=== PATIENT | male | born 1955 | race Caucasian/White ===

== ENCOUNTER 2019-07-21 12:56 | Outpatient (CLI) | payer BC, SELFPAY ==
--- NOTE | 2019-07-22 17:02 | ONC CON_ITS ---
Dr. West New Patient Note Patient: Lele Chowdhury Unit #: [id number]: 1955 Dicatated By: Calos West M.D.Date of Visit: Jul 21, 2019 Onc MED New Patient/Consult Referring Physician: Dr. Dionte Moss M.D. History of Present Illness: Mr. Alberto Chowdhury, is a 64-year-old gentleman with a history of tubulovillous adenoma involving cecum as per biopsies done in 2018 per colonoscopy patient underwent follow-up colonoscopy in May 2019 which showed benign fibroblastic polyp in sigmoid colon but more concerning was a large broad-based polyp in the cecum any sizable portion of this was removed with a snare and cannot pubic tubercle villous adenoma on superficial biopsies eventually patient underwent cecum and the right ascending colon/right hemicolectomy on 06/26/2019 which showed moderately differentiated adenocarcinoma tumor size 1 cm margins of resection free of malignancy tumor invades superficially into muscularis propria but not through the muscularis propria pT1 0 out of 15 lymph nodes were negative pN0 , there was incidental finding of adenocarcinoma tumor deposits present in the pericolonic tissue measuring up to 4 mm in greatest dimension. pN1c stage IIIa Patient denies any history of melena or hematochezia denies any history of abdominal pain patient denies any history of nausea vomiting denies any history of jaundice patient underwent CT scan of abdomen pelvis on 06/17/2019 which showed indeterminate right renal mass otherwise no evidence of metastatic disease Past Medical History: Mr. Chowdhury's medical history consists of anxiety, depression, and gastroesophageal reflux disease. Past Surgical History: Mr. Chowdhury's surgical/procedural history consists of colonoscopy, esophageal biopsy, and exploratory laparotomy with right hemicolectomy. Medications: There is no information available for Current Medications - Patient. Allergies: No Known Allergies. 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 He is a daily smoker who has smoked 0.5 packs/day for 30 years. He has no history of drinking. He has indicated exposure to the following products: cigarettes. Mr. Chowdhury reports the following support systems: lives with spouse, significant other, family, or friends, lives in own house, supportive family/friends willing to assist with needs, and adequate transportation available for expected visits. His diet consists of regular meals. He indicates his activity level as: regular exercise. Family History: Mr. Chowdhury's mother at age 76: Alzheimer's disease. Mr. Chowdhury's father is . Review Of Symptoms: Constitutional - Appetite is good and weight is stable. No fever, chills, hot flashes, or night sweats. Energy level is fair, ENMT - No sinus congestion/drainage. No mouth sores. No sore throat or difficulty swallowing, Hematologic/Lymphatic - No abnormal bruising or bleeding, Respiratory - No shortness of breath. No cough. No pleuritic pain or hemoptysis, Cardiovascular - No angina pain. No palpitations, Gastrointestinal - No nausea or vomiting. No heartburn or acid reflux. Positive for diarrhea, no constipation. No blood in the stool or black stools, Genitourinary (M) - No dysuria or hematuria. Positive for urinary frequency and urgency. No incontinence, Musculoskeletal - No joint or bone pain, Neurologic - No headache. Occasional dizziness. No numbness/paresthesias or other focal neurologic symptoms, Psychiatric - No anxiety or depression. No insomnia. Vital Signs: Performed on Jul 21, 2019 14:16: 0, 24.42, 1.93 sq.m, 69.5 in, 96 %, 74 /min, 18 /min, 141/71 mm(hg) (HIGH), 98.2 F (LOW), and 167.8 lbs (HIGH). Performance Status: 1 - No physically strenuous activity, but ambulatory and able to carry out light or sedentary work (e.g. office work, light house work). (ECOG) Physical Examination: ENMT - No oral exudates, ulcers, masses, thrush or mucositis. Oropharynx clear. Tongue normal, Respiratory - Lungs are clear to auscultation without rhonchi or wheezing, Cardiovascular - Regular rate and rhythm of heart, Abdomen - Non-tender, non-distended, Good bowel sounds. No guarding or rebound tenderness. No pulsatile masses.well shey surgical scar, Extremities - no edema. Lab/Imaging: Most recent lab results are not available for this patient. Impression: Moderately differentiated adenocarcinoma involving cecum status post right hemicolectomy final pathology report showed 1 cm invasive tumor margins were clear tumor invades superficially into muscularis propria but not through the muscularis propria pT1 0 out of 15 lymph nodes were negative pN0 Adenocarcinoma tumor deposits present in the pericolonic tissue measuring up to 4 mm in greatest dimension pN1c Pathological stage III a Plan: Discussed with patient regarding his disease status and final pathology report, as per pathology, patient has 1 cm invasive tumor with clear surgical margins and 0 out of 15 lymph nodes positive for metastatic disease but concern is pericolonic deposit measuring up to 4 mm. Very unusual with small size, low-grade, lymph node negative tumor At this point , we will review his path with pathologist to confirm pericolonic involvement as this will upstage his disease to stage IIIa , in that case as per N CCN guidelines he would be a candidate for adjuvant chemotherapy with FOLFOX every 2 weeks ???12. Patient is reluctant to consider chemotherapy but would consider if needed. Patient was reassured that we will discuss his case with pathology in detail and once confirmed then will make further decision so patient will return to clinic in 2 weeks with CBC CMP and for further discussion Signed By: Calos West M.D. <<Signature on File>>
== END 2019-07-21 12:57 | disposition home or self-care (01) ==
PROVIDERS: Visit Provider Internal Medicine Hematology & Oncology
DX: C18.2 Malignant neoplasm of ascending colon (principal); N28.89 Other specified disorders of kidney and ureter; F41.8 Other specified anxiety disorders; K21.9 Gastro-esophageal reflux disease without esophagitis; F17.210 Nicotine dependence, cigarettes, uncomplicated; Z90.49 Acquired absence of other specified parts of digestive tract
CPT/HCPCS: 88361; 88367; 88374; 99203

== ENCOUNTER 2019-07-29 02:02 | Emergency (ER) | payer BC, SELFPAY ==
[2019-07-29 02:09] VITALS: BP 148/84; PULSE 61; RESP 18; TEMP 36.7; O2SAT 98; BMI 25.4
--- NOTE | 2019-07-29 02:13 | ED_ITS ---
Entered by Danna Burnett, acting as scribe for Haven Boykin HPI - Eye Problem General: Chief complaint: Eye Problems Stated complaint: HIT IN EYE BY LIMB Time Seen by Provider: 07/29/19 02:13 Source: patient Mode of arrival: ambulatory History of Present Illness: HPI Narrative: 64 y/o male presents to the ED with complaint of eye pain post injury. Pt states he was cutting tree limbs with a chainsaw just before dark, yesterday evening when a branch hit him in the left eye. Pt states he waited to come in because he thought it would improve. Pt tried to sleep but was unsuccessful. MD chief complaint: eye pain and eye injury Onset (ago): day(s) (1) Onset description: sudden Duration: constant Location: left eye Eye Symptoms: pain Place: home Mechanism: direct trauma Severity: mild Associated symptoms: Denies fever(s), headache(s), nausea, neck pain or vomiting Review of Systems Const: Denies: fever, chills, body aches, fatigue, malaise or diaphoresis Eyes: Reports: other (See HPI) ENMT: Denies: throat pain, painful swallowing, hoarseness, ear pain, ear discharge, Change in hearing or nasal discharge Card: Denies: chest pain, palpitations, irregular heart rhythm, syncope, pre- syncope, shortness of breath on exertion or shortness of breath when lying down Resp: Denies: shortness of breath, productive cough, non-productive cough, wheezing, coughing up blood or chest congestion GI: Denies: abdominal pain, nausea, vomiting, vomiting blood, coffee grounds in vomit, diarrhea, constipation, cramping, blood in stool or black tarry stool : Denies: flank pain, difficulty urinating, painful urination, urinary frequency, urinary urgency, decreased urine ouput, urinary incontinence or blood in urine Musc: Denies: neck pain, back pain, extremity pain, extremity swelling, joint pain, joint swelling, joint warmth or joint stiffness Skin/Breast: Denies: rash, skin tenderness or yellow skin Neuro: Denies: headache, numbness in extremities, weakness in extremities, changes in sensation, lack of coordination, difficulty walking, dizziness, vertigo or confusion Endo: Denies: excessive thirst, tired all the time, cold intolerance, excessive sweating, flushing or hot flashes Ridge/Lymph: Denies: easy bruising, easy bleeding, petechiae or enlarged lymph nodes All/Imm: Denies: hives, throat swelling, tongue swelling, facial swelling or acute wheezing PFSH ED PFSH: Statuses (acute, chronic, etc) shown below reflect problem list status as previously entered and may not be historically accurate Social History Smoking and tobacco status: current every day smoker Physical Exam Const: COMMON NORMALS: no apparent distress, oriented x3, no limitations, healthy appearing and well nourished EXAM LIMITATIONS: no altered mental status GENERAL APPEARANCE: cooperative, well kempt and well developed ORIENTATION/CONSCIOUSNESS: Yes awake HENMT: COMMON NORMALS: normocephalic, head/scalp atraumatic, hearing grossly normal bilaterally, external ears normal, EAC's normal, external nose normal and moist oral mucous membranes HEAD & SCALP: normal to inspection, normocephalic and atraumatic FACE & SINUS: normal facial exam and face symmetric NOSE: external nose normal and nares normal EXTERNAL EAR: Yes external ears normal EXTERNAL AUDITORY CANAL: EAC's normal MOUTH: oral and palatal mucosa normal and tongue normal Eye: COMMON NORMALS: PERRL, EOMs intact bilaterally, conjunctivae normal, no scleral icterus, no papilledema and normal visual montoya by confrontation GENERAL EYE: normal appearance of both eyes and normal light reflex VISUAL ACUITY: Yes acuity normal VISUAL MONTOYA: No peripheral vision loss and No central vision loss ALIGNMENT: Yes alignment normal PERIORBITAL: periorbital findings normal EYELID: eyelids normal CONJUNCTIVA: Yes conjunctivae normal SCLERA: sclerae normal CORNEA: Yes fluorescein used and other (Small corneal abrasion noted to the left eye at the 3 o'clock position) PUPIL: Yes PERRL, No anisocoria, No dilated, No fixed, No irregular, No not reactive and Yes other (Negative Vicenta's test on the left) EOM: Yes EOM abnormal, No movement deficit and No nystagmus DIRECT OPHTHALMOSCOPY: Yes normal light reflex, Yes no papilledema, Yes anterior chamber normal (No sign of hyphema or cell and flare reaction in the anterior chamber) and Yes photophobia SLIT LAMP EXAM: Yes slit lamp exam performed with fluorescein, Yes lids/lashes/lacrimal system and Yes cornea (Small corneal abrasion at the 3 o'clock position of the left eye.) Neck/C-Spine: COMMON NORMALS: full ROM, no lymphadenopathy, supple, no meningeal signs and no JVD GENERAL: Yes normal visual inspection and Yes trachea midline CERVICAL SPINE: Yes cervical ROM normal Chest: COMMONS NORMALS: inspection of chest normal and palpation of chest normal Resp: COMMON NORMALS: normal respiratory effort, no retractions, no use of accessory muscles and clear to auscultation bilaterally EFFORT & INSPECTION: Yes able to speak in complete sentences AUSCULTATION: clear to auscultation bilaterally Cardio: COMMON NORMALS: no JVD, regular rate, regular rhythm, S1 normal heart sound, S2 normal heart sound, no gallops, no clicks, no murmurs and no rub JUGULAR VENOUS DISTENTION: no JVD RATE: regular rate RHYTHM: regular rhythm HEART SOUNDS: S1 normal and S2 normal GI: COMMON NORMALS: soft to palpation, non-tender, no hepatosplenomegaly and no masses INSPECTION: Yes normal to inspection PALPATION: Yes soft and Yes no hepatosplenomegaly : COMMON NORMALS: Yes no CVA tenderness BLADDER/KIDNEY EXAM: Yes no CVA tenderness Back/Pelvis: COMMON NORMALS: no CVA tenderness, thoracic and lumbar spine no rmal to inspection, no thoracic nor lumbar tenderness and thoraco-lumbar ROM normal Extremity: COMMON NORMALS: normal to inspection, full ROM, normal capillary refill, no joint enlargement, no clubbing, cyanosis or edema and no calf tenderness Neuro: COMMON NORMALS: oriented x3, CN's II-XII intact bilaterally, moves all extremities, no focal motor deficits and no sensory deficits noted MENINGEAL SIGNS: Yes no meningeal signs Psych: COMMON NORMALS: mental status grossly normal, thought process normal, cooperative, affect normal, speech normal and activity/motor behavior normal APPEARANCE: Yes well kempt SPEECH: Yes normal speech THOUGHT PROCESS: normal thought process Skin: COMMON NORMALS: no rashes or lesions noted, skin turgor normal, no jaundice, no petechiae and no mottling GENERAL SKIN EXAM: no rashes or lesions noted and turgor normal Course Vital Signs: Vital signs: Vital Signs Temperature 98.1 F 07/29/19 02:09 Pulse Rate 68 07/29/19 02:35 Respiratory Rate 16 07/29/19 02:35 Blood Pressure 148/84 07/29/19 02:35 Pulse Oximetry 94 07/29/19 02:35 MDM - Eye Problem MDM Narrative: Medical decision making narrative: Lele comes in complaining of a blow to the left eye. I see small corneal abrasion but no foreign body is obvious. I have informed him to follow-up with Dr. Yancey tomorrow but the patient is already stated he wanted to be certain nothing was in there and if not he will not follow-up. Nonetheless I will have case management contact him in the morning for an appointment to be seen later today for recheck. It is unclear whether the patient plans to make that appointment. At this time I see no sign of ruptured globe, no retained foreign body but only a corneal abrasion. I did inform the patient that there is a potential I could have missed something and a specialist will need to review this and he understands that but it appears as though he may not follow-up as advised. The patient has been warned. Discharge Plan Discharge Patient Disposition: Home, Self-Care Clinical Impression: Corneal abrasion Qualifiers: Encounter type: initial encounter Laterality: left Qualified Code(s): S05.02XA - Injury of conjunctiva and corneal abrasion without foreign body, left eye, initial encounter Condition: Stable Prescriptions: New erythromycin 5 mg/gram (0.5 %) ointment 1 applic ophthalmic (eye) Q6H Qty: 3.5 RF: 0 Discharge Orders: Discharge Order (Routine); Ordered 07/29/19 Ordered By: Haven Boykin Discharge Diet: Usual diet Discharge Activity: Increase activity as tolerated Patient Instructions: Corneal Abrasion (ED) Activity Restrictions/Additional Instructions: Please return to the ER immediately for any of the signs or symptoms listed on your discharge instruction sheets, worsening/changing of your symptoms, you are not getting better as quickly as expected, or for ANY other cause or concerns. Be certain to follow-up with Dr. Yancey later this morning in his office for recheck. If for any reason you are unable to be seen by Dr. Yancey return to the ER for recheck. Discharge Date/Time: 07/29/19 03:00 Coding Level of Care Code ED Blood Bank Specialist for Chg Fwd Exam Problem Focused The documentation recorded by the Lex childress Ashley, accurately reflects the service I personally performed and the decisions made by Lucretia horta Eli N Jul 29, 2019 02:02
[2019-07-29 02:35] VITALS: BP 148/84; PULSE 68; RESP 16; O2SAT 94
--- NOTE | 2019-07-29 02:46 | PC.NURSE ---
Introduced self to patient and initiated vital signs. Pt is A&O x 4 and agreeable. Pt states that the reason for the ER visit today is due to a left eye injury from cutting wood earlier in the day. Reassured patient of needs and will continue to monitor. Awaiting provider at bedside.
[2019-07-29] MEDS: fluorescein 1 mg Strip EYE-BOTH (03:16)
[2019-07-29] MEDS: tetracaine 0.5% Op Soln 4 mL Btl 1 DROP EYE-BOTH (03:17)
[2019-07-29] MEDS: fluorescein 1 mg Strip EYE-LEFT (03:17)
--- NOTE | 2019-07-29 11:17 | DCPLANNER ---
instrumentation manager had message to speak with patient and give patient the contact information to Dr. Yancey. instrumentation manager called patient, gave patient the phone number to Dr. Yancey office, and the address of where clinic is located. instrumentation manager offered to make a followup appointment for patient with Dr. Yancey, patient stated that he would make the appointment himself.
== END 2019-07-29 03:00 | disposition home or self-care (01) ==
PROVIDERS: Emergency Provider Emergency Medicine
DX: S05.02XA Injury of conjunctiva and corneal abrasion without foreign body, left eye, initial encounter (principal); W20.8XXA Other cause of strike by thrown, projected or falling object, initial encounter; Y92.009 Unspecified place in unspecified non-institutional (private) residence as the place of occurrence of the external cause; F17.210 Nicotine dependence, cigarettes, uncomplicated
CPT/HCPCS: 99281

== ENCOUNTER 2019-08-06 11:12 | Outpatient (CLI) | payer BC, SELFPAY ==
[2019-08-06 11:57] LABS: Basophils % 0.3 %; Eosinophils # 0.1 10^3/uL (0.0-0.8); Eosinophils % 2.3 %; Hemoglobin 16.4 g/dL (11.7-16.6); Lymphocytes # 1.9 10^3/uL (0.8-4.8); Lymphocytes % 32.1 %; Mean Corpuscular HGB Conc 33.5 g/dL (30.0-36.0); Mean Corpuscular Hemoglobin 30.9 pg (28.0-34.0); Mean Corpuscular Volume 92.5 fL (80-94); Mean Platelet Volume 9.3 fL (7.4-10.4); Monocytes # 0.7 10^3/uL (0.2-0.9); Monocytes % 10.8 %; Neutrophils # 3.3 10^3/uL (1.8-7.7); Neutrophils % 54.2 %; Nucleated Red Blood Cells % 0 %; Platelet Count 249 10^3/cmm (130-400); Red Cell Distribution Width 12.3 % (12.1-15.1)
--- NOTE | 2019-08-06 14:50 | ONC FU_ITS ---
Dr. West follow up note Patient: Lele Chowdhury Unit #: [id number]: 1955 Dicatated By: Calos West M.D.Date of Visit:Aug 06, 2019 Onc Med Follow-up/Prog Note History of Present Illness: Mr. Alberto Chowdhury, is a 64-year-old gentleman with a history of tubulovillous adenoma involving cecum as per biopsies done in 2018 per colonoscopy patient underwent follow-up colonoscopy in May 2019 which showed benign fibroblastic polyp in sigmoid colon but more concerning was a large broad-based polyp in the cecum any sizable portion of this was removed with a snare and cannot pubic tubercle villous adenoma on superficial biopsies eventually patient underwent cecum and the right ascending colon/right hemicolectomy on 06/26/2019 which showed moderately differentiated adenocarcinoma tumor size 1 cm margins of resection free of malignancy tumor invades superficially into muscularis propria but not through the muscularis propria pT1 0 out of 15 lymph nodes were negative pN0 , there was incidental finding of adenocarcinoma tumor deposits present in the pericolonic tissue measuring up to 4 mm in greatest dimension. pN1c stage IIIa Later on case was discussed in tumor board and pathologist Dr. Yancey reviewed the pathology and did the addendum, now total 18 lymph nodes were reviewed and 4 out of 18 showed metastatic disease , pN2 and as per Dr. Yancey those pericolonic deposit in fact were lymph nodes. Patient denies any history of melena or hematochezia denies any history of abdominal pain patient denies any history of nausea vomiting denies any history of jaundice patient underwent CT scan of abdomen pelvis on 06/17/2019 which showed indeterminate right renal mass otherwise no evidence of metastatic disease Came for follow-up, denies any specific complaints, except chronic diarrhea not being controlled with Pepto-Bismol with. No fever or chills, no melena hematochezia, no nausea or vomiting, no jaundice, no melena hematochezia. Medications: This patient reports not taking external medications. Allergies: No Known Allergies. Review of Systems: Constitutional - Appetite is good and weight is stable. No fever, chills, hot flashes, or night sweats. Energy level is fair, ENMT - No sinus congestion/drainage. No mouth sores. No sore throat or difficulty swallowing, Hematologic/Lymphatic - No abnormal bruising or bleeding, Respiratory - No shortness of breath. No cough. No pleuritic pain or hemoptysis, Cardiovascular - No angina pain. No palpitations, Gastrointestinal - No nausea or vomiting. No heartburn or acid reflux. Positive for diarrhea, no constipation. No blood in the stool or black stools, Genitourinary (M) - No dysuria or hematuria. Positive for urinary frequency and urgency. No incontinence, Musculoskeletal - No joint or bone pain, Neurologic - No headache. Occasional dizziness. No numbness/paresthesias or other focal neurologic symptoms, Psychiatric - No anxiety or depression. No insomnia. Vital Signs: Performed on Aug 06, 2019 12:40 Height - 69.50 in Weight - 165.2 lbs (LOW) BSA - 1.91 sq.m BMI - 24.05 Temperature - 97.9 F (LOW) Pulse - 64 /min Respiration - 18 /min BP - 142/88 mm(hg) (HIGH) O2 Sat - 98 % Pain - 0 Performance Status: 0 - Fully active, able to carry on all predisease activities without restrictions. (ECOG) Physical Examination: ENMT - No oral exudates, ulcers, masses, thrush or mucositis. Oropharynx clear. Tongue normal, Respiratory - Lungs are clear to auscultation without rhonchi or wheezing, Cardiovascular - Regular rate and rhythm of heart, Abdomen - Non-tender, non-distended, Good bowel sounds. No guarding or rebound tenderness. No pulsatile masses, Extremities - no edema. Lab/Imaging: Most recent lab results are not available for this patient. Impression: Moderately differentiated adenocarcinoma involving cecum status post right hemicolectomy final pathology report showed 1 cm invasive tumor margins were clear tumor invades superficially into muscularis propria but not through the muscularis propria pT1 Revised pathology report done on 07/25/[address] Yancey, pathologist, confirmed those paracolonic deposits were in fact, lymph nodes so as per addendum now patient has 4 out of 18 lymph nodes positive for metastatic disease pN2 (as compared to earlier0 out of 15 lymph nodes were negative pN0) Plan: Discussed with patient regarding his labs white blood count 6 hemoglobin 16.4 hematocrit 49 platelets 249,000 and revised Pathology report which confirmed paracolonic deposits as lymph nodes so now patient has 4 out of 18 lymph nodes positive for metastatic disease, that will make stage IIIB Clinically, patient is doing well with no new symptoms except persistent chronic diarrhea which could be due to bile malabsorption, we will try cholestyramine. As far as revised pathology report is concern, his case was discussed in tumor board, there Dr. Yancey ,pathologist reviewed his pathology and upstaged to pN2 disease as those pericolonic deposits as mentioned earlier in the report were , in fact, lymph nodes. E.g. stage IIIB, as per N CCN guidelines, patient is a candidate for adjuvant chemotherapy with FOLFOX biweekly ???12 Discussed with patient regarding role of adjuvant chemotherapy and lymph node positive disease, all the side effects possible associated benefits including but not limited to bone marrow suppression, hepatotoxicity, mouth sores, diarrhea, peripheral neuropathy, were mentioned further teaching will be done by chemotherapy nurse. And he expressed full understanding and accepted the treatment, we will obtain approval from his insurance prior to the treatment in the meantime request Dr. Moss for Port-A-Cath placement. And patient will return to clinic 1 week after chemotherapy is initiated with CBC CMP. Signed By: Calos West M.D. <<Signature on File>>
== END 2019-08-06 11:13 | disposition home or self-care (01) ==
PROVIDERS: Visit Provider Internal Medicine Hematology & Oncology
DX: C18.0 Malignant neoplasm of cecum (principal); C77.2 Secondary and unspecified malignant neoplasm of intra-abdominal lymph nodes; K52.9 Noninfective gastroenteritis and colitis, unspecified; Z90.49 Acquired absence of other specified parts of digestive tract
CPT/HCPCS: 85025; 99214

== ENCOUNTER 2019-12-10 17:20 | Emergency (ER) | payer BC, SELFPAY ==
[2019-12-10 17:26] VITALS: BP 124/74; PULSE 72; RESP 16; TEMP 37.2; O2SAT 94; BMI 25.0
--- NOTE | 2019-12-10 17:48 | CTR_ITS ---
PROCEDURE INFORMATION: Exam: CT Abdomen And Pelvis With Contrast Exam date and time: 12/10/2019 6:37 PM Age: 64 years old Clinical indication: Abdominal pain; Prior surgery; Surgery type: Appy; Additional info: Abd pain TECHNIQUE: Imaging protocol: Computed tomography of the abdomen and pelvis with intravenous contrast. Radiation optimization: All CT scans at this facility use at least one of these dose optimization techniques: automated exposure control; mA and/or kV adjustment per patient size (includes targeted exams where dose is matched to clinical indication); or iterative reconstruction. Contrast material: OMNI 300; Contrast volume: 95 ml; Contrast route: IV; COMPARISON: CT abdomen pelvis w con* [id number] 06/17/2019 3:08 PM RADIATION DOSE METRICS: Total DLP: 604.77 mGy-cm FINDINGS: Lungs: Mild atelectasis. Liver: Normal. No mass. Gallbladder and bile ducts: The gallbladder is contracted. The bile ducts are normal. Pancreas: Normal. No ductal dilation. Spleen: Calcified granuloma in a normal sized spleen. Adrenals: Normal. No mass. Kidneys and ureters: 2.9 cm pedunculated lesion in the inferior right kidney, Hounsfield units 53. Fluid density cysts in both kidneys measuring 3.0 cm on the right and 2.5 cm on the left. No calculus or hydronephrosis. Stomach and bowel: Right hemicolectomy with ileocolonic anastomosis at the proximal transverse colon. Fluid-filled small bowel which gradually increases in diameter distally measuring up to 2.5 cm. Appendix: No evidence of appendicitis. Intraperitoneal space: Unremarkable. No free air. No significant fluid collection. Vasculature: Unremarkable. No abdominal aortic aneurysm. Lymph nodes: Stable subcentimeter periesophageal lymph node. Bladder: Unremarkable as visualized. Reproductive: Coarse calcifications in the prostate which is mildly enlarged. Bones/joints: Degenerative spine. No compression fracture. Soft tissues: Anterior laparotomy scar. CT/CT abdomen pelvis w con* [id number] IMPRESSION: 1. Fluid-filled loops of mildly dilated small bowel most likely represents ileus or enteritis. 2. Interval right hemicolectomy. 3. 2.9 cm soft tissue density lesion in the inferior right kidney measures smaller than on the prior study and is presumably benign. This could represent a hemorrhagic cyst although a solid neoplasm is not entirely excluded. Follow-up with dedicated renal mass CT or MRI is still recommended. 4. Bilateral fluid density renal cysts. No follow-up recommended. Radiation Dose CTDIVOL = (mGy): DLP = 604.77 (mGy-cm)
--- NOTE | 2019-12-10 17:48 | ECG_ITS ---
Measurements Intervals [place] Rate: 76 P: 39 [place]: 181 QRS: 62 QRSD: 96 T: 25 QT: 332 QTc: 374 SINUS RHYTHM NONSPECIFIC T-WAVE ABNORMALITY No previous ECG available for comparison Electronically Signed On 12-10-2019 20:58:13 CDT by Guerline Peña M.D. [email or web address]
[2019-12-10] MEDS: sodium chloride 0.9% 1,000 ML 999 ML IV (18:11)
[2019-12-10 18:12] LABS: Basophils % 0.2 %; Eosinophils % 0.1 %; Hematocrit 46.8 % (42.0-52.0); Hemoglobin 15.6 g/dL (11.7-16.6); Lymphocytes # 1.7 10^3/uL (0.8-4.8); Lymphocytes % 9.8 %; Mean Corpuscular HGB Conc 33.3 g/dL (30.0-36.0); Mean Corpuscular Hemoglobin 31.3 pg (28.0-34.0); Mean Platelet Volume 9.1 fL (7.4-10.4); Monocytes % 5.7 %; Neutrophils # 14.5 10^3/uL (1.8-7.7); Neutrophils % 83.7 %; Nucleated Red Blood Cells % 0 %; Platelet Count 229 10^3/cmm (130-400); Red Blood Count 4.98 10^6/uL (4.1-5.3); Red Cell Distribution Width 12.4 % (12.1-15.1); White Blood Count 17.4 10^3/uL (4.0-10.0)
[2019-12-10 18:26] LABS: Alanine Aminotransferase 14 U/L (0-41); Albumin Level 4.1 g/dL (3.5-5.2); Alkaline Phosphatase 83 IU/L (40-130); Anion Gap 16.8 (5-19); Aspartate Amino Transferase 15 U/L (0-40); Blood Urea Nitrogen 15 mg/dL (8-23); Calcium 9.1 mg/dL (8.5-10.5); Carbon Dioxide 22 mmol/L (22-29); Chloride 102 mmol/L (98-107); Globulin 2.2 g/dL (1.3-4.6); Glomerular Filtration Rate 97.6 mL/min (90-130); Glucose 109 mg/dL (65-115); Lactate (Lactic Acid level) 1.2 mmol/L (0.5-2.2); Lipase 26 U/L (13-60); Osmolality Calculated 281 mOsm/kg (285-295); Potassium 3.8 mmol/L (3.5-5.1); Sodium 137 mmol/L (136-145); Total Bilirubin 0.5 mg/dL (0.15-1.2); Total Protein 6.3 g/dL (6.6-8.7)
--- NOTE | 2019-12-10 18:46 | ED_ITS ---
HPI - Abdominal Pain General: Chief Complaint: Abdominal Pain Stated Complaint: abd pain Time Seen by Provider: 12/10/19 17:47 History of Present Illness: HPI narrative: Mr. Chowdhury is a 64-year-old male who comes in complaining of abrupt onset of bilateral lower quadrant abdominal pain. He states the pain began at 930 this morning in an abrupt manner. He describes the pain as an ache. The pain does not radiate and has been constant. He does not wax and wane but just been constant throughout the day. He has had nauseousness but has not vomited. He has had a subjective fever but never measured a temperature. He denies any urinary frequency or urgency and denies any dysuria or hematuria. He has not had anything similar to this in the past and he is unaware of any exacerbating or alleviating factors. The patient has not tried anything for this at home other than rest. Of note the patient had had a right hemicolectomy in the past secondary to what was believed to be a cancerous polyp by Dr. Moss. That was in June of last year. The patient received some radiation but never underwent chemotherapy. Patient denies any change to his bowel habits and states he had a bowel movement either today or yesterday which was normal for him, it was nonbloody but loose which is his normal. Associated Symptoms: Reports nausea; Denies chills, coffee ground emesis, constipation, GI cramping, diarrhea, dysuria, fever(s), heartburn, hematochezia, hematuria, hematemesis, melena, syncope and vomiting Review of Systems Const: Denies: fever(s), chills, body aches, fatigue, malaise or diaphoresis Eyes: Denies: change in vision, blurry vision, blind spots or photophobia ENMT: Denies: throat pain, odynophagia, hoarseness, swelling of lips/tongue, ear or mastoid pain, ear discharge, change in hearing or nasal discharge Card: Denies: chest pain, palpitations, irregular heart rhythm, edema, lightheadedness, syncope, pre-syncope, dyspnea on exertion or orthopnea Resp: Denies: dyspnea, productive cough, non-productive cough, wheezing, hemoptysis or chest congestion GI: Reports: abdominal pain and nausea; Denies: vomiting, hematemesis, coffee ground emesis, heartburn, diarrhea, constipation, GI cramping, hematochezia or melena : Denies: flank pain, dysuria, urinary frequency, urinary urgency or hematuria Musc: Denies: neck pain, back pain, extremity pain, extremity swelling, joint pain, joint swelling, joint redness, joint warmth or joint stiffness Skin/Breast: Denies: rash, pruritus, erythema, skin tenderness or jaundice Neuro: Denies: headache(s), numbness in extremities, weakness in extremities, sensory changes, lack of coordination, difficulty walking, dizziness, vertigo, confusion or Slurred speech present Ridge/Lymph: Denies: easy bruising, easy bleeding, petechiae, purpura or enlarged lymph nodes All/Imm: Denies: urticaria, throat swelling, tongue swelling, facial swelling or acute wheezing PFSH ED PFSH: Medical History Colon cancer Colon polyps Surgical History H/O right hemicolectomy S/P appendectomy Social History Smoking and tobacco status: current every day smoker Physical Exam Const: COMMON NORMALS: no acute distress, patient oriented x3, no limitations, healthy appearing and well nourished GENERAL APPEARANCE: cooperative, well kempt and well developed HENMT: COMMON NORMALS: normocephalic, atraumatic, hearing grossly normal bilaterally, external ears normal, EAC's normal, Normal external nose present and moist oral mucous membranes HEAD & SCALP: normocephalic and atraumatic NOSE: Normal external nose present and Normal nares present EXTERNAL EAR: Yes external ears normal EXTERNAL AUDITORY CANAL: EAC's normal MOUTH: Normal oral and palatal mucosa present, lip normal and tongue normal Eye: COMMON NORMALS: Equal, round and reactive pupils present, EOMs intact bilaterally, conjunctivae normal and no scleral icterus GENERAL EYE: appearance normal, both eyes and all related structures ALIGNMENT: Yes alignment normal PERIORBITAL: periorbital findings normal EYELID: eyelids normal CONJUNCTIVA: Yes conjunctivae normal SCLERA: sclerae normal PUPIL: Yes Equal, round and reactive pupils present Neck/C-Spine: COMMON NORMALS: full ROM, no lymphadenopathy, supple, no meningeal signs and no JVD GENERAL: Yes normal visual inspection and Yes trachea midline Chest: COMMONS NORMALS: normal inspection of the chest and normal palpation of entire chest wall Resp: COMMON NORMALS: normal respiratory effort, No retractions, No use of accessory muscles and clear to auscultation bilaterally EFFORT & INSPECTION: Yes able to speak in complete sentences and Yes symmetric chest movement AUSCULTATION: clear to auscultation bilaterally, no crackles, no rales, no rhonchi and no wheezes Cardio: COMMON NORMALS: no JVD, regular rate, regular rhythm, S1 normal heart sound present, S2 normal heart sound present, No gallops present (Cardio), No clicks present (Cardio), No murmurs present (Cardio) and No rub (Cardio) RATE: regular rate RHYTHM: regular rhythm HEART SOUNDS: S1 normal heart sound present and S2 normal heart sound present GI: COMMON NORMALS: Soft to palpation and No hepatosplenomegaly present PALPATION: Yes Soft to palpation, Yes Tenderness to palpation present (GI) (B ilateral lower quadrants without rebound or guarding.), No Guarding due to palpation present (GI), No Rigid due to palpation, Yes No hepatosplenomegaly present, No Hernia present, No Palpable mass present and No Pulsatile mass present : COMMON NORMALS: Yes no CVA tenderness BLADDER/KIDNEY EXAM: Yes no CVA tenderness Back/Pelvis: COMMON NORMALS: no CVA tenderness, thoracic and lumbar spine normal to inspection, no thoracic nor lumbar tenderness and thoraco-lumbar ROM normal Extremity: COMMON NORMALS: normal to inspection, full ROM, capillary refill normal, no joint enlargement, no clubbing, cyanosis or edema and no calf tenderness Neuro: COMMON NORMALS: patient oriented x3, CN's II-XII intact bilaterally, moves all extremities, no focal motor deficits and no sensory deficits noted MENINGEAL SIGNS: Yes no meningeal signs SPEECH: speech normal Psych: COMMON NORMALS: mental status grossly normal, Normal thought process present, cooperative, normal affect, speech normal and activity/motor behavior normal APPEARANCE: Yes well kempt SPEECH: Yes normal speech THOUGHT PROCESS: Normal thought process present Skin: COMMON NORMALS: no rashes or lesions noted, turgor normal, no jaundice, no petechiae and no mottling GENERAL SKIN EXAM: no rashes or lesions noted and turgor normal Course Vital Signs: Vital signs: Vital Signs Temperature 98.9 F 12/10/19 17:26 Pulse Rate 72 12/10/19 17:26 Respiratory Rate 16 12/10/19 17:26 Blood Pressure 124/74 12/10/19 17:26 Pulse Oximetry 94 12/10/19 17:26 MDM - Abdominal Pain MDM Narrative: Medical decision making narrative: Arrival -Lele is a 64-year-old male comes in complaining of abrupt onset abdominal pain. His vital signs are stable but he does have significant tenderness to palpation. Differential includes peritonitis, bowel obstruction, abdominal aortic aneurysm, UTI, diverticulitis among many others. Sinusitis I think to be ruled out as they state he had this removed when he had his right hemicolectomy. We will proceed with treating his pain and of evaluating for primary GI cause. Discharge -no evidence of AAA, bowel obstruction, diverticulitis or severe life- threatening problem on CT is seen. CT does show enteritis versus ileus. I will place the patient on Cipro and Flagyl in case of an enteritis but at this time he is afebrile and not vomiting. Because he can take oral medications I believe him safe to be discharged. On repeat physical exam there is no sign of peritonitis. Patient agrees to take these antibiotics and follow a clear liquid diet to be advanced as tolerated. He will follow-up with the nurse practitioner that he sees at [facility] or Dr. Lawrence who is on-call today there this week. We did review at length the reasons for which to return to the ER and he agrees to do so if necessary. At this time though he is feeling better and is ready to be discharged. Lab Data: Attestation: I reviewed the patient's lab results. Labs: Lab Results 12/10/19 12/10/19 12/10/19 Range/Units 18:02 18:02 18:02 WBC 17.4 H (4.0-10.0) 10^3/ uL RBC 4.98 (4.1-5.3) 10^6/u L Hgb 15.6 (11.7-16.6) g/dL Hct 46.8 (42.0-52.0) % MCV 94.0 (80-94) fL MCH 31.3 (28.0-34.0) pg MCHC 33.3 (30.0-36.0) g/dL RDW 12.4 (12.1-15.1) % Plt Count 229 (130-400) 10^3/c mm MPV 9.1 (7.4-10.4) fL Neut % (Auto) 83.7 % Lymph % (Auto) 9.8 % [place] % (Auto) 5.7 % Eos % (Auto) 0.1 % Baso % (Auto) 0.2 % Neut # (Auto) 14.5 H (1.8-7.7) 10^3/u L Lymph # (Auto) 1.7 (0.8-4.8) 10^3/u L [place] # (Auto) 1.0 H (0.2-0.9) 10^3/u L Eos # (Auto) 0.0 (0.0-0.8) 10^3/u L Baso # (Auto) 0.0 (0.0-0.1) 10^3/u L Nucleated RBC % (a uto) 0 % Nucleated RBCs # 0.0 /100WBC Sodium 137 (136-145) mmol/L Potassium 3.8 (3.5-5.1) mmol/L Chloride 102 (98-107) mmol/L Carbon Dioxide 22 (22-29) mmol/L Anion Gap 16.8 (5-19) BUN 15 (8-23) mg/dL Creatinine 0.8 (0.7-1.2) mg/dL GFR Calculation 97.6 (90-130) mL/min Glucose 109 (65-115) mg/dL Calculated Osmolal ity 281 L (285-295) mOsm/k g Lactate 1.2 (0.5-2.2) mmol/L Calcium 9.1 (8.5-10.5) mg/dL Total Bilirubin 0.5 (0.15-1.2) mg/dL AST 15 (0-40) U/L ALT 14 (0-41) U/L Alkaline Phosphata se 83 (40-130) IU/L Troponin T Baselin e (0-15) ng/mL Total Protein 6.3 L (6.6-8.7) g/dL Albumin 4.1 (3.5-5.2) g/dL Globulin 2.2 (1.3-4.6) g/dL Lipase 26 (13-60) U/L Urine Color (Yellow) Urine Appearance (CLEAR) Urine pH (5-7) Ur Specific Gravit y (1.005-1.030) Urine Protein (Negative) Urine Glucose (UA) (Normal) Urine Ketones (Negative) Urine Blood (Negative) Urine Nitrate (Negative) Urine Bilirubin (NEGATIVE) Urine Urobilinogen (Negative) mg/dL Ur Leukocyte Mone ase (Negative) Urine RBC (0-2) /hpf Urine WBC (0-5) /hpf Ur Squamous Epith Cells (0-5) Ur Transition Epit h Cell /hpf Ur Renal Epithelia l Cell /hpf Amorphous Sediment Urine Bacteria (NONE) Serum Ketones (Negative) 12/10/19 12/10/19 12/10/19 Range/Units 18:02 18:02 18:04 WBC (4.0-10.0) 10^3/ uL RBC (4.1-5.3) 10^6/u L Hgb (11.7-16.6) g/dL Hct (42.0-52.0) % MCV (80-94) fL MCH (28.0-34.0) pg MCHC (30.0-36.0) g/dL RDW (12.1-15.1) % Plt Count (130-400) 10^3/c mm MPV (7.4-10.4) fL Neut % (Auto) % Lymph % (Auto) % [place] % (Auto) % Eos % (Auto) % Baso % (Auto) % Neut # (Auto) (1.8-7.7) 10^3/u L Lymph # (Auto) (0.8-4.8) 10^3/u L [place] # (Auto) (0.2-0.9) 10^3/u L Eos # (Auto) (0.0-0.8) 10^3/u L Baso # (Auto) (0.0-0.1) 10^3/u L Nucleated RBC % (a uto) % Nucleated RBCs # /100WBC Sodium (136-145) mmol/L Potassium (3.5-5.1) mmol/L Chloride (98-107) mmol/L Carbon Dioxide (22-29) mmol/L Anion Gap (5-19) BUN (8-23) mg/dL Creatinine (0.7-1.2) mg/dL GFR Calculation (90-130) mL/min Glucose (65-115) mg/dL Calculated Osmolal ity (285-295) mOsm/k g Lactate (0.5-2.2) mmol/L Calcium (8.5-10.5) mg/dL Total Bilirubin (0.15-1.2) mg/dL AST (0-40) U/L ALT (0-41) U/L Alkaline Phosphata se (40-130) IU/L Troponin T Baselin e 6 (0-15) ng/mL Total Protein (6.6-8.7) g/dL Albumin (3.5-5.2) g/dL Globulin (1.3-4.6) g/dL Lipase (13-60) U/L Urine Color Yellow (Yellow) Urine Appearance Cloudy (CLEAR) Urine pH 7 (5-7) Ur Specific Gravit y 1.010 (1.005-1.030) Urine Protein Neg (Negative) Urine Glucose (UA) Norm (Normal) Urine Ketones Negative (Negative) Urine Blood Neg (Negative) Urine Nitrate Negative (Negative) Urine Bilirubin Neg (NEGATIVE) Urine Urobilinogen Norm (Negative) mg/dL Ur Leukocyte Mone ase Negative (Negative) Urine RBC None (0-2) /hpf Urine WBC None (0-5) /hpf Ur Squamous Epith Cells None (0-5) Ur Transition Epit h Cell None /hpf Ur Renal Epithelia l Cell None /hpf Amorphous Sediment 2+ Urine Bacteria Trace (NONE) Serum Ketones Negative (Negative) EKG Data ^: EKG 1: Attestation: I personally reviewed and interpreted this EKG as follows: EKG interpretation date: 12/10/19 EKG interpretation time: 18:43 Interpretation: Normal sinus rhythm at 76 beats a minute, no acute ST or T wave changes, no blocks, normal intervals. Discharge Plan Discharge Patient Disposition: Home, Self-Care Clinical Impression: Adynamic ileus, Enteritis Condition: Stable Prescriptions: New Flagyl 500 mg tablet 500 mg PO TID 10 Days Qty: 30 RF: 0 Cipro 500 mg tablet 500 mg PO BID Qty: 20 RF: 0 promethazine 25 mg tablet 25 mg PO Q4H PRN (Reason: nausea and vomiting) Qty: 20 RF: 0 No Action potassium gluconate 595 mg (99 mg) Tablet 1,190 - 1,785 mg PO PRN RF: 0 Discharge Orders: Discharge Order (Routine); Ordered 12/10/19 Ordered By: Haven Boykin Referrals: Dionte Moss MD [Physician] - Earl Lawrence MD [Physician] - 1-3 days Discharge Diet: Clear Liquid Discharge Activity: Increase activity as tolerated Patient Instructions: Ileus (ED) Activity Restrictions/Additional Instructions: Please return to the ER immediately for any of the signs or symptoms listed on your discharge instruction sheets, worsening/changing of your symptoms, you are not getting better as quickly as expected, or for ANY other cause or concerns. Take the medications I have prescribed and follow a clear liquid diet until your symptoms have resolved. Then slowly advance your diet to colored fluids, then soft foods back to a normal diet. Be certain to follow-up with Dr. Lawrence or the nurse practitioner that cares for you at [facility] for recheck. Return sooner for increased pain, fever, vomiting, or for any other cause for concern. Coding Level of Care Code ED Bilingual Hr Generalist for Hiteshg Fwd Exam Comprehensive
[2019-12-10 18:52] LABS: Ketone (Acetest) Serum Negative (Negative)
[2019-12-10] MEDS: iohexol 300 mg/mL 100 mL Btl 95 ML IV (18:58)
[2019-12-10 19:02] LABS: Add Urine Microscopic? YES; Bilirubin Urine Neg (NEGATIVE); Blood Urine Neg (Negative); Glucose Urine UA Norm (Normal); Ketones Urine Negative (Negative); Leukocyte Esterase Urine Negative (Negative); Nitrate Urine Negative (Negative); Protein Urine Neg (Negative); Urine Appearance Cloudy (CLEAR); Urine Color Yellow (Yellow); Urobilinogen Urine Norm (Negative); pH Urine 7 (5-7)
[2019-12-10 19:13] LABS: Add Urine Culture? No; Amorphous Sediment Urine 2+
[2019-12-10 19:27] LABS: Troponin(5th) Baseline 6 ng/mL (0-15)
[2019-12-10 19:38] LABS: Bacteria Urine TRACE
--- NOTE | 2019-12-10 19:45 | PC.NURSE ---
PT STATES HE'D LIKE TO WAIT AND TAKE PAIN MED LATER, STATES HIS PAIN IS TOLERABLE AT THIS TIME. DR MATTHEW NOTIFIED.
[2019-12-10 20:29] LABS: Troponin 5 2HR 9.92 ng/mL (0-15); Troponin 5 2HR Delta 3.92 ABS# (0-10)
[2019-12-10] MEDS: ciprofloxacin 500 mg Tablet PO (20:52)
[2019-12-10] MEDS: metroNIDAZOLE 500 MG Tablet PO (21:16)
[2019-12-10 21:17] VITALS: BP 142/60; PULSE 72; RESP 18; O2SAT 98
[2019-12-12 12:36] LABS: Lyme AB Screen <0.90 index
[2019-12-16 16:26] LABS: E. Chaffeensis AB IGG <1:64; E. Chaffeensis AB IGM <1:20; RMSF IGG NOT DETECTED; RMSF IGM NOT DETECTED
== END 2019-12-10 21:23 | disposition home or self-care (01) ==
PROVIDERS: Family Medicine; Nurse Practitioner Family; Emergency Provider Emergency Medicine
DX: K56.0 Paralytic ileus (principal); K52.9 Noninfective gastroenteritis and colitis, unspecified; Z85.038 Personal history of other malignant neoplasm of large intestine; F17.210 Nicotine dependence, cigarettes, uncomplicated
CPT/HCPCS: 12345; 74177; 80053; 81001; 82009; 83605; 83690; 84484; 85025; 93005; 96361; 96374; 96375; 99283; 99284; J7030; Q9967

== ENCOUNTER → 2021-09-14 15:47 | Outpatient (BNVA) | payer MEDICARE, OTHER, SELFPAY | PROVIDERS: Referring Provider Family Medicine; Visit Provider Orthopaedic Surgery | DX: G56.00 Carpal tunnel syndrome, unspecified upper limb (principal); M19.031 Primary osteoarthritis, right wrist | CPT/HCPCS: 73110 ==

== ENCOUNTER 2023-04-19 08:05 | Outpatient (CLI) | payer MEDICARE, SELFPAY ==
--- NOTE | 2023-04-19 08:13 | CT_ITS ---
WS: [id number] LDCT LUNG CANCER SCREENING HISTORY: HX OF TOBACCO USE TECHNIQUE: Axial imaging performed from the apices to 1 cm below the costophrenic angles. Coronal and sagittal reformats are submitted with axial MIP series. All CT scans at [facility] use at least one of these dose optimization techniques: automated exposure control; mA and/or kV adjustment per patient size (includes targeted exams where dose is matched to clinical indication); or iterativ e reconstruction. DLP: 68.17 mGy.cm DIvol: Mean CTDIvol: 1.20 (mGy) COMPARISON: None available. Diagnostic quality: Satisfactory Lungs: Noncalcified 5 mm RIGHT lower lobe pulmonary nodule, image 158 of series 4. There are a few ad ditional scattered benign granuloma which are calcified. No mass or pneumonia. No endobronchial lesio ns. Heart: Normal size heart with no pericardial effusion.. Other findings: Mild atherosclerosis thoracic aorta. No mediastinal or hilar adenopathy. No adrenal m ass. 2.3 cm low-attenuation mass in the superior pole the LEFT kidney. Cyst was previously described in this location on 12/10/2019. Degenerative disc disease and small osteophytes throughout the thoracic spine. IMPRESSION: CT/CT lung screening [id number] LUNG-RADS: 2-Benign Appearance or Behavior FOLLOW UP: 12 Month: Continue annual screening with LDCT OTHER FINDINGS (S MODIFIER): None.
== END 2023-04-19 08:06 | disposition home or self-care (01) ==
PROVIDERS: PCP Family Medicine; Visit Provider Family Medicine
DX: Z12.2 Encounter for screening for malignant neoplasm of respiratory organs (principal); Z87.891 Personal history of nicotine dependence
CPT/HCPCS: 71271

== ENCOUNTER 2023-07-28 17:21 | Inpatient (IN) | payer MEDICARE, SELFPAY ==
[2023-07-28] VITALS (9 sets, daily range): BP systolic 131–176; BP diastolic 66–109; PULSE 74–87; RESP 17–25; TEMP 36.9–37.4; O2SAT 92–95; BMI 25.7
--- NOTE | 2023-07-28 17:41 | ECG_ITS ---
[facility] Test Date: 2023-07-28 Pat Name: Lele Chowdhury Department: Room: Gender: Male Intensive Care Medicine Specialist: : [id number] Requested By: Sanjeev Leblanc Order Number: [id number] Rodrigue MD: Tavon Nova M.D. Measurements Intervals [place] Rate: 78 P: 46 ID: [id number] QRS: 42 QRSD: 92 T: 16 QT: 323 QTc: 368 Interpretive Statements SINUS RHYTHM Compared to ECG 12/10/2019 18:43:24 T-wave abnormality no longer present Electronically Signed On 07-29-2023 8:31:01 MILL OPERATOR by Tavon Nova M.D. [id number]
--- NOTE | 2023-07-28 17:44 | XRR_ITS ---
PROCEDURE INFORMATION: Exam: XR Chest Exam date and time: 07/28/2023 6:02 PM Age: 68 years old Clinical indication: Shortness of breath; Chest pressure; Patient HX: C/O chest pain with SOB. History of colon cancer. TECHNIQUE: Imaging protocol: Radiologic exam of the chest. Views: 1 view. COMPARISON: CT lung screening [id number] 04/19/2023 8:51 AM FINDINGS: Lungs: There is scarring and or atelectasis at the right lung base. Pleural spaces: Unremarkable. No pleural effusion. No pneumothorax. Heart/Mediastinum: Heart size not optimally evaluated with a single AP view of the chest. Diaphragm: Mild elevation of the right hemidiaphragm. Bones/joints: Unremarkable. XR/XR chest 1V portable [id number] IMPRESSION: No evidence for acute cardiopulmonary disease.
[2023-07-28 18:04] LABS: Basophils # 0.1 10^3/uL (0.0-0.1); Basophils % 0.4 %; Eosinophils # 0.1 10^3/uL (0.0-0.8); Eosinophils % 0.9 %; Hematocrit 47.7 % (37-53); Lymphocytes # 2.6 10^3/uL (0.8-4.8); Lymphocytes % 18.5 %; Mean Corpuscular HGB Conc 33.8 g/dL (30-55); Mean Corpuscular Hemoglobin 31.8 pg (27-33); Mean Corpuscular Volume 94.3 fl (82-101); Mean Platelet Volume 8.8 fL (7.4-10.4); Monocytes # 1.1 10^3/uL (0.2-0.9); Monocytes % 8.2 %; Neutrophils # 9.91 10^3/uL (1.8-7.7); Neutrophils % 71.6 %; Nucleated Red Blood Cells % 0 %; Platelet Count 255 10^3/cmm (157-399); Red Blood Count 5.06 10^6/uL (3.85-5.65); Red Cell Distribution Width 12.4 % (12.1-15.1); White Blood Count 13.86 10^3/uL (3.29-11.43)
--- NOTE | 2023-07-28 18:10 | ED_ITS ---
HPI - Chest Pain 2 General: Chief Complaint: Chest Pain Stated Complaint: Chest Pains Time Seen by Provider: 07/28/23 17:44 Source: patient Mode of arrival: ambulatory Limitations: no limitations History of Present Illness: 68-year-old male states he had right-ulisses ed chest pain over the last 6 hours states pain is very sharp in nature he is having some shortness of breath states pain is much worse with palpation along with deep inspiration. He denies any fevers denies any cough rates the pain an 8 out of 10 currently. Associated symptoms: Deny abdominal pain, dyspnea, fever(s), nausea or vomiting Review of Systems 2 Const: Denies: fever(s), chills, body aches or change in appetite ENMT: Denies: throat pain or dental pain Card: Reports: chest pain Resp: Denies: dyspnea GI: Denies: abdominal pain, nausea, vomiting or diarrhea : Denies: dysuria Musc: Denies: neck pain or back pain Skin/Breast: Denies: rash Neuro: Denies: headache(s) PFSH ED 2 PFSH: Medical History (Updated 07/28/23 @ 19:34 by Joseph Baltazar MD) Colon cancer Colon polyps Surgical History S/P appendectomy H/O right hemicolectomy Social History Smoking and tobacco/nicotine status: current every day tobacco/nicotine user Physical Exam 2 Const: COMMON NORMALS: no acute distress, patient oriented x3 and healthy appearing HENMT: COMMON NORMALS: normocephalic and atraumatic HEAD & SCALP: n ormocephalic and atraumatic Neck/C-Spine: COMMON NORMALS: full ROM and supple Chest: COMMONS NORMALS: normal inspection of the chest OTHER: point tender over right chest Resp: COMMON NORMALS: normal respiratory effort, No retractions, No use of accessory muscles and clear to auscultation bilaterally AUSCULTATION: clear to auscultation bilaterally Cardio: COMMON NORMALS: regular rate, regular rhythm and No murmurs present (Cardio) RATE: regular rate RHYTHM: regular rhythm GI: COMMON NORMALS: Normal to inspection, nondistended, normoactive bowel sounds present, Soft to palpation, non-tender and no masses PALPATION: Yes Soft to palpation Extremity: COMMON NORMALS: normal to inspection and full ROM Neuro: COMMON NORMALS: patient oriented x3, moves all extremities and no focal motor deficits Psych: COMMON NORMALS: mental status grossly normal, Normal thought process present and cooperative THOUGHT PROCESS: Normal thought process present Skin: COMMON NORMALS: no rashes or lesions noted and no wounds GENERAL SKIN EXAM: no rashes or lesions noted Course 2 Vital Signs: Vital signs: Vital Signs Temperature 98.4 F 07/28/23 17:26 Pulse Rate 77 07/28/23 19:30 Respiratory Rate 22 H 07/28/23 19:30 Blood Pressure 142/88 07/28/23 19:30 Pulse Oximetry 94 07/28/23 19:30 Oxygen Delivery Me thod Nasal Cannula 07/28/23 19:30 Oxygen Flow Rate 3 07/28/23 19:30 MDM - Chest Pain Medical Decision Making Patient presents here with chest pain along with shortness of breath he was found to have a pulmonary embolism. X-ray shows possible pneumonia as well we will start Lovenox along with antibiotic spoke to hospitalist will admit. Medical Records I reviewed the patient's medical records. Lab Data I reviewed the patient's lab results. 07/28/23 17:51 07/28/23 17:51 Radiology Impressions Chest X-Ray 07/28/23 17:44 IMPRESSION: No evidence for acute cardiopulmonary disease. Chest CTA 07/28/23 18:20 IMPRESSION: 1. Multiple bilateral pulmonary emboli. 2. Streaky densities at the lung bases, right greater than left, may represent prominent atelectatic change or pneumonia. Small right pleural effusion. 3. There are ground-glass opacities at the right lung base. These are nonspecific and can be seen with pulmonary edema, atelectasis, pneumonitis, and or pneumonia. 4. There is fluid in the esophagus consistent with difficulty swallowing and/or reflux. ADDENDUM: 07/28/231913 CRITICAL RESULT: The study was personally discussed on the telephone with JOSEPH Sun on 07/28/2023 7:12 PM TAX COMPLIANCE MANAGER. The results were understood and acknowledged. Laboratory Results WBC 13.86 10^3/uL (3.29-11.43) H 07/28/23 17:51 RBC 5.06 10^6/uL (3.85-5.65) 07/28/23 17:51 Hgb 16.10 g/dL (11.27-16.99) 07/28/23 17:51 Hct 47.7 % (37-53) 07/28/23 17:51 MCV 94.3 fl (82-101) 07/28/23 17:51 MCH 31.8 pg (27-33) 07/28/23 17:51 MCHC 33.8 g/dL (30-55) 07/28/23 17:51 RDW 12.4 % (12.1-15.1) 07/28/23 17:51 Plt Count 255 10^3/cmm (157-399) 07/28/23 17:51 MPV 8.8 fL (7.4-10.4) 07/28/23 17:51 Neut % (Auto) 71.6 % 07/28/23 17:51 Lymph % (Auto) 18.5 % 07/28/23 17:51 [place] % (Auto) 8.2 % 07/28/23 17:51 Eos % (Auto) 0.9 % 07/28/23 17:51 Baso % (Auto) 0.4 % 07/28/23 17:51 Neut # (Auto) 9.91 10^3/uL (1.8-7.7) H 07/28/23 17:51 Lymph # (Auto) 2.6 10^3/uL (0.8-4.8) 07/28/23 17:51 [place] # (Auto) 1.1 10^3/uL (0.2-0.9) H 07/28/23 17:51 Eos # (Auto) 0.1 10^3/uL (0.0-0.8) 07/28/23 17:51 Baso # (Auto) 0.1 10^3/uL (0.0-0.1) 07/28/23 17:51 Nucleated RBC % (auto) 0 % 07/28/23 17:51 Nucleated RBCs # 0.0 /100WBC 07/28/23 17:51 D-Dimer 3.70 ug/mLFEU (0-0.59) H 07/28/23 17:51 Sodium 139 mmol/L (136-145) 07/28/23 17:51 Potassium 4.1 mmol/L (3.5-5.1) 07/28/23 17:51 Chloride 101 mmol/L (98-107) 07/28/23 17:51 Carbon Dioxide 26 mmol/L (22-29) 07/28/23 17:51 Anion Gap 16.1 (5-19) 07/28/23 17:51 BUN 15 mg/dL (8-23) 07/28/23 17:51 Creatinine 0.8 mg/dL (0.7-1.2) 07/28/23 17:51 GFR Calculation 96.4 mL/min (90-130) 07/28/23 17:51 Glucose 118 mg/dL (65-115) H 07/28/23 17:51 Calculated Osmolality 290 mOsm/kg (285-295) 07/28/23 17:51 Calcium 9.0 mg/dL (8.5-10.5) 07/28/23 17:51 Total Bilirubin 0.3 mg/dL (0.15-1.2) 07/28/23 17:51 AST 12 U/L (0-40) 07/28/23 17:51 ALT 24 U/L (0-41) 07/28/23 17:51 Alkaline Phosphatase 130 U/L (40-130) 07/28/23 17:51 Troponin T Baseline < 6 ng/L (0-15) 07/28/23 17:51 Total Protein 7.3 g/dL (6.6-8.7) 07/28/23 17:51 Albumin 4.0 g/dL (3.5-5.2) 07/28/23 17:51 Globulin 3.3 g/dL (1.3-4.6) 07/28/23 17:51 All radiology interpretation(s) finalized by discharge EKG Data EKG 1: I personally reviewed and interpreted this EKG as follows: EKG interpretation date: 07/28/23 EKG interpretation time: 17:41 Interpretation: nsr hr [address] or t wave abnormalities qrs 92 qtc 356 Discharge Plan Discharge Patient Disposition: Admitted As Inpatient Clinical Impression: Pulmonary embolism Condition: Stable Prescriptions: No Action potassium gluconate 595 mg (99 mg) Tablet 1,190 - 1,785 mg PO PRN Cipro 500 mg tablet 500 mg PO BID Qty: 20 0RF promethazine 25 mg tablet 25 mg PO Q4H PRN (Reason: nausea and vomiting) Qty: 20 0RF Referrals: Winston Pal MD [Primary Care Provider] - Coding Level of Care Code ED Product Examiner for Hiteshg Paty
[2023-07-28] MEDS: ondansetron 2 mg/ML SDV 2 mL 4 MG IVP (18:15)
[2023-07-28] MEDS: HYDROmorphone 1 mg/mL INJ 1 mL IVP ×2 (18:15→21:13)
--- NOTE | 2023-07-28 18:20 | CTR_ITS ---
PROCEDURE INFORMATION: Exam: CTA Chest With Contrast Exam date and time: 07/28/2023 6:29 PM Age: 68 years old Clinical indication: Elevated d-dimer; Shortness of breath; Chest pressure; Dimer 3.70. Hernia surgery two weeks ago. History of colon cancer. TECHNIQUE: Imaging protocol: Computed tomographic angiography of the chest with contrast. Exam focused on the arteries. 3D rendering (Not supervised by radiologist): MIP and/or 3D reconstructed images were created by the technologist. Radiation optimization: All CT scans at this facility use at least one of these dose optimization techniques: automated exposure control; mA and/or kV adjustment per patient size (includes targeted exams where dose is matched to clinical indication); or iterative reconstruction. Contrast material: OMNI 350; Contrast volume: 69 ml; Contrast route: INTRAVENOUS (IV); COMPARISON: CT lung screening [id number] 04/19/2023 8:51 AM RADIATION DOSE METRICS: Total DLP (mGy-cm): 355.28 FINDINGS: Pulmonary arteries: Multiple bilateral pulmonary emboli involving the bilateral upper/lower lobes and right middle lobe. This includes a nonocclusive saddle embolus at the distal aspect of the left main pulmonary artery extending into the 1st order branches. Aorta: Unremarkable. No aortic aneurysm. No aortic dissection. Lungs: Streaky densities at the lung bases, right greater than left, may represent prominent atelectatic change or pneumonia. Small right pleural effusion. There are ground-glass opacities at the right lung base. Pleural spaces: See Lungs finding. Heart: Unremarkable. No cardiomegaly. No pericardial effusion. Heart RV/LV ratio: Normal RV/LV ratio of less than 1. Mediastinal space: There is fluid in the esophagus consistent with difficulty swallowing and/or reflux. Lymph nodes: Unremarkable. No enlarged lymph nodes. Diaphragm: Small hiatal hernia. Bones/joints: Unremarkable. No acute fracture. Soft tissues: Unremarkable. CT/CT angio chest PE protcl [id number] IMPRESSION: 1. Multiple bilateral pulmonary emboli. 2. Streaky densities at the lung bases, right greater than left, may represent prominent atelectatic change or pneumonia. Small right pleural effusion. 3. There are ground-glass opacities at the right lung base. These are nonspecific and can be seen with pulmonary edema, atelectasis, pneumonitis, and or pneumonia. 4. There is fluid in the esophagus consistent with difficulty swallowing and/or reflux.
[2023-07-28 18:21] LABS: Alanine Aminotransferase 24 U/L (0-41); Alkaline Phosphatase 130 U/L (40-130); Anion Gap 16.1 (5-19); Aspartate Amino Transferase 12 U/L (0-40); Blood Urea Nitrogen 15 mg/dL (8-23); Carbon Dioxide 26 mmol/L (22-29); Chloride 101 mmol/L (98-107); Creatinine Clr Calc Pharmacy 91.7027; Globulin 3.3 g/dL (1.3-4.6); Glomerular Filtration Rate 96.4 mL/min (90-130); Glucose 118 mg/dL (65-115); Osmolality Calculated 290 mOsm/kg (285-295); Potassium 4.1 mmol/L (3.5-5.1); Sodium 139 mmol/L (136-145); Total Bilirubin 0.3 mg/dL (0.15-1.2); Total Protein 7.3 g/dL (6.6-8.7)
[2023-07-28 18:24] LABS: Troponin(5th) Baseline < 6 ng/L (0-15)
[2023-07-28] MEDS: iohexol 350 mg/mL 500 mL Btl (per mL) IV (18:30)
[2023-07-28] MEDS: cefTRIAXone 1,000 MG in sodium chloride 0.9% (plus) 50 ML 100 MG IV (19:38)
[2023-07-28 19:40] LABS: NT Pro B Type Natriuretic Pept < 36 pg/mL (0-125)
--- NOTE | 2023-07-28 19:44 | ECG_ITS ---
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 Measurements Intervals [place] Rate: 76 P: 34 MI: 173 QRS: 40 QRSD: 89 T: 4 QT: 332 QTc: 374 Interpretive Statements SINUS RHYTHM Compared to ECG 07/28/2023 17:41:51 No significant changes Electronically Signed On 07-29-2023 8:37:32 FOUNDER / CEO by Tavon Nova M.D. [id number]
[2023-07-28] MEDS: enoxaparin 80 mg/0.8 mL Syringe 70 MG SUBCUT (19:46)
--- NOTE | 2023-07-28 19:54 | CTR_ITS ---
PROCEDURE INFORMATION: Exam: CT Abdomen And Pelvis Without Contrast Exam date and time: 07/28/2023 8:07 PM Age: 68 years old Clinical indication: Other: Swelling of incision site; Prior surgery; Surgery date: <1 month; Surgery type: Hernia repair two weeks ago. RT hemicolectomy. Appy; Patient HX: Localized swelling to incision site from hernia repair two weeks ago. History of colon cancer. ; Additional info: Abdominal incsion hernia repair, now with fluid collection a TECHNIQUE: Imaging protocol: Computed tomography of the abdomen and pelvis without contrast. Radiation optimization: All CT scans at this facility use at least one of these dose optimization techniques: automated exposure control; mA and/or kV adjustment per patient size (includes targeted exams where dose is matched to clinical indication); or iterative reconstruction. COMPARISON: CT abdomen pelvis w con* [id number] 12/10/2019 6:48 PM RADIATION DOSE METRICS: Total DLP (mGy-cm): 568.15 FINDINGS: Lungs: There is consolidation at the posterior aspects of the lung bases consistent with atelectasis and or pneumonia. Liver: Normal. No mass. Gallbladder and bile ducts: Normal. No calcified stones. No ductal dilation. Pancreas: Normal. No ductal dilation. Spleen: Normal. No splenomegaly. Adrenal glands: Normal. No mass. Kidneys and ureters: Bilateral renal cysts with benign features the larger of which measures 3.7 cm off the lateral aspect of the right kidney. Follow-up is not necessary. There is contrast in the renal pelves. There is contrast in the ureters. Stomach and bowel: Unremarkable. No obstruction. No mucosal thickening. Appendix: No evidence of appendicitis. Intraperitoneal space: Unremarkable. No free air. No significant fluid collection. Vasculature: Unremarkable. No abdominal aortic aneurysm. Lymph nodes: Unremarkable. No enlarged lymph nodes. Urinary bladder: Contrast is present in the bladder. Reproductive: Prostate gland indents the base of the bladder consistent with median lobe enlargement. Bones/joints: There are degenerative changes in the visualized spine. Lower lumbar broad-based disc osteophyte complexes. Soft tissues: Ventral hernia repair changes. There is a fluid collection with some internal complexity in the overlying subcutaneous soft tissues measuring 6.7 x 3.1 cm in the transverse/AP dimensions. Adjacent soft tissue edema is present. CT/CT abdomen pelvis wo con [id number] IMPRESSION: 1. There is a fluid collection with internal complexity adjacent to the ventral abdominal hernia repair changes. Differential includes abscess and complex postoperative seroma. 2. Prostate gland indents the base of the bladder consistent with median lobe enlargement. 3. There is consolidation at the posterior aspects of the lung bases consistent with atelectasis and or pneumonia.
[2023-07-28] MEDS: azithromycin 500 MG in sodium chloride 0.9% 250 ML 250 MG IV (20:04)
[2023-07-28 20:52] LABS: Troponin 5 2HR 6.09 ng/L (0-15); Troponin 5 2HR Delta 0.09001 ABS# (0-10)
[2023-07-28 20:53] LABS: Erythrocyte Sedimentation Rate 11 mm/hr (0-10)
--- NOTE | 2023-07-28 20:58 | PC.NURSE ---
writer technical publications gave report to patrick mccabe at 2058. pt stable with no current complaints or concerns
[2023-07-28 21:04] LABS: C Reactive Protein 28.4 mg/L (0.0-4.9)
[2023-07-28 21:12] LABS: Procalcitonin 0.08 ng/mL (0-0.5)
--- NOTE | 2023-07-28 21:14 | P.HP_ITS ---
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 Moss with EGD and colonoscopy, who presents [facility] due to right chest pain, with pleurisy, with shortness of breath. Patient tells me that about 2 weeks ago he had a EGD and colonoscopy, and incisional hernia repair, he has less mobile from after the surgery, no calf pain, calf swelling, hemoptysis, he followed up with Dr. Love, had a postoperative seroma that Dr. Moss was monitoring, he is having adequate bowel movements, no bloody or black stools no nausea or vomiting, today he started to experience right-sided chest pain with right-sided pleurisy, with shortness of breath, no cardiovascular history, no fevers, does have a cough, no known history of flu or COVID Review of Systems 2 Const: Denies: fever(s) Card: Reports: chest pain Resp: Reports: dyspnea Medications/Allergies Home Medications Medication Instructions Recorded Confirmed Last Taken Type ciprofloxacin HCl 500 mg tablet 500 mg PO BID #20 tabs 12/10/19 09/14/21 Unknown Rx (Cipro) potassium gluconate 595 mg (99 mg) 1,190 - 1,785 mg PO PRN 12/10/19 09/14/21 12/10/19 14:30 History tablet promethazine 25 mg tablet 25 mg PO Q4H PRN nausea and 12/10/19 09/14/21 Unknown Rx vomiting #20 tabs Allergies Allergy/AdvReac Type Severity Reaction Status Date / Time morphine Allergy Unknown Verified 07/28/23 17:32 PFSH Acute 2 PFSH: Medical History (Updated 07/28/23 @ 21:18 by Stuart Art MD) Colon cancer Colon polyps Surgical History S/P appendectomy H/O right hemicolectomy Social History Smoking and tobacco/nicotine status: current every day tobacco/nicotine user Vitals/I&O/Wt Last Vital Signs Temp 98.4 F 07/28/23 17:26 Pulse 81 07/28/23 20:29 Resp 18 07/28/23 20:29 BP 147/83 07/28/23 20:29 Pulse Ox 92 07/28/23 20:29 O2 Del Method Nasal Cannula 07/28/23 20:29 O2 Flow Rate 3 07/28/23 20:29 07/28/23 07/28/23 07/28/23 06:59 14:59 22:59 Intake Total 50 / 50 Balance 50 / 50 Weight last 48 hrs Weight 74.843 kg Physical Exam 2 Const: COMMON NORMALS: no acute distress and patient oriented x3 HENMT: COMMON NORMALS: normocephalic HEAD & SCALP: normocephalic Eye: COMMON NORMALS: Equal, round and reactive pupils present Neck/C-Spine: COMMON NORMALS: no JVD Lymph: LYMPHATIC: no lymphadenopathy noted Resp: COMMON NORMALS: normal respiratory effort, No retractions, No use of accessory muscles and clear to auscultation bilaterally AUSCULTATION: clear to auscultation bilaterally Cardio: COMMON NORMALS: no JVD, regular rate, regular rhythm, S1 normal heart sound present and S2 normal heart sound present RATE: regular rate RHYTHM: regular rhythm HEART SOUNDS: S1 normal heart sound present and S2 normal heart sound present GI: COMMON NORMALS: Normal to inspection, nondistended, normoactive bowel sounds present, Soft to palpation and non-tender OTHER: Incisional hernia site, abdominal mass/density, measuring 5 x 5 cm, slight warmth, slight erythema, no significant tenderness : COMMON NORMALS: Yes no CVA tenderness Extremity: COMMON NORMALS: no calf tenderness and no pedal edema Neuro: COMMON NORMALS: patient oriented x3, CN's II-XII intact bilaterally, moves all extremities and no focal motor deficits Psych: COMMON NORMALS: mental status grossly normal Data 07/28/23 17:51 07/28/23 17:51 A&P Assessment and plan (1) Acute hypoxic respiratory failure: (2) Pulmonary embolism: Qualifiers: Acute cor pulmonale presence: without acute cor pulmonale Chronicity: a cute Pulmonary embolism type: unspecified Qualified Code(s): I26.99 - Other pulmonary embolism without acute cor pulmonale (3) Pleurisy: (4) Pneumonia: (5) Postoperative seroma: Plan Acute hypoxic respiratory failure ? Likely secondary to multiple bilateral PEs ? Secondary to pneumonia -cT angiogram 1. Multiple bilateral pulmonary emboli. 2. Streaky densities at the lung bases, right greater than left, may represent prominent atelectatic change or pneumonia. Small right pleural effusion. 3. There are ground-glass opacities at the right lung base. These are nonspecific and can be seen with pulmonary edema, atelectasis, pneumonitis, and or pneumonia. 4. There is fluid in the esophagus consistent with difficulty swallowing and/or reflux. Plan ? Therapeutic Lovenox, ? Venous ultrasound, cardiac echo, ? Serial EKGs, serial troponins, telemetry monitoring ? Rocephin, azithromycin -DuoNeb as needed -Full code -Lovenox for DVT prophylaxis Pleurisy -Likely secondary to bilateral pulmonary emboli -Solu-Medrol, followed by prednisone Postoperative seroma -Concerns for postoperative abscess Soft tissues: Ventral hernia repair changes. There is a fluid collection with some internal complexity in the overlying subcutaneous soft tissues measuring 6.7 x 3.1 cm in the transverse/AP dimensions. Adjacent soft tissue edema is present. Plan -CRP, sed rate, Pro-Maroc Antonio -General surgery consulted -Continue to monitor Attestations 2 Medical Necessity Statement*: Patient requires hospitalization, inpatient, greater than 2 midnights, for acute hypoxic respiratory failure, bilateral PEs, postoperative pneumonia, postop seroma, pleurisy, chest pain Diagnoses Acute hypoxic respiratory failure J96.01 Pulmonary embolism I26.99 Acute cor pulmonale presence: without acute cor pulmonale Chronicity: acute Pulmonary embolism type: unspecified Pleurisy R09.1 Pneumonia J18.9 Postoperative seroma
[2023-07-28 21:24] LABS: INR 0.93 (0.8-1.2)
[2023-07-28 21:31] LABS: Lactic Sepsis W/Reflex 1.7 mmol/L (0.5-2.2)
[2023-07-28 22:04] LABS: Estmated Average Glucose 111; Hemoglobin A1C 5.5 % (4.0-6.0)
[2023-07-28 22:13] LABS: Thyroid Stimulating Hormone 3.08 uIU/mL (0.27-4.20)
[2023-07-28] MEDS: pantoprazole 40 mg SDV IVP (22:22)
[2023-07-28] MEDS: methylPREDNISolone sod succ 125 mg/2 mL INJ IVP (22:27)
--- NOTE | 2023-07-28 23:44 | ECG_ITS ---
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 Measurements Intervals [place] Rate: 72 P: 21 WI: 179 QRS: 29 QRSD: 101 T: 78 QT: 345 QTc: 379 Interpretive Statements SINUS RHYTHM NONSPECIFIC T-WAVE ABNORMALITY Compared to ECG 07/28/2023 19:55:22 T-wave abnormality now present Electronically Signed On 07-29-2023 8:38:17 SENIOR PROGRAM PLANNER by Tavon Nova M.D. [id number]
[2023-07-29] VITALS (11 sets, daily range): BP systolic 123–144; BP diastolic 62–77; PULSE 68–84; RESP 14–18; TEMP 36.6–37.5; O2SAT 91–98
[2023-07-29 00:25] LABS: Troponin 5 6HR 7.59 ng/L (0-15)
[2023-07-29 04:19] LABS: Adenovirus Not Detected (NOT DETECT); Chlamydia Pneumoniae Not Detected (NOT DETECT); Coronavirus 229E,HKU1,NL63,OC4 Not Detected (NOT DETECT); Human Metapneumovirus Not Detected (NOT DETECT); Human Rhinovirus/Enterovirus Not Detected (NOT DETECT); Influenza A Not Detected (NOT DETECT); Influenza A H1 Not Detected (NOT DETECT); Influenza A H1-2009 Not Detected (NOT DETECT); Influenza A H3 Not Detected (NOT DETECT); Influenza B Not Detected (NOT DETECT); Mycoplasma Pneumoniae Not Detected (NOT DETECT); Parainfluenza Virus Type 1 Not Detected (NOT DETECT); Parainfluenza Virus Type 2 Not Detected (NOT DETECT); Parainfluenza Virus Type 3 Not Detected (NOT DETECT); Parainfluenza Virus Type 4 Not Detected (NOT DETECT); Respiratory Syncytial Virus A Not Detected (NOT DETECT); Respiratory Syncytial Virus B Not Detected (NOT DETECT); SARS-COV-2 Not Detected (NOT DETECT)
--- NOTE | 2023-07-29 06:00 | USCV_ITS ---
Lele Chowdhury Age: 68 Gender: M : 1955 Exam Date: 07/29/2023 09:07 Ordering Phys: Stuart Art MD Technologist: Thien Dang [place]am Location[place] [facility] [place]ication: sob BP: 124 / 71 HR: 76 Rhythm: Sinus Technical Quality: Suboptimal MEASUREMENTS (Male / Female) Normal Values 2D ECHO LVOT Diameter 2.0 cm LV Ejection Fraction MOD 2C 71.5 % LV Ejection Fraction 2C AL 73.6 % LA Diameter 4.0 cm LA Width 3.5 cm LA Height 4.7 cm RA Width 3.9 cm RA Height 4.3 cm Aorta at Sinotubular Diameter 2.4 cm IVC Diameter 1.8 cm M-MODE Aortic Annulus Diameter 3.0 cm LA Ao Ratio MM 1.5 MV E Point Septal Separation 0.4 cm DOPPLER AV Peak Velocity 161.7 cm/s LVOT Peak Velocity 114.0 cm/s AV Area Cont Eq vti 2.1 cm squared AV Area Cont Eq pk 2.2 cm squared MV Peak Velocity 85.0 cm/s MV Area PHT 3.1 cm squared Mitral E to A Ratio 0.9 MV E' Velocity 44.0 cm/s Mitral E to MV E' Ratio 7.9 Mitral E to LV E' Lateral Ratio 6.5 Mitral E to LV E' Septal Ratio 10.1 TR Peak Velocity 124.9 cm/s TR Peak Gradient 6.2 mmHg TR Mean Velocity 81.8 cm/s TR Mean Gradient 3.0 mmHg TR Velocity Time Integral 19.8 cm Right Atrial Pressure 3.0 mmHg Pulmonary Artery Systolic Pressu 9.2 mmHg PV Peak Velocity 174.7 cm/s RV Acceleration Time 0.1 s RV Ejection Time 0.2 s RV AcT/ET 0.6 FINDINGS Left Ventricle Normal left ventricular size, systolic function and wall thickness, with no regional wall motion abnormalities. Grade I/IV diastolic dysfunction (abnormal relaxation filling pattern), normal to mildly elevated filling pressures. Left ventricular ejection fraction is estimated at 60 %. Right Ventricle Normal right ventricular size and systolic function. Normal right ventricular systolic pressure. Right Atrium The right atrium is normal in size. Left Atrium The left atrium is normal in size. Mitral Valve Structurally normal mitral valve without significant stenosis or prolapse. There is no mitral regurgitation. Aortic Valve Structurally normal aortic valve without significant sclerosis or stenosis. There is no aortic regurgitation. Tricuspid Valve Structurally normal tricuspid valve without significant stenosis or regurgitation. Pulmonary artery systolic pressure is normal. Pulmonic Valve Pulmonic valve not well visualized. Pericardium Normal pericardium without effusion. Aorta Normal ascending aorta dimension. IVC The inferior vena cava appears normal. CONCLUSIONS Normal left ventricular size, systolic function and wall thickness, with no regional wall motion abnormalities. Grade I/IV diastolic dysfunction (abnormal relaxation filling pattern), normal to mildly elevated filling pressures. Left ventricular ejection fraction is estimated at 60 %. There are no prior echocardiogram studies to compare. Dr. Tavon Nova MD (Electronically Signed) Final Date: 30 July 2023 07:01 S
--- NOTE | 2023-07-29 06:00 | USR_ITS ---
PROCEDURE INFORMATION: Exam: US Duplex Lower Extremity Veins, Bilateral Exam date and time: 07/29/2023 8:48 AM Age: 68 years old Clinical indication: Condition or disease; Other: Pe TECHNIQUE: Imaging protocol: Real-time duplex ultrasound of the bilateral extremities with 2-D johnson scale, color Doppler flow and spectral waveform analysis including responses to compression and other maneuvers (when performed) with image documentation. Complete exam focused on the lower extremity veins. COMPARISON: CT abdomen pelvis wo con [id number] 07/28/2023 8:07 PM FINDINGS: Right deep veins: Unremarkable. The common femoral, femoral, proximal profunda femoral and popliteal veins are patent without thrombus. Normal Doppler waveforms. Normal compressibility and/or augmentation response. Left deep veins: Unremarkable. The common femoral, femoral, proximal profunda femoral and popliteal veins are patent without thrombus. Normal Doppler waveforms. Normal compressibility and/or augmentation response. Superficial veins: Bilateral saphenofemoral junctions are patent without thrombus. Soft tissues: Unremarkable. US/CV venous duplex [facility] [id number] IMPRESSION: No evidence of deep vein thrombosis in either lower extremity..
[2023-07-29] MEDS: enoxaparin 80 mg/0.8 mL Syringe SUBCUT (06:36)
[2023-07-29 06:39] LABS: Basophils % 0.1 %; Eosinophils % 0.3 %; Hematocrit 43.8 % (37-53); Lymphocytes # 0.8 10^3/uL (0.8-4.8); Lymphocytes % 5.7 %; Mean Corpuscular HGB Conc 33.3 g/dL (30-55); Mean Corpuscular Hemoglobin 31.8 pg (27-33); Mean Corpuscular Volume 95.4 fl (82-101); Monocytes # 0.2 10^3/uL (0.2-0.9); Monocytes % 1.6 %; Neutrophils # 13.06 10^3/uL (1.8-7.7); Neutrophils % 91.7 %; Nucleated Red Blood Cells % 0 %; Platelet Count 208 10^3/cmm (157-399); Red Blood Count 4.59 10^6/uL (3.85-5.65); Red Cell Distribution Width 12.4 % (12.1-15.1); White Blood Count 14.23 10^3/uL (3.29-11.43)
[2023-07-29 07:08] LABS: Anion Gap 15.3 (5-19); Blood Urea Nitrogen 13 mg/dL (8-23); Calcium 8.8 mg/dL (8.5-10.5); Carbon Dioxide 22 mmol/L (22-29); Chloride 100 mmol/L (98-107); Glomerular Filtration Rate 112.5 mL/min (90-130); Glucose 149 mg/dL (65-115); Magnesium 2.2 mg/dL (1.7-2.3); Osmolality Calculated 279 mOsm/kg (285-295); Phosphorus 2.4 mg/dL (2.5-4.5); Potassium 4.3 mmol/L (3.5-5.1); Sodium 133 mmol/L (136-145)
--- NOTE | 2023-07-29 09:15 | PC.PHAR ---
pt and pts states the pt finished his amoxil 500mg take 1000mg po bid filled 07/12/23 14d/s and clarithromycin 500mg bid filled 07/12/23 14d/s states finished both on 07/26/23-
--- NOTE | 2023-07-29 10:31 | PM.PN ---
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 regarding his limitations regarding to his work considering now he will be using a blood thinner Vitals/I&O/Wt Last Vital Signs Temp 98.0 F 07/29/23 07:52 Pulse 74 07/29/23 07:52 Resp 14 07/29/23 07:52 BP 124/71 07/29/23 07:52 Pulse Ox 91 07/29/23 07:52 O2 Del Method Nasal Cannula 07/29/23 07:52 O2 Flow Rate 2 07/29/23 00:07 07/28/23 07/29/23 07/29/23 22:59 06:59 14:59 Intake Total 300 / 300 120 / 120 Output Total 50 / 50 400 / 450 Balance 250 / 250 -400 / -150 120 / 120 Weight last 48 hrs Weight 79.095 kg Weight 79.095 kg Weight 74.843 kg Physical Exam Narrative: Awake and alert Euvolemic currently on 1.5 L Nonfocal neuroexam Right-sided pleuritic pain S1, S2 Hemodynamically stable Data 07/29/23 05:52 07/29/23 05:52 A&P Assessment and plan (1) Pulmonary embolism: Qualifiers: Acute cor pulmonale presence: without acute cor pulmonale Chronicity: acute Pulmonary embolism type: unspecified Qualified Code(s): I26.99 - Other pulmonary embolism without acute cor pulmonale (2) H/O right hemicolectomy: (3) Colon cancer: (4) Acute hypoxic respiratory failure: (5) Pneumonia: (6) Pleurisy: (7) Postoperative seroma: Plan Patient will need Eliquis at the time of discharge Echo pending Pleuritic pain Will give him anti-inflammatory medication Pain likely related to pulmonary infarction Continue antibiotics for possible pneumonia Hemodynamically stable Postoperative seroma follows up with Dr. Moss outpatient Recently had EGD colonoscopy he finished 14-day treatment of H. pylori gastric ulcer, I did inform patient about side effect of Eliquis causing GI bleed Afebrile change antibiotics to Levaquin p.o. regimen Attestations Medical Necessity Statement*: Continue medical management Diagnoses Pulmonary embolism I26.99 Acute cor pulmonale presence: without acute cor pulmonale Chronicity: acute Pulmonary embolism type: unspecified H/O right hemicolectomy Z90.49 Colon cancer C18.9 Acute hypoxic respiratory failure J96.01 Pneumonia J18.9 Pleurisy R09.1 Postoperative seroma
--- NOTE | 2023-07-29 10:32 | P.CONIM_ITS ---
Providers/Reason For Consult 2 Consulting Physician/Specialty*: General surgery Reason for Consult*: Abdominal wall fluid collection Attending Physician: Christina Valle MD Primary Care Provider: Winston Pal MD History of Present Illness History of Present Illness Lele Chowdhury is a 68 year old male who is admitted to the hospital with bilateral PE. Patient had a recent open ventral hernia repair with mesh by an outside surgeon. He developed a small anterior abdominal wall seroma after surgery. She was admitted yesterday and due to persistent swelling on his abdominal wall a CT scan of the abdomen pelvis was done showing a fluid collection anterior abdomen and I was consulted for this finding. Patient does not have redness or pain on the abdomen, there is no sensation of hernia recurrence or discharge from the wound Review of Systems 2 General: Reports: 10 or more systems reviewed and unremarkable except in HPI and below Medications/Allergies Home Medications Medication Instructions Recorded Confirmed Last Taken Type hydrocodone 5 mg-acetaminophen 325 1 - 2 tab PO Q5H PRN Pain 07/29/23 07/29/23 Unknown History mg tablet potassium gluconate 595 mg (99 mg) 1,785 mg PO DAILY PRN Muscle Spasm 07/29/23 07/29/23 Unknown History tablet Allergies Allergy/AdvReac Type Severity Reaction Status Date / Time morphine Allergy Unknown Verified 07/28/23 17:32 Current Medications Generic Name Dose Route Start Last Admin Trade Name Freq PRN Reason Stop Dose Admin Enoxaparin Sodium 80 mg 07/29/23 07:00 07/29/23 06:36 Enoxaparin 80 Mg/0.8 Ml Syringe SUBCUT 80 mg 0700,1900 DORINA Administration Pantoprazole Sodium 40 mg 07/28/23 21:37 07/28/23 22:22 Pantoprazole 40 Mg Sdv IVP 40 mg Q24H DORINA Administration PFSH Acute 2 PFSH: Medical History (Updated 07/29/23 @ 10:32 by Christina Valle MD) Colon cancer Status post hemicolectomy, currently in remission Colon polyps Surgical History S/P appendectomy H/O right hemicolectomy Social History Smoking and tobacco/nicotine status: current every day tobacco/nicotine user Vitals/I&O/Wt Last Vital Signs Temp 98.0 F 07/29/23 07:52 Pulse 74 07/29/23 07:52 Resp 14 07/29/23 07:52 BP 124/71 07/29/23 07:52 Pulse Ox 91 07/29/23 07:52 O2 Del Method Nasal Cannula 07/29/23 07:52 O2 Flow Rate 2 07/29/23 00:07 07/28/23 07/29/23 07/29/23 22:59 06:59 14:59 Intake Total 300 / 300 120 / 120 Output Total 50 / 50 400 / 450 Balance 250 / 250 -400 / -150 120 / 120 Weight last 48 hrs Weight 174 lb 6 oz Weight 174 lb 6 oz Weight 165 lb Physical Exam 2 Narrative: General : Patient is well developed , no acute distress, oriented x3 Head : Normal cephalic, a-traumatic. Nose : Mucous membranes are without erythema. Lungs : Equal chest rise bilaterally, no use of accessory muscles, trachea is midline. CV : Rate and rhythm are normal. Abdomen : Abdomen is soft, nontender, nondistended, there is a 7 cm surgical incision in the periumbilical region. There is evidence of a subcutaneous seroma measuring about 7 cm. Extremities : No edema. Upper extremities are normal bilaterally. Back : non-tender to palpation, no CVA tenderness. Data 07/29/23 05:52 07/29/23 05:52 A&P Assessment and plan (1) Postoperative seroma: Plan Patient went clinical picture and CT scan of the abdomen pelvis are consistent with postoperative seroma. No surgical intervention is needed at this time. Patient can continue to monitor the fluid collection for the next 2 to 4 weeks to ensure resolution, he should follow-up with operating surgeon, if there is no resolution of the fluid collection the next step will be for needle drainage in an elective clinic setting. Patient is otherwise cleared from the general surgery standpoint, all other management per primary team. Coding Level of Care Code Acute Code for Chg Fwd Diagnoses Postoperative seroma
[2023-07-29] MEDS: pantoprazole 40 mg SDV IVP (20:14)
[2023-07-30] VITALS (7 sets, daily range): BP systolic 112–151; BP diastolic 60–78; PULSE 62–70; RESP 16–18; TEMP 36.6–37.2; O2SAT 93–96
[2023-07-30 04:48] LABS: Basophils % 0.1 %; Hematocrit 39.9 % (37-53); Lymphocytes # 1.7 10^3/uL (0.8-4.8); Lymphocytes % 8.8 %; Mean Corpuscular HGB Conc 33.8 g/dL (30-55); Mean Corpuscular Hemoglobin 31.5 pg (27-33); Mean Corpuscular Volume 93.2 fl (82-101); Mean Platelet Volume 9.2 fL (7.4-10.4); Monocytes # 1.3 10^3/uL (0.2-0.9); Monocytes % 6.8 %; Neutrophils # 16.49 10^3/uL (1.8-7.7); Neutrophils % 83.4 %; Nucleated Red Blood Cells % 0 %; Platelet Count 228 10^3/cmm (157-399); Red Blood Count 4.28 10^6/uL (3.85-5.65); Red Cell Distribution Width 12.2 % (12.1-15.1); White Blood Count 19.77 10^3/uL (3.29-11.43)
[2023-07-30] MEDS: enoxaparin 80 mg/0.8 mL Syringe SUBCUT (05:09)
[2023-07-30] MEDS: levoFLOXacin 750 mg Tablet PO (05:09)
[2023-07-30 05:21] LABS: Anion Gap 15.2 (5-19); Blood Urea Nitrogen 16 mg/dL (8-23); Calcium 8.7 mg/dL (8.5-10.5); Carbon Dioxide 23 mmol/L (22-29); Chloride 106 mmol/L (98-107); Glomerular Filtration Rate 112.5 mL/min (90-130); Glucose 113 mg/dL (65-115); Osmolality Calculated 292 mOsm/kg (285-295); Potassium 4.2 mmol/L (3.5-5.1); Sodium 140 mmol/L (136-145)
--- NOTE | 2023-07-30 11:04 | P.DS_ITS ---
Discharge Providers Date of Admission: 07/28/23 19:31 Date of Discharge: July 30, 2023 Attending Provider at Admission: Stuart Art MD Attending Provider at Discharge: Christina Valle MD Primary Care Provider: Winston Pal MD Diagnoses at Discharge Discharge Diagnosis (1) Postoperative seroma: Status: Acute (2) Colon cancer: Status: Acute Permanent problem details: Status post hemicolectomy, currently in remission (3) H/O right hemicolectomy: Status: Acute Reason for Visit Reason for Visit: Chest Pains Hospital Course Hospital Course 68-year-old male who carries history of colon cancer in the remote past status post hemicolectomy, had recent EGD colonoscopy was treated for 2 weeks for H. pylori gastric ulcer, patient was admitted for management evaluation of right- sided chest pain, he was diagnosed with pulmonary embolism bilateral nature with concern for pneumonia and mild pleural effusion, he remained afebrile, his leukocytosis did increase to 19,000 patient has received steroids which would explain neutrophilia leukocytosis, he is not spiking fever clinically he is doi ng much better he is hemodynamically stable, echo did not show right heart strain, I will discharge him on Eliquis 10 mg twice daily loading dose for 7 days then 5 mg twice daily, patient is a process of changing his primary care physician as well. I will give him a prescription to get his CBC checked within 3 to 4 days. I did convey my concerns regarding his high white count if he keeps getting worse he might need another CT scan to rule out parapneumonic effusion. I will give him 10 days of antibiotics, albuterol, Eliquis. Physical Exam Narrative: Pleasant cough Currently on room air Nonfocal neuroexam GCS 15 No active chest pain or shortness of breath is at the bedside Discharge Data Studies Completed and Pending Completed Studies During Hospitalization Category Date Time Status CT abdomen pelvis wo con [id number] Stat Cat Scan 07/28/23 19:54 Completed CTA chest [CT angio chest PE protcl [id number]] Stat Cat Scan 07/28/23 18:20 Completed XR chest 1V portable [id number] Stat Exams 07/28/23 17:44 [place] [id number] Routine Ultrasound 07/29/23 06:00 Completed CV. echo complete* [id number] Routine Ultrasound 07/29/23 06:00 Completed Pending at discharge Category Date Time Status Blood Cultures ([facility]) Routine Lab 07/28/23 20:17 Received Blood Cultures ([facility]) Routine Lab 07/28/23 20:25 Received Radiology Impressions Chest X-Ray 07/28/23 17:44 IMPRESSION: No evidence for acute cardiopulmonary disease. Chest CTA 07/28/23 18:20 IMPRESSION: 1. Multiple bilateral pulmonary emboli. 2. Streaky densities at the lung bases, right greater than left, may represent prominent atelectatic change or pneumonia. Small right pleural effusion. 3. There are ground-glass opacities at the right lung base. These are nonspecific and can be seen with pulmonary edema, atelectasis, pneumonitis, and or pneumonia. 4. There is fluid in the esophagus consistent with difficulty swallowing and/or reflux. ADDENDUM: 07/28/231913 CRITICAL RESULT: The study was personally discussed on the telephone with JOSEPH Sun on 07/28/2023 7:12 PM [employer]. The results were understood and acknowledged. Abdomen/Pelvis CT 07/28/23 19:54 IMPRESSION: 1. There is a fluid collection with internal complexity adjacent to the ventral abdominal hernia repair changes. Differential includes abscess and complex postoperative seroma. 2. Prostate gland indents the base of the bladder consistent with median lobe enlargement. 3. There is consolidation at the posterior aspects of the lung bases consistent with atelectasis and or pneumonia. Venous Duplex 07/29/23 06:00 IMPRESSION: No evidence of deep vein thrombosis in either lower extremity.. Laboratory Results WBC 19.77 10^3/uL (3.29-11.43) H 07/30/23 04:18 RBC 4.28 10^6/uL (3.85-5.65) 07/30/23 04:18 Hgb 13.50 g/dL (11.27-16.99) 07/30/23 04:18 Hct 39.9 % (37-53) 07/30/23 04:18 MCV 93.2 fl (82-101) 07/30/23 04:18 MCH 31.5 pg (27-33) 07/30/23 04:18 MCHC 33.8 g/dL (30-55) 07/30/23 04:18 RDW 12.2 % (12.1-15.1) 07/30/23 04:18 Plt Count 228 10^3/cmm (157-399) 07/30/23 04:18 MPV 9.2 fL (7.4-10.4) 07/30/23 04:18 Neut % (Auto) 83.4 % 07/30/23 04:18 Lymph % (Auto) 8.8 % 07/30/23 04:18 [place] % (Auto) 6.8 % 07/30/23 04:18 Eos % (Auto) 0.0 % 07/30/23 04:18 Baso % (Auto) 0.1 % 07/30/23 04:18 Neut # (Auto) 16.49 10^3/uL (1.8-7.7) H 07/30/23 04:18 Lymph # (Auto) 1.7 10^3/uL (0.8-4.8) 07/30/23 04:18 [place] # (Auto) 1.3 10^3/uL (0.2-0.9) H 07/30/23 04:18 Eos # (Auto) 0.0 10^3/uL (0.0-0.8) 07/30/23 04:18 Baso # (Auto) 0.0 10^3/uL (0.0-0.1) 07/30/23 04:18 Nucleated RBC % (auto) 0 % 07/30/23 04:18 Nucleated RBCs # 0.0 /100WBC 07/30/23 04:18 ESR 11 mm/hr (0-10) H 07/28/23 20:41 PT 12.80 SECONDS (12.1-14.9) 07/28/23 20:17 INR 0.93 (0.8-1.2) 07/28/23 20:17 D-Dimer 3.70 ug/mLFEU (0-0.59) H 07/28/23 17:51 Sodium 140 mmol/L (136-145) 07/30/23 04:18 Potassium 4.2 mmol/L (3.5-5.1) 07/30/23 04:18 Chloride 106 mmol/L (98-107) 07/30/23 04:18 Carbon Dioxide 23 mmol/L (22-29) 07/30/23 04:18 Anion Gap 15.2 (5-19) 07/30/23 04:18 BUN 16 mg/dL (8-23) 07/30/23 04:18 Creatinine 0.7 mg/dL (0.7-1.2) 07/30/23 04:18 GFR Calculation 112.5 mL/min (90-130) 07/30/23 04:18 Glucose 113 mg/dL (65-115) 07/30/23 04:18 Estimat Average Glucose 111 07/28/23 20:27 Hemoglobin A1c 5.5 % (4.0-6.0) 07/28/23 20:27 Calculated Osmolality 292 mOsm/kg (285-295) 07/30/23 04:18 Lactic Acid 1.7 mmol/L (0.5-2.2) 07/28/23 20:17 Calcium 8.7 mg/dL (8.5-10.5) 07/30/23 04:18 Phosphorus 2.4 mg/dL (2.5-4.5) L 07/29/23 05:52 Magnesium 2.2 mg/dL (1.7-2.3) 07/29/23 05:52 Total Bilirubin 0.3 mg/dL (0.15-1.2) 07/28/23 17:51 AST 12 U/L (0-40) 07/28/23 17:51 ALT 24 U/L (0-41) 07/28/23 17:51 Alkaline Phosphatase 130 U/L (40-130) 07/28/23 17:51 Troponin T Baseline < 6 ng/L (0-15) 07/28/23 17:51 Troponin T 120 Minute 6.09 ng/L (0-15) 07/28/23 20:17 Delta Troponin T 0.98519 ABS# (0-10) 07/28/23 20:17 Troponin T Hi Sens 6Hr 7.59 ng/L (0-15) 07/29/23 00:00 Troponin T Hi Sens 6Hr Delta 1.57248 ng/L (0-12) 07/29/23 00:00 C-Reactive Protein 28.4 mg/L (0.0-4.9) H 07/28/23 20:17 NT-Pro-B Natriuret Pep < 36 pg/mL (0-125) 07/28/23 17:51 Total Protein 7.3 g/dL (6.6-8.7) 07/28/23 17:51 Albumin 4.0 g/dL (3.5-5.2) 07/28/23 17:51 Globulin 3.3 g/dL (1.3-4.6) 07/28/23 17:51 Procalcitonin 0.08 ng/mL (0-0.5) 07/28/23 20:17 TSH 3.08 uIU/mL (0.27-4.20) 07/28/23 20:27 Adenovirus (PCR) Not detected (NOT DETECT) 07/28/23 21:37 C. pneumoniae DNA (PCR) Not detected (NOT DETECT) 07/28/23 21:37 Coronavirus 229E (PCR) Not detected (NOT DETECT) 07/28/23 21:37 Human Metapneumovir PCR Not detected (NOT DETECT) 07/28/23 21:37 Influenza A (H1) PCR Not detected (NOT DETECT) 07/28/23 21:37 Influ A (H1/09) PCR Not detected (NOT DETECT) 07/28/23 21:37 Influenza A (H3) PCR Not detected (NOT DETECT) 07/28/23 21:37 Influenza Type A (PCR) Not detected (NOT DETECT) 07/28/23 21:37 Influenza Type B (PCR) Not detected (NOT DETECT) 07/28/23 21:37 M. pneumoniae (PCR) Not detected (NOT DETECT) 07/28/23 21:37 Parainfluenza 1 (PCR) Not detected (NOT DETECT) 07/28/23 21:37 Parainfluenza 2 (PCR) Not detected (NOT DETECT) 07/28/23 21:37 Parainfluenza 3 (PCR) Not detected (NOT DETECT) 07/28/23 21:37 Parainfluenza 4 (PCR) Not detected (NOT DETECT) 07/28/23 21:37 RSV Type A (PCR) Not detected (NOT DETECT) 07/28/23 21:37 RSV Type B (PCR) Not detected (NOT DETECT) 07/28/23 21:37 Entero/Rhino (PCR) Not detected (NOT DETECT) 07/28/23 21:37 SARS-CoV-2 (PCR) Not detected (NOT DETECT) 07/28/23 21:37 Vitals Last Vital Signs Temp 98.1 F 07/30/23 08:24 Pulse 69 07/30/23 08:24 Resp 18 07/30/23 08:24 BP 131/69 07/30/23 08:24 Pulse Ox 95 07/30/23 08:24 O2 Del Method Room Air 07/30/23 08:24 O2 Flow Rate 2 07/29/23 00:07 Discharge Plan Discharge Patient Disposition: Home Condition: Stable Prescriptions: New levofloxacin 750 mg Tablet 750 mg PO DAILY@0600 Qty: 7 0RF Eliquis 5 mg tablet 5 mg PO BID Qty: 120 3RF Rx Instructions: 10 mg twice daily for 7 days then 5 mg twice daily for 6 months Continued hydrocodone-acetaminophen 5-325 mg tablet 1 - 2 tab PO Q5H PRN (Reason: Pain) Discontinued potassium gluconate 595 mg (99 mg) Tablet 1,785 mg PO DAILY PRN (Reason: Muscle Spasm) Discharge Orders: Discharge Order (Routine); Ordered 07/30/23 Ordered By: Christina Valle Other Ambulatory Orders: Complete Blood Count w/Auto (Routine) Timeframe: 3 Days Location: Determined by Patient Ordered By: Christina Valle Referrals: Winston Pal MD [Primary Care Provider] - Patient Instructions: Opioid Safety Activity Restrictions/Additional Instructions: Provoked thromboembolic phenomenon, please take blood thinner for at least 6 to 9 months and then your primary care physician will decide whether you need to continue it longer Please take antibiotics for 7 days Repeat your CBC to keep an eye on your white count Discharge Attestations Time Spent in Discharge Care*: greater than 30 min Quality Metrics Clinical Quality Measures [ No reported AMI, CVA or VTE this stay] Coding Level of Care Code Acute Code for Chg Fwd Diagnoses Postoperative seroma Colon cancer C18.9 H/O right hemicolectomy Z90.49
== END 2023-07-30 12:40 | disposition home or self-care (01) | DRG 175 ==
LOC: ER 19:34 → MEDSURG 20:08
PROVIDERS: Family Medicine; Admitting Provider Family Medicine; Emergency Provider Emergency Medicine; PCP Family Medicine; Visit Provider Internal Medicine
DX: I26.99 Other pulmonary embolism without acute cor pulmonale (principal); J18.9 Pneumonia, unspecified organism; J96.01 Acute respiratory failure with hypoxia; J90 Pleural effusion, not elsewhere classified; L76.34 Postprocedural seroma of skin and subcutaneous tissue following other procedure; Z90.49 Acquired absence of other specified parts of digestive tract; Z85.038 Personal history of other malignant neoplasm of large intestine; Y83.8 Other surgical procedures as the cause of abnormal reaction of the patient, or of later complication, without mention of misadventure at the time of the procedure
CPT/HCPCS: 36415; 71045; 71275; 74176; 80048; 80053; 83036; 83605; 83735; 83880; 84100; 84145; 84443; 84484; 85025; 85378; 85610; 85651; 86140; 87040; 87486; 87581; 87633; 92523; 92526; 93005; 93306; 93970; 94664; 96365; 96367; 96372; 96375; 96376; 99285; C9113; J0456; J0696; J1170; J1650; J2405; J2930; J7050; Q9967

== ENCOUNTER 2024-01-11 13:37 | Emergency (ER) | payer MEDICARE, SELFPAY ==
[2024-01-11 13:59] LABS: Basophils % 0.4 %; Eosinophils # 0.1 10^3/uL (0.0-0.8); Eosinophils % 1.2 %; Hematocrit 47.2 % (37-53); Lymphocytes # 1.7 10^3/uL (0.8-4.8); Lymphocytes % 22.4 %; Mean Corpuscular HGB Conc 34.1 g/dL (30-55); Mean Corpuscular Hemoglobin 32.1 pg (27-33); Mean Platelet Volume 9.1 fL (7.4-10.4); Monocytes % 12.7 %; Neutrophils # 4.88 10^3/uL (1.8-7.7); Neutrophils % 62.9 %; Nucleated Red Blood Cells % 0 %; Platelet Count 204 10^3/cmm (157-399); Red Blood Count 5.02 10^6/uL (3.85-5.65); Red Cell Distribution Width 12.1 % (12.1-15.1); White Blood Count 7.74 10^3/uL (3.29-11.43)
[2024-01-11 14:09] VITALS: BP 121/77; PULSE 59; RESP 16; TEMP 37; O2SAT 97
[2024-01-11 14:23] LABS: Alanine Aminotransferase 24 U/L (0-41); Albumin Level 3.7 g/dL (3.5-5.2); Alkaline Phosphatase 91 U/L (40-130); Anion Gap 15.6 (5-19); Aspartate Amino Transferase 15 U/L (0-40); Blood Urea Nitrogen 13 mg/dL (8-23); Calcium 8.3 mg/dL (8.5-10.5); Carbon Dioxide 22 mmol/L (22-29); Chloride 103 mmol/L (98-107); Creatinine Clr Calc Pharmacy 91.7027; Globulin 2.6 g/dL (1.3-4.6); Glomerular Filtration Rate 112.5 mL/min (90-130); Glucose 96 mg/dL (65-115); Lipase 31 U/L (13-60); Osmolality Calculated 284 mOsm/kg (285-295); Potassium 3.6 mmol/L (3.5-5.1); Sodium 137 mmol/L (136-145); Total Bilirubin 0.2 mg/dL (0.15-1.2); Total Protein 6.3 g/dL (6.6-8.7)
[2024-01-11 15:54] LABS: Add Urine Microscopic? NO; Charge for UA Resulting for Rev
--- NOTE | 2024-01-11 15:58 | CTR_ITS ---
PROCEDURE INFORMATION: Exam: CT Abdomen And Pelvis With Contrast Exam date and time: 01/11/2024 4:14 PM Age: 68 years old Clinical indication: Pain; Bloating and nausea; Localized; Left; Prior surgery; Surgery date: 6+ months; Surgery type: Colon CA; Additional info: Ab pain, nausea, bloating TECHNIQUE: Imaging protocol: Computed tomography of the abdomen and pelvis with contrast. Contrast material: OMNI 350; Contrast volume: 100 ml; Contrast route: INTRAVENOUS (IV); COMPARISON: CT abdomen pelvis wo con [id number] 07/28/2023 8:07 PM RADIATION DOSE METRICS: Total DLP (mGy-cm): 529.93 FINDINGS: Lungs: Lung bases are clear. No pleural effusion. Liver: Normal. No mass. Gallbladder and biliary ducts: Normal. No calcified stones. No ductal dilation. Pancreas: Normal. No ductal dilation. Spleen: Normal. No splenomegaly. Adrenal glands: Normal. No mass. Kidneys and ureters: Simple cysts involve both kidneys. Stomach and bowel: There is evidence of previous right colonic surgery. There are multiple loops of mildly prominent, fluid-filled small bowel. I see no colonic dilatation. Solid stool is noted in the colon. Appendix: No evidence of appendicitis. Intraperitoneal space: Unremarkable. No free air. No significant fluid collection. Vasculature: Unremarkable. No abdominal aortic aneurysm. Lymph nodes: There is a group of mildly enlarged lymph nodes in the jerrod hepatis region. The largest node measures 2 cm in diameter. Urinary bladder: Unremarkable as visualized. Reproductive: The prostate gland is abnormally enlarged. Bones/joints: Unremarkable. No acute fracture. Soft tissues: Unremarkable. CT/CT abdomen pelvis w con* [id number] IMPRESSION: 1. Findings suggesting small bowel enteritis 2. A benign renal cyst or cysts have been detected. No further follow-up imaging is required. 3. Stable right upper quadrant adenopathy COMMENTS: Consistent with the [employer]'s Incidental Findings Committee white paper (J Am Raffy Radiol 2018): Any incidental renal lesion less than 1 cm or classified as too small to characterize, or any incidental cystic renal lesion characterized as simple-appearing, is likely benign. No follow-up imaging is recommended for these lesions per consensus recommendations based on imaging criteria.
--- NOTE | 2024-01-11 15:58 | ED_ITS ---
HPI - Abdominal Pain 2 General: Chief Complaint: Abdominal Pain Stated Complaint: abd pain Time Seen by Provider: 01/11/24 15:41 Source: patient and family Mode of arrival: ambulatory Limitations: no limitations History of Present Illness: Patient is a nice 58-year-old male presents to ED today along with his significant other for ration of abdominal pain. Patient states he has had intermittent short bursts of abdominal pain over the past several months however the past 3 to 4 days pain has become more progressive with worsening exacerbations. He has not had any vomiting. He reports chronic watery diarrhea. Previous abdominal surgeries include an incisional hernia repair as well as a cecal polyp resection by Dr. Moss. Patient has continued to eat and drink. No fevers. MD elicited complaint: abdominal pain Onset (ago): day(s) Pain Consistency: constant and colicky Location: Diffuse Severity: moderate Quality: sharp Radiation: none Migration to: no migration Exacerbating factors: nothing Relieving factors: nothing Associated Symptoms: Reports diarrhea; Denies chills, dysuria, fever(s), hematochezia, hematemesis, melena, nausea and vomiting Review of Systems 2 Const: Denies: fever(s), chills, body aches, fatigue or malaise Card: Denies: chest pain Resp: Denies: dyspnea GI: Reports: abdominal pain and diarrhea; Denies: nausea, vomiting, hematemesis, hematochezia or melena : Denies: flank pain, difficulty urinating, dysuria, urinary frequency, urinary urgency or urinary hesitancy Musc: Denies: neck pain, back pain, extremity pain or joint pain Skin/Breast: Denies: rash Neuro: Denies: headache(s), numbness in extremities, weakness in extremities, sensory changes or dizziness PFSH ED 2 PFSH: Medical History Postoperative seroma Pneumonia Pleurisy Acute hypoxic respiratory failure Pulmonary embolism Colon cancer Status post hemicolectomy, currently in remission Colon polyps Surgical History S/P appendectomy H/O right hemicolectomy Social History Smoking and tobacco/nicotine status: current every day tobacco/nicotine user Physical Exam 2 Const: COMMON NORMALS: no acute distress, average body habitus, patient oriented x3, no limitations, healthy appearing, alert and well nourished G ENERAL APPEARANCE: cooperative Eye: COMMON NORMALS: no scleral icterus Resp: COMMON NORMALS: normal respiratory effort and clear to auscultation bilaterally AUSCULTATION: clear to auscultation bilaterally Cardio: COMMON NORMALS: regular rate and regular rhythm RATE: regular rate RHYTHM: regular rhythm GI: COMMON NORMALS: Normal to inspection, nondistended, normoactive bowel sounds present, Soft to palpation, non-tender, No hepatosplenomegaly present and no masses INSPECTION: Yes normal to inspection and Yes other (incisional hernia) AUSCULTATION: Yes normoactive bowel sounds PALPATION: Yes Soft to palpation, No Tenderness to palpation present (GI), No Guarding due to palpation present (GI), No Rigid due to palpation and Yes No hepatosplenomegaly present OTHER: states he is not really hurting currently : COMMON NORMALS: Yes no CVA tenderness BLADDER/KIDNEY EXAM: Yes no CVA tenderness Back/Pelvis: COMMON NORMALS: no CVA tenderness and thoracic and lumbar spine normal to inspection Extremity: GENERAL: Yes normal exam except as noted Neuro: COMMON NORMALS: patient oriented x3, moves all extremities, no focal motor deficits and no sensory deficits noted SENSORIUM/ORIENTATION: Yes alert Skin: COMMON NORMALS: no rashes or lesions noted GENERAL SKIN EXAM: no rashes or lesions noted Course 2 Vital Signs: Vital signs: Vital Signs Temperature 98.6 F 01/11/24 14:09 Pulse Rate 57 L 01/11/24 16:27 Respiratory Rate 16 01/11/24 16:27 Blood Pressure 133/78 01/11/24 16:27 Pulse Oximetry 96 01/11/24 16:27 Oxygen Delivery Me thod Room Air 01/11/24 16:27 MDM - Abdominal Pain Medical Decision Making Patient appears in NAD. Vital signs are stable. He currently is not having any pain. He has a normal white count. Blood work overall is unremarkable. CT scan suggesting small bowel enteritis. Patient will be treated conservatively. Recommend follow-up with primary care next week. Return to ED precautions given. Medical Records I reviewed the patient's medical records. Lab Data I reviewed the patient's lab results. 01/11/24 13:54 01/11/24 13:54 Labs/Radiology: Radiology Impressions Abdomen/Pelvis CT 01/11/24 15:58 IMPRESSION: 1. Findings suggesting small bowel enteritis 2. A benign renal cyst or cysts have been detected. No further follow-up imaging is required. 3. Stable right upper quadrant adenopathy COMMENTS: Consistent with the [employer]'s Incidental Findings Committee white paper (J Am Raffy Radiol 2018): Any incidental renal lesion less than 1 cm or classified as too small to characterize, or any incidental cystic renal lesion characterized as simple-appearing, is likely benign. No follow-up imaging is recommended for these lesions per consensus recommendations based on imaging criteria. Laboratory Results WBC 7.74 10^3/uL (3.29-11.43) 01/11/24 13:54 RBC 5.02 10^6/uL (3.85-5.65) 01/11/24 13:54 Hgb 16.10 g/dL (11.27-16.99) 01/11/24 13:54 Hct 47.2 % (37-53) 01/11/24 13:54 MCV 94.0 fl (82-101) 01/11/24 13:54 MCH 32.1 pg (27-33) 01/11/24 13:54 MCHC 34.1 g/dL (30-55) 01/11/24 13:54 RDW 12.1 % (12.1-15.1) 01/11/24 13:54 Plt Count 204 10^3/cmm (157-399) 01/11/24 13:54 MPV 9.1 fL (7.4-10.4) 01/11/24 13:54 Neut % (Auto) 62.9 % 01/11/24 13:54 Lymph % (Auto) 22.4 % 01/11/24 13:54 [place] % (Auto) 12.7 % 01/11/24 13:54 Eos % (Auto) 1.2 % 01/11/24 13:54 Baso % (Auto) 0.4 % 01/11/24 13:54 Neut # (Auto) 4.88 10^3/uL (1.8-7.7) 01/11/24 13:54 Lymph # (Auto) 1.7 10^3/uL (0.8-4.8) 01/11/24 13:54 [place] # (Auto) 1.0 10^3/uL (0.2-0.9) H 01/11/24 13:54 Eos # (Auto) 0.1 10^3/uL (0.0-0.8) 01/11/24 13:54 Baso # (Auto) 0.0 10^3/uL (0.0-0.1) 01/11/24 13:54 Nucleated RBC % (auto) 0 % 01/11/24 13:54 Nucleated RBCs # 0.0 /100WBC 01/11/24 13:54 Sodium 137 mmol/L (136-145) 01/11/24 13:54 Potassium 3.6 mmol/L (3.5-5.1) 01/11/24 13:54 Chloride 103 mmol/L (98-107) 01/11/24 13:54 Carbon Dioxide 22 mmol/L (22-29) 01/11/24 13:54 Anion Gap 15.6 (5-19) 01/11/24 13:54 BUN 13 mg/dL (8-23) 01/11/24 13:54 Creatinine 0.7 mg/dL (0.7-1.2) 01/11/24 13:54 GFR Calculation 112.5 mL/min (90-130) 01/11/24 13:54 Glucose 96 mg/dL (65-115) 01/11/24 13:54 Calculated Osmolality 284 mOsm/kg (285-295) L 01/11/24 13:54 Calcium 8.3 mg/dL (8.5-10.5) L 01/11/24 13:54 Total Bilirubin 0.2 mg/dL (0.15-1.2) 01/11/24 13:54 AST 15 U/L (0-40) 01/11/24 13:54 ALT 24 U/L (0-41) 01/11/24 13:54 Alkaline Phosphatase 91 U/L (40-130) 01/11/24 13:54 Total Protein 6.3 g/dL (6.6-8.7) L 01/11/24 13:54 Albumin 3.7 g/dL (3.5-5.2) 01/11/24 13:54 Globulin 2.6 g/dL (1.3-4.6) 01/11/24 13:54 Lipase 31 U/L (13-60) 01/11/24 13:54 Urine Color Yellow (Yellow) 01/11/24 15:49 Urine Appearance Clear (CLEAR) 01/11/24 15:49 Urine pH 5 (5-7) 01/11/24 15:49 Ur Specific [place] 1.025 (1.005-1.030) 01/11/24 15:49 Urine Protein Neg (Negative) 01/11/24 15:49 Urine Glucose (UA) 2+ (Normal) H 01/11/24 15:49 Urine Ketones 1+ (Negative) H 01/11/24 15:49 Urine Blood Neg (Negative) 01/11/24 15:49 Urine Nitrate Negative (Negative) 01/11/24 15:49 Urine Bilirubin Neg (Negative) 01/11/24 15:49 Urine Urobilinogen Norm mg/dL (Negative) 01/11/24 15:49 Ur Leukocyte Esterase Negative (Negative) 01/11/24 15:49 All radiology interpretation(s) finalized by discharge Discharge Plan Discharge Patient Disposition: Home Clinical Impression: Enteritis Condition: Stable Prescriptions: No Action hydrocodone-acetaminophen 5-325 mg tablet 1 - 2 tab PO Q5H PRN (Reason: Pain) levofloxacin 750 mg Tablet 750 mg PO DAILY@0600 Qty: 7 0RF Eliquis 5 mg tablet 5 mg PO BID Qty: 120 3RF Rx Instructions: 10 mg twice daily for 7 days then 5 mg twice daily for 6 months Discharge Orders: Discharge ED (Routine); Ordered 01/11/24 Ordered By: Farzaneh Maldonado Referrals: Earl Lawrence MD [Primary Care Provider] - Patient Instructions: Enteritis (ED) Coding Level of Care Code ED [employer] for [facility]
[2024-01-11 16:26] LABS: Bilirubin Urine Neg (Negative); Blood Urine Neg (Negative); Glucose Urine UA 2+ (Normal); Ketones Urine 1+ (Negative); Leukocyte Esterase Urine Negative (Negative); Nitrate Urine Negative (Negative); Protein Urine Neg (Negative); Specific Gravity, Urine 1.025 (1.005-1.030); Urine Appearance Clear (CLEAR); Urine Color Yellow (Yellow); Urobilinogen Urine Norm (Negative); pH Urine 5 (5-7)
[2024-01-11 16:27] VITALS: BP 133/78; PULSE 57; RESP 16; O2SAT 96
[2024-01-11 18:02] VITALS: BP 128/72; PULSE 59; RESP 16; TEMP 37; O2SAT 98
== END 2024-01-11 17:56 | disposition home or self-care (01) ==
PROVIDERS: Emergency Medicine; Emergency Provider Physician Assistant; PCP Family Medicine
DX: K52.9 Noninfective gastroenteritis and colitis, unspecified (principal); Z79.899 Other long term (current) drug therapy; Z79.01 Long term (current) use of anticoagulants; Z85.038 Personal history of other malignant neoplasm of large intestine; Z90.49 Acquired absence of other specified parts of digestive tract
CPT/HCPCS: 36415; 74177; 80053; 81003; 83690; 85025; 99284; Q9967

== ENCOUNTER 2024-08-03 08:24 | Emergency (ER) | payer MEDICARE, SELFPAY ==
[2024-08-03] VITALS (8 sets, daily range): BP systolic 144–160; BP diastolic 82–91; PULSE 58–68; RESP 14–16; TEMP 36.4; O2SAT 96–98; BMI 24.3
--- NOTE | 2024-08-03 08:49 | CTR_ITS ---
PROCEDURE INFORMATION: Exam: CT Abdomen And Pelvis With Contrast Exam date and time: 08/03/2024 10:21 AM Age: 69 years old Clinical indication: Abdominal pain; Prior surgery; Surgery date: 6+ months; Surgery type: Colon; Additional info: Black stool and 3 weeks abd pain, HX of tubulovillous adenoma involving cecum; Patient TECHNIQUE: Imaging protocol: Computed tomography of the abdomen and pelvis with contrast. Radiation optimization: All CT scans at this facility use at least one of these dose optimization techniques: automated exposure control; mA and/or kV adjustment per patient size (includes targeted exams where dose is matched to clinical indication); or iterative reconstruction. Contrast material: OMNI 350; Contrast volume: 100 ml; Contrast route: INTRAVENOUS (IV); COMPARISON: CT abdomen pelvis w con* [id number] 01/11/2024 4:14 PM RADIATION DOSE METRICS: Total DLP (mGy-cm): 498.71 FINDINGS: Coronary arteries: Coronary artery calcification. Diaphragm: Small hiatal hernia. Liver: Normal. No mass. Gallbladder and biliary ducts: Normal. No calcified stones. No ductal dilation. Pancreas: Normal. No ductal dilation. Spleen: Splenic granuloma. Adrenal glands: Normal. No mass. Kidneys and ureters: Nonobstructive left upper pole cortical nephrolith. Multiple hypodense cystic lesions at the bilateral kidneys majority of which measure less than 20 Hounsfield units consistent with simple cysts. Right inferior renal pole hypodense lesion measures 1.5 cm and has intervally decreased from 2019 when it measured 3.6 cm with Hounsfield units of 42, unchanged from prior. Other smaller subcentimeter hypodense lesions bilaterally. Stomach and bowel: Colonic diverticulosis without diverticulitis. Status post right hemicolectomy with ileocolic anastomosis of the proximal transverse colon. Appendix: No evidence of appendicitis. Intraperitoneal space: Unremarkable. No free air. No significant fluid collection. Vasculature: Unremarkable. No abdominal aortic aneurysm. Lymph nodes: Grossly similar appearance of paraesophageal lymph node. Urinary bladder: Unremarkable as visualized. Reproductive: Mild prostatomegaly with calcification. Bones/joints: Diffuse degenerative change of the thoracolumbar spine most significant at the lower lumbar spine with minimal grade 1 retrolisthesis of L3 on L4 and L4 on L5. Soft tissues: Anterior ventral abdominal wall postsurgical change. CT/CT abdomen pelvis w con* [id number] IMPRESSION: 1. No acute abdominopelvic abnormality. 2. Chronic findings as above. COMMENTS: Consistent with the [employer]'s Incidental Findings Committee white paper (J Am Raffy Radiol 2018): Any incidental renal lesion less than 1 cm or classified as too small to characterize, or any incidental cystic renal lesion characterized as simple-appearing, is likely benign. No follow-up imaging is recommended for these lesions per consensus recommendations based on imaging criteria.
--- NOTE | 2024-08-03 09:05 | ED_ITS ---
HPI - Abdominal Pain 2 General: Chief Complaint: Abdominal Pain Stated Complaint: abd pain Time Seen by Provider: 08/03/24 08:44 History of Present Illness: 69-year-old man presents to the emergenc y department along with his . Patient reports 3 weeks of intermittent abdominal pain which is usually periumbilical and sometimes in the diffuse lower half of the abdomen. It fluctuates in intensity from mild to episodes of very severe (which started occurring over the last week). 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 Lymph nodes were negative. There were incidental findings of adenocarcinoma tumor deposit in the pericolonic tissue. Ever since this procedure in 2019, the patient has had diarrhea. Patient reports since he been having pain he thought maybe it was related to diarrhea. He went on to no fat diet and his diarrhea stopped. In fact, over the last 3 days he started to get constipated for the first time and as long as he can remember. Therefore this morning he intentionally ate eggs with a couple dollop's of butter and was able to have a bowel movement. He reports he has been able to pass gas throughout the last few weeks without issue. No nausea or vomiting. No fever or chills. His states that he has a history of H. pylori and has a lot of heartburn although the patient states he does not. reports up until the last week, he had been eating Tums frequently. His stool started turning black in the last week. This morning his bowel movement was diarrhea after having the butter and eggs. He reports it was less black today. He cannot recall any history of having GI bleeding. Associated Symptoms: Denies chills, dysuria, fever(s), nausea, syncope and vomiting Related Data Previous Rx's Medication Instructions Recorded omeprazole 40 mg capsule,delayed 40 mg PO DAILY 30 days #30 caps 08/03/24 release Allergies Allergy/AdvReac Type Severity Reaction Status Date / Time morphine Allergy Unknown Verified 08/03/24 08:32 Review of Systems 2 General: Reports: 10 or more systems reviewed and unremarkable except in HPI and below Const: Denies: fever(s), chills or body aches Eyes: Denies: change in vision ENMT: Denies: throat pain Card: Denies: chest pain, edema or syncope Resp: Denies: dyspnea or productive cough GI: Denies: nausea or vomiting : Denies: flank pain, dysuria or urinary frequency Musc: Denies: neck pain, back pain, extremity pain or extremity swelling Skin/Breast: Denies: rash or erythema Neuro: Denies: headache(s), numbness in extremities, weakness in extremities, lack of coordination or difficulty walking PFSH ED 2 PFSH: Medical History Postoperative seroma Pneumonia Pleurisy Acute hypoxic respiratory failure Pulmonary embolism Colon cancer Status post hemicolectomy, currently in remission Colon polyps Surgical History S/P appendectomy H/O right hemicolectomy Social History Smoking and tobacco/nicotine status: current every day tobacco/nicotine user Physical Exam 2 Const: COMMON NORMALS: no limitations, alert and well nourished EXAM LIMITATIONS: no altered mental status HENMT: COMMON NORMALS: normocephalic, atraumatic and external ears normal H EAD & SCALP: normocephalic and atraumatic EXTERNAL EAR: Yes external ears normal MOUTH: no muffled voice Eye: COMMON NORMALS: conjunctivae normal and no scleral icterus C ONJUNCTIVA: Yes conjunctivae normal Neck/C-Spine: COMMON NORMALS: no JVD GENERAL: Yes normal visual inspection and Yes trachea midline Resp: COMMON NORMALS: normal respiratory effort, No use of accessory muscles and clear to auscultation bilaterally AUSCULTATION: clear to auscultation bilaterally Cardio: COMMON NORMALS: no JVD and regular rate RATE: regular rate GI: COMMON NORMALS: Soft to palpation and non-tender AUSCULTATION: Yes Hypoactive bowel sounds present PALPATION: Yes Soft to palpation and No Guarding due to palpation present (GI) OTHER: Soft, nontender, nondistended. Hypoactive bowel sounds. There is a mass palpable in the subcutaneous/fascial tissue just above and lateral to the left side of the umbilicus. This is where they repaired an incisional hernia from his bowel resection in 2019. says this is always been present and is not new or changed. Extremity: COMMON NORMALS: normal to inspection Neuro: COMMON NORMALS: moves all extremities, no focal motor deficits and no sensory deficits noted SENSORIUM/ORIENTATION: Yes alert SPEECH: speech normal Psych: COMMON NORMALS: mental status grossly normal, Normal thought process present, cooperative, normal affect and speech normal SPEECH: Yes normal speech THOUGHT PROCESS: Normal thought process present Skin: COMMON NORMALS: no rashes or lesions noted, turgor normal and no jaundice GENERAL SKIN EXAM: no rashes or lesions noted and turgor normal Course 2 Vital Signs: Vital signs: Vital Signs Temperature 97.6 F 08/03/24 08:32 Pulse Rate 58 L 08/03/24 08:32 Respiratory Rate 16 08/03/24 11:03 Blood Pressure 144/91 08/03/24 11:31 Pulse Oximetry 96 08/03/24 11:31 MDM - Abdominal Pain Medical Decision Making Fairly insidious onset abdominal pain which fluctuates in intensity along with dark-colored stool. Given the patient's history of adenocarcinoma of the right side of the colon, this would be the biggest concern. He has had colectomy and reportedly had a colonoscopy last year. Patient reports that the colonoscopy did not show anything; we do not have the records here. Partial bowel obstruction, colitis, diverticulitis, bleeding polyp, neoplastic process, UTI, bladder spasm, ileus, upper GI bleed, slow lower GI bleed, anemia, renal failure, dehydration, multiple differential diagnoses. I have requested to do a fecal occult blood test. Patient thinks he can do a bowel movement here that we can test otherwise we will do a rectal exam. I have recommended that we do a CT scan of the abdomen and pelvis with IV and oral contrast in addition to UA, CBC, CMP, lipase. Update 11:30 AM CBC with differential nonactionable. Reassuring white count, hemoglobin, platelets. CMP with mild low sodium and bicarb, otherwise nonactionable Hemoccult is negative today CT of the abdomen and pelvis shows: FINDINGS: Coronary arteries: Coronary artery calcification. Diaphragm: Small hiatal hernia. Liver: Normal. No mass. Gallbladder and biliary ducts: Normal. No calcified stones. No ductal dilation. Pancreas: Normal. No ductal dilation. Spleen: Splenic granuloma. Adrenal glands: Normal. No mass. Kidneys and ureters: Nonobstructive left upper pole cortical nephrolith. Multiple hypodense cystic lesions at the bilateral kidneys majority of which measure less than 20 Hounsfield units consistent with simple cysts. Right inferior renal pole hypodense lesion measures 1.5 cm and has intervally decreased from 2019 when it measured 3.6 cm with Hounsfield units of 42, unchanged from prior. Other smaller subcentimeter hypodense lesions bilaterally. Stomach and bowel: Colonic diverticulosis without diverticulitis. Status post right hemicolectomy with ileocolic anastomosis of the proximal transverse colon. Appendix: No evidence of appendicitis. Intraperitoneal space: Unremarkable. No free air. No significant fluid collection. Vasculature: Unremarkable. No abdominal aortic aneurysm. Lymph nodes: Grossly similar appearance of paraesophageal lymph node. Urinary bladder: Unremarkable as visualized. Reproductive: Mild prostatomegaly with calcification. Bones/joints: Diffuse degenerative change of the thoracolumbar spine most significant at the lower lumbar spine with minimal grade 1 retrolisthesis of L3 on L4 and L4 on L5. Soft tissues: Anterior ventral abdominal wall postsurgical change. I have explained to the patient that we did not find a cause for his symptoms. I explained the limitations of CT and laboratory testing. It is not a substitute for colonoscopy given his colon cancer history. Recommend he follow- up with his PCP, general surgeon or medical legal investigator to discuss the risk benefits and alternatives of doing further workup such as colonoscopy. I am also going to put the patient on a PPI as his states he has a history of H. pylori, gastritis, and in the past has frequently used Tums . Return precautions provided. Lab Data 08/03/24 09:04 08/03/24 09:04 Labs/Radiology: Radiology Impressions Abdomen/Pelvis CT 08/03/24 08:49 IMPRESSION: 1. No acute abdominopelvic abnormality. 2. Chronic findings as above. COMMENTS: Consistent with the [employer]'s Incidental Findings Committee white paper (J Am Raffy Radiol 2018): Any incidental renal lesion less than 1 cm or classified as too small to characterize, or any incidental cystic renal lesion characterized as simple-appearing, is likely benign. No follow-up imaging is recommended for these lesions per consensus recommendations based on imaging criteria. Laboratory Results WBC 6.59 10^3/uL (3.29-11.43) 08/03/24 09:04 RBC 5.06 10^6/uL (3.85-5.65) 08/03/24 09:04 Hgb 15.80 g/dL (11.27-16.99) 08/03/24 09:04 Hct 46.9 % (37-53) 08/03/24 09:04 MCV 92.7 fl (82-101) 08/03/24 09:04 MCH 31.2 pg (27-33) 08/03/24 09:04 MCHC 33.7 g/dL (30-55) 08/03/24 09:04 RDW 11.7 % (12.1-15.1) L 08/03/24 09:04 Plt Count 235 10^3/cmm (157-399) 08/03/24 09:04 MPV 8.8 fL (7.4-10.4) 08/03/24 09:04 Neut % (Auto) 54.4 % 08/03/24 09:04 Lymph % (Auto) 32.5 % 08/03/24 09:04 [place] % (Auto) 9.7 % 08/03/24 09:04 Eos % (Auto) 2.6 % 08/03/24 09:04 Baso % (Auto) 0.6 % 08/03/24 09:04 Neut # (Auto) 3.59 10^3/uL (1.8-7.7) 08/03/24 09:04 Lymph # (Auto) 2.1 10^3/uL (0.8-4.8) 08/03/24 09:04 [place] # (Auto) 0.6 10^3/uL (0.2-0.9) 08/03/24 09:04 Eos # (Auto) 0.2 10^3/uL (0.0-0.8) 08/03/24 09:04 Baso # (Auto) 0.0 10^3/uL (0.0-0.1) 08/03/24 09:04 Nucleated RBC % (auto) 0 % 08/03/24 09:04 Nucleated RBCs # 0.0 /100WBC 08/03/24 09:04 Sodium 132 mmol/L (136-145) L 08/03/24 09:04 Potassium 4.3 mmol/L (3.5-5.1) 08/03/24 09:04 Chloride 99 mmol/L (98-107) 08/03/24 09:04 Carbon Dioxide 20 mmol/L (22-29) L 08/03/24 09:04 Anion Gap 17.3 (5-19) 08/03/24 09:04 BUN 18 mg/dL (8-23) 08/03/24 09:04 Creatinine 0.8 mg/dL (0.7-1.2) 08/03/24 09:04 GFR Calculation 96.1 mL/min (90-130) 08/03/24 09:04 Glucose 105 mg/dL (65-115) 08/03/24 09:04 Calculated Osmolality 276 mOsm/kg (285-295) L 08/03/24 09:04 Calcium 8.7 mg/dL (8.5-10.5) 08/03/24 09:04 Total Bilirubin 0.2 mg/dL (0.15-1.2) 08/03/24 09:04 AST 18 U/L (0-40) 08/03/24 09:04 ALT 24 U/L (0-41) 08/03/24 09:04 Alkaline Phosphatase 84 U/L (40-130) 08/03/24 09:04 Total Protein 6.6 g/dL (6.6-8.7) 08/03/24 09:04 Albumin 4.0 g/dL (3.5-5.2) 08/03/24 09:04 Globulin 2.6 g/dL (1.3-4.6) 08/03/24 09:04 Lipase 34 U/L (13-60) 08/03/24 09:04 Urine Color Yellow (Yellow) 08/03/24 10:30 Urine Appearance Clear (CLEAR) 08/03/24 10:30 Urine pH 5.0 (5-7) 08/03/24 10:30 Ur Specific [place] 1.024 (1.005-1.030) 08/03/24 10:30 Urine Protein Trace (Negative) A 08/03/24 10:30 Urine Glucose (UA) Negative (Normal) 08/03/24 10:30 Urine Ketones Negative (Negative) 08/03/24 10:30 Urine Blood Negative (Negative) 08/03/24 10:30 Urine Nitrate Negative (Negative) 08/03/24 10:30 Urine Bilirubin Negative (Negative) 08/03/24 10:30 Urine Urobilinogen 0.2 mg/dL (Negative) 08/03/24 10:30 Ur Leukocyte Esterase Negative (Negative) 08/03/24 10:30 Urine RBC 0-2 /hpf (0-2) 08/03/24 10:30 Urine WBC 0-5 /hpf (0-5) 08/03/24 10:30 Ur Squamous Epith Cells 0-5 /hpf (0-5) 08/03/24 10:30 Amorphous Sediment Not Reportable 08/03/24 10:30 Urine Bacteria None seen /hpf (NONE) 08/03/24 10:30 Hyaline Casts 0.81 /lpf 08/03/24 10:30 Urine Sperm 1+ /hpf 08/03/24 10:30 All radiology interpretation(s) finalized by discharge Discharge Plan Discharge Patient Disposition: Home Clinical Impression: Intermittent abdominal pain, Dark stools Condition: Stable Prescriptions: New omeprazole 40 mg capsule,delayed release(DR/EC) 40 mg PO DAILY 30 Days Qty: 30 0RF Discharge Orders: Discharge ED (Routine); Ordered 08/03/24 Ordered By: Johnny Galvan Referrals: Earl Lawrence MD [Primary Care Provider] - 4-7 days (intermittent abd pain 3 days; hx of colon cancer; dark stool hemoccult neg; ct in ED neg but hasn't had colonoscopy in about 1 year) Discharge Diet: Advance as tolerated Discharge Activity: Resume usual activity Patient Instructions: Abdominal Pain (ED) Activity Restrictions/Additional Instructions: The cause of your symptoms is unclear. There is no obvious blockage, narrowing, mass, inflammation, or infection on your labs or imaging. However, it is important to realize that CT imaging is not the gold standard for ruling out colon cancer or strictures. Since you have a history of colon cancer and are having symptoms for the last 3 weeks, please call your general surgeon or family doctor to arrange for follow-up. I would recommend that you have repeat colonoscopy given your new symptoms. This will help directly visualize the area of concern. Your Hemoccult test was negative today. This means that we did not detect any blood in your stool today. Please read the handout about abdominal pain as it has important return precautions. If you have fever, distention of the abdomen, inability to pass gas, severe pain, or other emergency conditions then please call your doctor or go to the ER. Coding Level of Care Code ED Dramatic Agent for Mary Newman
[2024-08-03 09:14] LABS: Basophils % 0.6 %; Eosinophils # 0.2 10^3/uL (0.0-0.8); Eosinophils % 2.6 %; Hematocrit 46.9 % (37-53); Lymphocytes # 2.1 10^3/uL (0.8-4.8); Lymphocytes % 32.5 %; Mean Corpuscular HGB Conc 33.7 g/dL (30-55); Mean Corpuscular Hemoglobin 31.2 pg (27-33); Mean Corpuscular Volume 92.7 fl (82-101); Mean Platelet Volume 8.8 fL (7.4-10.4); Monocytes # 0.6 10^3/uL (0.2-0.9); Monocytes % 9.7 %; Neutrophils # 3.59 10^3/uL (1.8-7.7); Neutrophils % 54.4 %; Nucleated Red Blood Cells % 0 %; Platelet Count 235 10^3/cmm (157-399); Red Blood Count 5.06 10^6/uL (3.85-5.65); Red Cell Distribution Width 11.7 % (12.1-15.1); White Blood Count 6.59 10^3/uL (3.29-11.43)
[2024-08-03 09:31] LABS: Alanine Aminotransferase 24 U/L (0-41); Alkaline Phosphatase 84 U/L (40-130); Anion Gap 17.3 (5-19); Aspartate Amino Transferase 18 U/L (0-40); Blood Urea Nitrogen 18 mg/dL (8-23); Calcium 8.7 mg/dL (8.5-10.5); Carbon Dioxide 20 mmol/L (22-29); Chloride 99 mmol/L (98-107); Creatinine Clr Calc Pharmacy 87.5875; Globulin 2.6 g/dL (1.3-4.6); Glomerular Filtration Rate 96.1 mL/min (90-130); Glucose 105 mg/dL (65-115); Lipase 34 U/L (13-60); Osmolality Calculated 276 mOsm/kg (285-295); Potassium 4.3 mmol/L (3.5-5.1); Sodium 132 mmol/L (136-145); Total Bilirubin 0.2 mg/dL (0.15-1.2); Total Protein 6.6 g/dL (6.6-8.7)
[2024-08-03] MEDS: iohexol 350 mg/mL 500 mL Btl (per mL) PO (09:43)
[2024-08-03] MEDS: iohexol 350 mg/mL 500 mL Btl (per mL) IV (09:43)
[2024-08-03 10:41] LABS: Bilirubin Urine Negative (Negative); Blood Urine Negative (Negative); Glucose Urine UA Negative (Normal); Ketones Urine Negative (Negative); Leukocyte Esterase Urine Negative (Negative); Nitrate Urine Negative (Negative); Protein Urine Trace (Negative); Specific Gravity, Urine 1.024 (1.005-1.030); Urine Appearance Clear (CLEAR); Urine Color Yellow (Yellow); Urobilinogen Urine 0.2 mg/dL (Negative)
[2024-08-03 10:46] LABS: Add Urine Microscopic? YES; Bacteria Urine None Seen /hpf; Hyaline Casts Urine 0.81 /lpf; RBC Urine 0-2 /hpf (0-2); Squamous Epithelial Cell Urine 0-5 /hpf (0-5); WBC Urine 0-5 /hpf (0-5)
[2024-08-03 10:55] LABS: Sperm Urine 1+ /hpf; UA Slide Review UA Slide Review Perf
== END 2024-08-03 12:09 | disposition home or self-care (01) ==
PROVIDERS: Emergency Provider Emergency Medicine; PCP Family Medicine
DX: R10.9 Unspecified abdominal pain (principal); K92.1 Melena; Z72.0 Tobacco use; Z85.038 Personal history of other malignant neoplasm of large intestine
CPT/HCPCS: 74177; 80053; 81001; 82274; 83690; 85025; 99285

== ENCOUNTER 2024-08-21 13:49 | Emergency (ER) | payer MEDICARE, SELFPAY ==
[2024-08-21 13:53] VITALS: BP 156/77; PULSE 74; RESP 16; TEMP 36.6; O2SAT 97; BMI 25.5
--- NOTE | 2024-08-21 14:50 | PC.NURSE ---
This nurse out to waiting room to round on patients. Patient asked if I knew how long it would be until he was brought back to a bed. I explained that i was not able to give an exact time. He asked if he could go home and we call him when it was his turn. I explained our process to him. No further questions at this time. Patient walked out and told the auto rental clerk to let them know he left.
[2024-08-21 15:02] LABS: Bilirubin Urine Negative (Negative); Blood Urine Negative (Negative); Glucose Urine UA Negative (Normal); Ketones Urine Negative (Negative); Leukocyte Esterase Urine Negative (Negative); Nitrate Urine Negative (Negative); Protein Urine Negative (Negative); Specific Gravity, Urine 1.015 (1.005-1.030); Urine Appearance Clear (CLEAR); Urine Color Yellow (Yellow); Urobilinogen Urine 0.2 mg/dL (Negative)
[2024-08-21 15:07] LABS: Bacteria Urine None Seen /hpf; RBC Urine 0-2 /hpf (0-2); Squamous Epithelial Cell Urine 0-5 /hpf (0-5); WBC Urine 0-5 /hpf (0-5)
== END 2024-08-21 14:48 | disposition left against medical advice (07) ==
PROVIDERS: Emergency Provider Family Medicine; PCP Family Medicine
DX: Z53.21 Procedure and treatment not carried out due to patient leaving prior to being seen by health care provider (principal)
CPT/HCPCS: 81001

== ENCOUNTER 2024-10-22 08:08 | Outpatient (CLI) | payer MEDICARE, SELFPAY ==
--- NOTE | 2024-10-22 08:13 | NM_ITS ---
WS: [id number] NUCLEAR MEDICINE HIDA SCAN CLINICAL INFORMATION: ABD PAIN TECHNIQUE: Following intravenous administration of 7.8 mCi of technetium 99m mebrofenin, images of the abdomen were obtained over the course of 60 minutes. Next, gallbladder ejection fraction was determined by obtaining preprandial and one-hour postprandial images of the gallbladder following oral ingestion of Ensure. FINDINGS: Normal hepatic uptake and 5 minutes. Normal hepatic excretion. Gallbladder does not fill by 2 hours. Normal common bile duct and small bowel activity. Gallbladder was contracted on the prior recent imaging studies with chronic appearing wall thickening and dense luminal contents likely inspissated sludge. NM/NM hepatobiliary w phar* [id number] IMPRESSION: 1. Nonfilling of the gallbladder by 120 minutes most likely due to chronic gal lbladder dysfunction/chronic cholecystitis 2. Contracted thick-walled gallbladder on the recent imaging studies with susp ected sludge filling the lumen.
--- NOTE | 2024-10-22 10:59 | CT_ITS ---
WS: [id number] CT ABDOMEN WITH CONTRAST HISTORY: ABDOMINAL PAIN Contiguous single phase 5 mm axial imaging performed to the abdomen. Oral contrast has not been provided. Coronal and sagittal reformats are submitted. All CT scans at [facility] use at least one of these dose optimization techniques: automated exposure control; mA and/or kV adjustment per patient size (includes targeted exams where dose is matched to clinical indication); or iterative reconstruction. IV CONTRAST: Omnipaque 350; 100 mL IV. Oral contrast: No DLP: 209.78 mGy.cm COMPARISON: Gallbladder ultrasound 09/30/2024, HIDA scan 10/22/2024, CT 08/03/2024, 12/10/2019, 01/11/2024 Lower thorax: Well-circumscribed 4.6 mm pulmonary nodule at the RIGHT lung base was not present on 01/11/2024 and only 2 mm on the study of 08/03/2024. No additional nodule. Heart is normal size. Small hiatal hernia. Subcentimeter distal paraesophageal lymph node. Liver/biliary system: Normal liver. No metastatic disease. RIGHT and LEFT main portal veins are normal. There is a focal area of narrowing involving the portal vein at the splenic confluence. This is a new narrowing and there is adjacent soft tissue which is probably a mesenteric deposit or lymph node encroaching into the vein. Gallbladder: Abnormal gallbladder. Gallbladder is contracted with mild wall thickening. Increased attenuation in the central lumen. No pericholecystic fluid and the common bile duct is not dilated. Gallbladder distention has been limited on several prior CT and ultrasound examinations. Pancreas: Pancreas remains normal size. No pancreatic duct dilatation. There is a soft tissue low-attenuation mildly enhancing mass which is inseparable from the uncinate process of the pancreas extending anteriorly measuring 1.8 x 2.1 cm. Spleen: Normal size spleen. No mass or infarct. Adrenal glands: Normal. Right kidney: Normal size kidney with no obstruction. Cortical cysts are identified with the largest measuring 3.4 cm. There are additional cortical hypodensities which are too small to characterize. Left kidney: Cortical cyst. No obstruction. Aorta: Mild atherosclerosis with no aneurysm. Lymphadenopathy/mesenteric deposits: Numerous enhancing irregular soft tissue masses are noted within the central mesentery and the retroperitoneum. Large cluster of low-attenuation masses centered near the celiac axis measures 2.4 x 2.6 cm. This cluster abuts the portal vein and is causing partial invasion and narrowing of the portal vein. Additional central mesenteric deposits near the central celiac axis measuring up to 1.2 cm. Adenopathy or mesenteric deposits extend between the portal vein and the IVC towards the jerrod hepatis. Periaortic and retroperitoneal adenopathy. Largest aortocaval lymph node is 1.5 cm. Free fluid: None. GI tract: Stomach is well distended with food products. Enhancing duodenal nodule measures 0.9 cm along the lateral proximal duodenum. No GI tract obstruction. Postsurgical changes are noted in the transverse colon. Mild dilatation of the colon at the surgical site. Abdominal wall: Ventral abdominal wall postsurgical changes. Visualized osseous structures: No destructive lesions. CT/CT abdomen w con* [id number] IMPRESSION: 1. Abnormal contracted gallbladder without adjacent inflammation. May be due t o chronic cholecystitis. No hepatobiliary duct dilatation. 2. Multiple mesenteric and retroperitoneal lymph nodes/mesenteric deposits are identified suspicious for metastatic disease. The largest cluster of lymph nod es to the RIGHT of the celiac axis extending towards the jerrod hepatis. Largest component of the cluster measures 2.4 x 2.6 cm. 3. Additional adenopathy or mesenteric deposits in the central abdomen surroun ding the celiac axis, retroperitoneal, aortocaval. Separate mass inseparable fr om the uncinate process of the pancreas. This may be pancreatic primary neoplas m or additional metastatic site. 4. There is narrowing and partial tumor encroachment into the portal splenic c onfluence. 5. RIGHT lung base pulmonary nodule measures 4.6 mm. This nodule was not prese nt on 01/11/2024 and 2 mm on 08/03/2024. Highly suspicious for metastatic site. 6. With history of colon cancer this most likely represents metastatic colon c ancer. With the inseparable mass near the pancreatic uncinate process the pancr eatic neoplasm or lymphoma should be considered also. Consider PET/CT imaging. 7. Upper endoscopy recommended to evaluate the duodenal enhancing nodule for p ossible benign or malignant polyp. Notified Earl Lawrence MD at 10/22/2024 1:[address] Lawrence was not available but Yara will notify Dr. Lawrence to review the report.
[2024-10-22 11:25] LABS: Blood Urea Nitrogen 13 mg/dL (8-23); Glomerular Filtration Rate 96.1 mL/min (90-130)
== END 2024-10-22 08:09 | disposition home or self-care (01) ==
PROVIDERS: PCP Family Medicine; Visit Provider Family Medicine
DX: R10.9 Unspecified abdominal pain (principal); R93.3 Abnormal findings on diagnostic imaging of other parts of digestive tract; R59.0 Localized enlarged lymph nodes; R93.5 Abnormal findings on diagnostic imaging of other abdominal regions, including retroperitoneum; R91.1 Solitary pulmonary nodule; K44.9 Diaphragmatic hernia without obstruction or gangrene; R93.2 Abnormal findings on diagnostic imaging of liver and biliary tract; N28.1 Cyst of kidney, acquired; R93.421 Abnormal radiologic findings on diagnostic imaging of right kidney; I70.0 Atherosclerosis of aorta; Z98.890 Other specified postprocedural states; K59.39 Other megacolon
CPT/HCPCS: 74160; 78227; 82565; 84520; A9537

== ENCOUNTER 2024-10-28 12:35 | Oncology outpatient (recurring) (ONCR) | payer MEDICARE, SELFPAY | END 2024-11-05 23:59 | disposition home or self-care (01) | PROVIDERS: PCP Family Medicine; Visit Provider Internal Medicine Medical Oncology | DX: C78.6 Secondary malignant neoplasm of retroperitoneum and peritoneum (principal); Z85.038 Personal history of other malignant neoplasm of large intestine; K63.5 Polyp of colon; Z87.891 Personal history of nicotine dependence | CPT/HCPCS: 99205 ==

== ENCOUNTER 2024-12-02 13:27 | Oncology outpatient (recurring) (ONCR) | payer MEDICARE, SELFPAY | END 2024-12-06 23:59 | disposition home or self-care (01) | PROVIDERS: PCP Family Medicine; Visit Provider Nurse Practitioner | DX: C77.2 Secondary and unspecified malignant neoplasm of intra-abdominal lymph nodes (principal); Z85.038 Personal history of other malignant neoplasm of large intestine; G89.3 Neoplasm related pain (acute) (chronic); Z79.899 Other long term (current) drug therapy; Z95.828 Presence of other vascular implants and grafts; Z87.891 Personal history of nicotine dependence | CPT/HCPCS: 99214; 99215 ==

== ENCOUNTER 2024-12-03 22:43 | Emergency (ER) | payer MEDICARE, SELFPAY ==
[2024-12-03 22:50] VITALS: BP 111/75; PULSE 98; RESP 18; TEMP 37.1; O2SAT 92
[2024-12-03 23:41] LABS: Basophils % 0.3 %; Eosinophils % 0.2 %; Hematocrit 46.4 % (37-53); Lymphocytes # 0.6 10^3/uL (0.8-4.8); Lymphocytes % 3.7 %; Mean Corpuscular HGB Conc 33.4 g/dL (30-55); Mean Corpuscular Hemoglobin 31.4 pg (27-33); Mean Corpuscular Volume 94.1 fl (82-101); Mean Platelet Volume 9.4 fL (7.4-10.4); Monocytes # 1.5 10^3/uL (0.2-0.9); Monocytes % 9.6 %; Neutrophils # 13.49 10^3/uL (1.8-7.7); Neutrophils % 85.4 %; Nucleated Red Blood Cells % 0 %; Platelet Count 206 10^3/cmm (157-399); Red Blood Count 4.93 10^6/uL (3.85-5.65); Red Cell Distribution Width 12.4 % (12.1-15.1); White Blood Count 15.78 10^3/uL (3.29-11.43)
--- NOTE | 2024-12-03 23:43 | W.ED.ABDPA2 ---
HPI - Abdominal Pain General: Chief Complaint: Abdominal Pain Stated Complaint: WEAKNESS, POSSIBLE SEPSIS Time Seen by Provider: 12/03/24 22:45 History of Present Illness: 69-year-old man with a history of colon cancer status post hemicolectomy in 2019, then found to have recurrence and has underwent EUS and biopsy of the jerrod hepatis lymph nodes on November 14 and the pathology showed adenocarcinoma compatible with colorectal primary patient had biliary stent placement on 11/24/2024. He had been very jaundiced and this has since improved. He presents today with fevers. says he is had fevers as high as 103 at home. He is had sweats where he drinks the bed. No cough. No chest pain. He has diffuse abdominal pain but the says this is not any different than it has been for some time now. No nausea or vomiting. Related Data Home Medications ?Medication ?Instructions ?Recorded ?Confirmed omeprazole 40 mg capsule,delayed mg PO 10/28/24 12/02/24 release hydrocodone 7.5 mg-acetaminophen tab PO 11/24/24 12/02/24 325 mg tablet Previous Rx's ?Medication ?Instructions ?Recorded ondansetron HCl 4 mg tablet 4 mg PO Q6H PRN nausea and 11/26/24 vomiting #30 tabs prochlorperazine maleate 10 mg 10 mg PO Q4H PRN mild nausea #30 11/26/24 tablet (Compazine) tabs Allergies Allergy/AdvReac Type Severity Reaction Status Date / Time morphine Allergy Unknown Verified 12/03/24 22:50 NSAIDS (Non-Steroidal Allergy Unknown Verified 12/03/24 22:50 Anti-Inflamma Review of Systems Narrative: Constitutional symptoms: Negative except as documented in HPI. Skin symptoms: Negative except as documented in HPI. Eye symptoms: Negative except as documented in HPI. ENMT symptoms: Negative except as documented in HPI. Respiratory symptoms: Negative except as documented in HPI. Cardiovascular symptoms: Negative except as documented in HPI. Gastrointestinal symptoms: Negative except as documented in HPI. Genitourinary symptoms: Negative except as documented in HPI. Musculoskeletal symptoms: Negative except as documented in HPI. Neurologic symptoms: Negative except as documented in HPI. Psychiatric symptoms: Negative except as documented in HPI. Endocrine symptoms: Negative except as documented in HPI. PFSH ED PFSH: Medical History Postoperative seroma Pneumonia Pleurisy Acute hypoxic respiratory failure Pulmonary embolism Colon cancer Status post hemicolectomy, currently in remission Colon polyps Surgical History S/P appendectomy H/O right hemicolectomy Social History (Updated 12/04/24 @ 03:54 by Jorge Fuentes MD) Smoking and tobacco/nicotine status: former use of tobacco/nicotine Quit status (tobacco/nicotine): has quit using Year quit tobacco: October 2024 Former quit date comment: He had been smoking only 3 cigarettes a day for the last 1 to 2 years Alcohol intake: current Alcohol intake frequency: few times a month Additional social history: Patient in the presence of his states he wants full code as discussed with Jorge Fuentes MD on 12/04/2024 Marital status: Physical Exam Narrative: EXAM NARRATIVE: General: Alert, no acute distress. Skin: Warm, dry. Head: Normocephalic, atraumatic. Neck: Supple, trachea midline. Eye: Extraocular movements are intact. Ears, nose, mouth and throat: Tacky oral mucosa Cardiovascular: Regular, Normal peripheral perfusion. Respiratory: Lungs are clear to auscultation, respirations are non-labored, breath sounds are equal, Symmetrical chest wall expansion. Gastrointestinal: Soft, diffuse nonfocal abdominal pain, Non distended Musculoskeletal: Normal ROM, no deformity. Neurological: Alert and oriented, No focal neurological deficit observed. Psychiatric: Cooperative, appropriate mood & affect. Course Vital Signs: Vital signs: Vital Signs Temperature 98.8 F 12/03/24 22:50 Pulse Rate 61 12/04/24 04:11 Respiratory Rate 18 12/04/24 03:40 Blood Pressure 117/72 12/04/24 04:11 Pulse Oximetry 94 12/04/24 04:11 Oxygen Delivery Me thod Room Air 12/04/24 03:40 MDM - Abdominal Pain Medical Decision Making Medical decision making: Differential diagnosis including but not limited to and based on the above HPI, review of systems and physical exam: Orders placed to evaluate differential diagnosis based on the above differential, HPI and physical exam. Concern for intra-abdominal infection, cholangitis, viral illness, urinary tract infection, pneumonia in this postsurgical patient with fevers. Lab Review: Laboratory results were reviewed and interpreted by myself the emergency room physician. Leukocytosis with white count of 16,000. No anemia. No renal failure. Sodium is acutely low at 125. CTA of the chest: Atelectasis versus scarring in the lower lungs. Possibly pneumonitis. No PE. This was reviewed and interpreted by myself the emergency room physician. I also reviewed the radiology report. CT of the abdomen pelvis with contrast: Interval placement of common bile duct stent, satisfactory in position. No identified complication. Development of mild central pneumobilia. Mild gallbladder distention. Multiple enlarged periaortic and retroperitoneal lymph nodes. Stable nodule in the right lung. This was reviewed and interpreted by myself the emergency room physician. I also reviewed the radiology report. Consultation: I spoke with Dr. Fuentes who is on-call for the hospitalist service. Initially had discussed admission but with the patient having a bilirubin of 1.6 and mildly elevated bated LFTs with his fever he is concern for cholangitis. He requests consultation with gastroenterology at [facility] for the patient had procedures done. I reviewed the patient's medical record. Consultation: I spoke with Dr. Waqar Grover on general surgery at [facility]. He feels that this may not be surgical but it is probably best to transfer the patient to [facility] for surgical evaluation. No current beds available so being transferred ER to ER. Consultation: I spoke with Dr. Rodriguez in the emergency room at [facility] who is excepted the patient. Assessment and plan: Fever Colon cancer with mets Dehydration Possible pneumonitis/pneumonia ?Rocephin and azithromycin given in the emergency room. IV fluids. -I discussed the patient with the accepting physician on-call. - Discussed findings and plan with patient. Answered any questions. - All laboratory values were reviewed and interpreted personally by myself, the ER physician - All imaging was reviewed and interpreted personally by myself, the ER physician. - Evaluation and treatment of this problem were appropriate in the emergency setting Lab Data 12/03/24 23:32 12/03/24 23:30 Labs/Radiology: Radiology Impressions Abdomen/Pelvis CT 12/04/24 00:06 IMPRESSION: 1. Interval placement of a common bile duct stent, satisfactory in position. No identified complication. Development of mild central pneumobilia. 2. Mild gallbladder distension with borderline wall thickening. No definitive cholelithiasis or pericholecystic fluid. 3. Multiple enlarged upper para-aortic and retroperitoneal lymph nodes, unchanged. Upper right para-aortic mass measuring 2.9 cm, unchanged. 4. Small hiatal hernia. 5. Mild sigmoid diverticulosis. No findings to suggest diverticulitis. 6. Mild prostatomegaly with central calcification, unchanged. 7. Nodule within the posteroinferior right lower lobe measuring 7 mm. This is unchanged in size from the comparison CT abdomen/pelvis from 10/22/2024, but increased from 3 mm on the comparison from 08/03/2024, highly concerning for metastatic lesion. COMMENTS: Consistent with the [employer]'s Incidental Findings Committee white paper (J Am Raffy Radiol 2018): Any incidental renal lesion less than 1 cm or classified as too small to characterize, or any incidental cystic renal lesion characterized as simple-appearing, is likely benign. No follow-up imaging is recommended for these lesions per consensus recommendations based on imaging criteria. Chest CTA 12/04/24 00:06 IMPRESSION: 1. No visualized pulmonary thromboembolus or acute cardiopulmonary process. 2. Bilateral lower lung discoid atelectasis/scarring, less likely pneumonitis. 3. Partially imaged common bile duct stent. Mild inflammation and trace free fluid adjacent to the proximal common bile duct. Mild central pneumobilia. Findings are likely postsurgical, cholangitis not excluded. Laboratory Results WBC 15.78 10^3/uL (3.29-11.43) H 12/03/24 23:32 RBC 4.93 10^6/uL (3.85-5.65) 12/03/24 23:32 Hgb 15.50 g/dL (11.27-16.99) 12/03/24 23:32 Hct 46.4 % (37-53) 12/03/24 23:32 MCV 94.1 fl (82-101) 12/03/24 23:32 MCH 31.4 pg (27-33) 12/03/24 23:32 MCHC 33.4 g/dL (30-55) 12/03/24 23:32 RDW 12.4 % (12.1-15.1) 12/03/24 23:32 Plt Count 206 10^3/cmm (157-399) 12/03/24 23:32 MPV 9.4 fL (7.4-10.4) 12/03/24 23:32 Neut % (Auto) 85.4 % 12/03/24 23:32 Lymph % (Auto) 3.7 % 12/03/24 23:32 [place] % (Auto) 9.6 % 12/03/24 23:32 Eos % (Auto) 0.2 % 12/03/24 23:32 Baso % (Auto) 0.3 % 12/03/24 23:32 Neut # (Auto) 13.49 10^3/uL (1.8-7.7) H 12/03/24 23:32 Lymph # (Auto) 0.6 10^3/uL (0.8-4.8) L 12/03/24 23:32 [place] # (Auto) 1.5 10^3/uL (0.2-0.9) H 12/03/24 23:32 Eos # (Auto) 0.0 10^3/uL (0.0-0.8) 12/03/24 23:32 Baso # (Auto) 0.0 10^3/uL (0.0-0.1) 12/03/24 23:32 Nucleated RBC % (auto) 0 % 12/03/24 23: Nucleated RBCs # 0.0 /100WBC 12/03/24 23:32 Sodium 125 mmol/L (136-145) L 12/03/24 23:30 Potassium 4.2 mmol/L (3.5-5.1) 12/03/24 23:30 Chloride 90 mmol/L (98-107) L 12/03/24 23:30 Carbon Dioxide 20 mmol/L (22-29) L 12/03/24 23:30 Anion Gap 19.2 (5-19) H 12/03/24 23:30 BUN 16 mg/dL (8-23) 12/03/24 23:30 Creatinine 0.8 mg/dL (0.7-1.2) 12/03/24 23:30 GFR Calculation 96.1 mL/min (90-130) 12/03/24 23:30 Glucose 133 mg/dL (65-115) H 12/03/24 23:30 Calculated Osmolality 263 mOsm/kg (285-295) L 12/03/24 23:30 Lactic Acid 1.1 mmol/L (0.5-2.2) 12/03/24 23:30 Calcium 9.1 mg/dL (8.5-10.5) 12/03/24 23:30 Total Bilirubin 1.6 mg/dL (0.15-1.2) H 12/03/24 23:30 AST 44 U/L (0-40) H 12/03/24 23:30 ALT 134 U/L (0-41) H 12/03/24 23:30 Alkaline Phosphatase 286 U/L (40-130) H 12/03/24 23:30 C-Reactive Protein 35.9 mg/L (0.0-4.9) H 12/03/24 23:30 Total Protein 7.3 g/dL (6.6-8.7) 12/03/24 23: Albumin 3.8 g/dL (3.5-5.2) 12/03/24 23: Globulin 3.5 g/dL (1.3-4.6) 12/03/24 23: Lipase 21 U/L (13-60) 12/03/24 23: Procalcitonin 1.77 ng/mL (0-0.5) H 12/03/24 23:30 Urine Color Yellow (Yellow) 12/04/24 03:27 Urine Appearance Clear (CLEAR) 12/04/24 03:27 Urine pH 6.5 (5-7) 12/04/24 03:27 Ur Specific Martin 1.024 (1.005-1.030) 12/04/24 03:27 Urine Protein Negative (Negative) 12/04/24 03:27 Urine Glucose (UA) Negative (Normal) 12/04/24 03:27 Urine Ketones Negative (Negative) 12/04/24 03:27 Urine Blood Trace (Negative) A 12/04/24 03:27 Urine Nitrate Negative (Negative) 12/04/24 03:27 Urine Bilirubin Negative (Negative) 12/04/24 03:27 Urine Urobilinogen 0.2 mg/dL (Negative) 12/04/24 03:27 Ur Leukocyte Esterase Negative (Negative) 12/04/24 03:27 Urine RBC 0-2 /hpf (0-2) 12/04/24 03:27 Urine WBC 0-5 /hpf (0-5) 12/04/24 03:27 Ur Squamous Epith Cells 0-5 /hpf (0-5) 12/04/24 03:27 Amorphous Sediment Not Reportable 12/04/24 03:27 Urine Bacteria None seen /hpf (NONE) 12/04/24 03:27 Hyaline Casts 0-4 /lpf H 12/04/24 03:27 Influenza A (PCR) Negative (Negative) 12/03/24 23:50 Influenza Type B (PCR) Negative (Negative) 12/03/24 23:50 RSV (PCR) Negative (Negative) 12/03/24 23:50 SARS-CoV-2 (PCR) Negative (Negative) 12/03/24 23:50 All radiology interpretation(s) finalized by discharge Discharge Plan Discharge Patient Disposition: Xfer Short-Term Hosp Condition: Stable Referrals: Earl Lawrence MD [Primary Care Provider, [facility]] Print Language: Latvian Coding Level of Care Code ED [employer] Operator for Mary Newman
[2024-12-04] VITALS (7 sets, daily range): BP systolic 108–130; BP diastolic 67–79; PULSE 61–84; RESP 18; O2SAT 88–95
[2024-12-04 00:04] LABS: Alanine Aminotransferase 134 U/L (0-41); Albumin Level 3.8 g/dL (3.5-5.2); Alkaline Phosphatase 286 U/L (40-130); Anion Gap 19.2 (5-19); Aspartate Amino Transferase 44 U/L (0-40); Blood Urea Nitrogen 16 mg/dL (8-23); C Reactive Protein 35.9 mg/L (0.0-4.9); Calcium 9.1 mg/dL (8.5-10.5); Carbon Dioxide 20 mmol/L (22-29); Chloride 90 mmol/L (98-107); Creatinine Clr Calc Pharmacy 88.4945; Globulin 3.5 g/dL (1.3-4.6); Glomerular Filtration Rate 96.1 mL/min (90-130); Glucose 133 mg/dL (65-115); Lipase 21 U/L (13-60); Osmolality Calculated 263 mOsm/kg (285-295); Potassium 4.2 mmol/L (3.5-5.1); Sodium 125 mmol/L (136-145); Total Bilirubin 1.6 mg/dL (0.15-1.2); Total Protein 7.3 g/dL (6.6-8.7)
[2024-12-04 00:05] LABS: Lactic Sepsis W/Reflex 1.1 mmol/L (0.5-2.2)
--- NOTE | 2024-12-04 00:06 | CTR_ITS ---
PROCEDURE INFORMATION: Exam: CTA Chest With Contrast Exam date and time: 12/04/2024 1:11 AM Age: 69 years old Clinical indication: Shortness of breath; Prior surgery; Surgery date: 3-7 days post-operative; Surgery type: Port, ercp w/ gallbladder stent; Additional info: SOB, h/o pe TECHNIQUE: Imaging protocol: Computed tomographic angiography of the chest with contrast. Exam focused on the arteries. 3D rendering (Not supervised by radiologist): MIP and/or 3D reconstructed images were created by the technologist. Radiation optimization: All CT scans at this facility use at least one of these dose optimization techniques: automated exposure control; mA and/or kV adjustment per patient size (includes targeted exams where dose is matched to clinical indication); or iterative reconstruction. Contrast material: OMNI 350; Contrast volume: 100 ml; Contrast route: INTRAVENOUS (IV); COMPARISON: CT angio chest PE protcl [id number] 07/28/2023 6:29 PM RADIATION DOSE METRICS: Total DLP (mGy-cm): 482 FINDINGS: Pulmonary arteries: No visualized pulmonary thromboembolus. Adequate contrast bolus timing. Aorta: Unremarkable. No aortic aneurysm. No aortic dissection. Lungs: Bilateral lower lung discoid atelectasis/scarring, decreased from the comparison. No identified acute infiltrate or consolidation. Pleural spaces: Unremarkable. No pneumothorax. No pleural effusion. Heart: Heart normal in size. Trace pericardial fluid. No significant calcified coronary artery atherosclerosis. Lymph nodes: Enlarged upper left paratracheal lymph node measuring 11 mm short axis, unchanged from the comparison. Gallbladder and biliary ducts: Partially imaged common bile duct stent. Mild inflammation and trace free fluid adjacent to the proximal common bile duct. Mild central pneumobilia. Bones/joints: [id number] thoracic spondylosis. No acute osseous abnormality. Soft tissues: Unremarkable. CT/CT angio chest PE protcl [id number] IMPRESSION: 1. No visualized pulmonary thromboembolus or acute cardiopulmonary process. 2. Bilateral lower lung discoid atelectasis/scarring, less likely pneumonitis. 3. Partially imaged common bile duct stent. Mild inflammation and trace free fluid adjacent to the proximal common bile duct. Mild central pneumobilia. Findings are likely postsurgical, cholangitis not excluded.
--- NOTE | 2024-12-04 00:06 | CTR_ITS ---
PROCEDURE INFORMATION: Exam: CT Abdomen And Pelvis With Contrast Exam date and time: 12/04/2024 1:11 AM Age: 69 years old Clinical indication: Abdominal pain; Generalized; Prior surgery; Surgery date: 3-7 days post-operative; Surgery type: Port, ercp with gallbladder stent; Recent dx of colon CA TECHNIQUE: Imaging protocol: Computed tomography of the abdomen and pelvis with contrast. Radiation optimization: All CT scans at this facility use at least one of these dose optimization techniques: automated exposure control; mA and/or kV adjustment per patient size (includes targeted exams where dose is matched to clinical indication); or iterative reconstruction. Contrast material: OMNI 350; Contrast volume: 100 ml; Contrast route: INTRAVENOUS (IV); COMPARISON: CT abdomen w con* [id number] 10/22/2024 11:28 AM RADIATION DOSE METRICS: Total DLP (mGy-cm): 311.7 FINDINGS: Lungs: Mild bilateral lower lung scarring/atelectasis. Nodule within the posteroinferior right lower lobe measuring 7 mm. Diaphragm: Small hiatal hernia. Liver: Liver normal in size and contour. No focal lesion. Gallbladder and biliary ducts: Interval placement of a common bile duct stent, satisfactory in position. No identified complication. Development of mild central pneumobilia. Mild gallbladder distension. Gallbladder wall upper normal in thickness measuring 3 mm. No definitive cholelithiasis or pericholecystic fluid. Pancreas: Normal. No ductal dilation. Spleen: Normal. No splenomegaly. Adrenal glands: Normal. No mass. Kidneys and ureters: Multiple bilateral renal cysts, largest on the left measuring 2.9 cm. Renal enhancement otherwise symmetrical. No hydronephrosis or urolithiasis. Stomach and bowel: Small and large bowel normal in caliber. No identified focal bowel wall thickening or adjacent mesenteric inflammation. [id number] stool retention throughout the colon, greatest proximally. Prior ileocolonic anastomosis. Nothing to suggest complication. Bowel gas pattern nonobstructive. Mild sigmoid diverticulosis. Appendix: No evidence of appendicitis. Intraperitoneal space: No free air. No significant free fluid. Vasculature: Moderate atherosclerotic calcification of the aorta and major branch vessels without aneurysm. Lymph nodes: Multiple enlarged upper para-aortic and retroperitoneal lymph nodes, unchanged. Upper right para-aortic mass measuring 2.9 cm, unchanged. Urinary bladder: Unremarkable as visualized. Reproductive: Mild prostatomegaly with central calcification, unchanged. Bones/joints: Moderate thoracolumbar spondylosis. No acute osseous abnormality. Soft tissues: Unremarkable. CT/CT abdomen pelvis w con* [id number] IMPRESSION: 1. Interval placement of a common bile duct stent, satisfactory in position. No identified complication. Development of mild central pneumobilia. 2. Mild gallbladder distension with borderline wall thickening. No definitive cholelithiasis or pericholecystic fluid. 3. Multiple enlarged upper para-aortic and retroperitoneal lymph nodes, unchanged. Upper right para-aortic mass measuring 2.9 cm, unchanged. 4. Small hiatal hernia. 5. Mild sigmoid diverticulosis. No findings to suggest diverticulitis. 6. Mild prostatomegaly with central calcification, unchanged. 7. Nodule within the posteroinferior right lower lobe measuring 7 mm. This is unchanged in size from the comparison CT abdomen/pelvis from 10/22/2024, but increased from 3 mm on the comparison from 08/03/2024, highly concerning for metastatic lesion. COMMENTS: Consistent with the [employer]'s Incidental Findings Committee white paper (J Am Raffy Radiol 2018): Any incidental renal lesion less than 1 cm or classified as too small to characterize, or any incidental cystic renal lesion characterized as simple-appearing, is likely benign. No follow-up imaging is recommended for these lesions per consensus recommendations based on imaging criteria.
[2024-12-04 00:11] LABS: Procalcitonin 1.77 ng/mL (0-0.5)
[2024-12-04 00:47] LABS: Influenza A NEGATIVE (Negative); Influenza B NEGATIVE (Negative); Respiratory Syncytial Virus Ce NEGATIVE (Negative); SARS-CoV-2 PCR NEGATIVE (Negative)
[2024-12-04] MEDS: iohexol 350 mg/mL 500 mL Btl (per mL) IV (01:15)
[2024-12-04] MEDS: cefepime 2,000 mg SDV 2000 MG IVP (02:51)
[2024-12-04] MEDS: sodium chloride 0.9% 1,000 ML 999 ML IV (02:51)
[2024-12-04] MEDS: AZITHROMYCIN ADD-Vantage 500 MG in 0.9% NaCl ADD-Vantage 250 ML 250 MG IV (02:51)
[2024-12-04] MEDS: ondansetron 2 mg/ML SDV 2 mL 4 MG IVP (03:29)
[2024-12-04 03:36] LABS: Bilirubin Urine Negative (Negative); Blood Urine Trace (Negative); Glucose Urine UA Negative (Normal); Ketones Urine Negative (Negative); Leukocyte Esterase Urine Negative (Negative); Nitrate Urine Negative (Negative); Protein Urine Negative (Negative); Specific Gravity, Urine 1.024 (1.005-1.030); Urine Appearance Clear (CLEAR); Urine Color Yellow (Yellow); Urobilinogen Urine 0.2 mg/dL (Negative); pH Urine 6.5 (5-7)
[2024-12-04 03:41] LABS: Bacteria Urine None Seen /hpf; Hyaline Casts Urine 0-4 /lpf; RBC Urine 0-2 /hpf (0-2); Squamous Epithelial Cell Urine 0-5 /hpf (0-5); WBC Urine 0-5 /hpf (0-5)
[2024-12-04] MEDS: HYDROmorphone 0.5 MG/0.5 ML INJ IVP (03:41)
--- NOTE | 2024-12-04 03:42 | P.HP_ITS ---
Providers/Chief Complaint 2 Admitting Physician: Jorge Fuentes MD Primary Care Provider: Earl Lawrence MD Chief Complaint: WEAKNESS, POSSIBLE SEPSIS History of Present Illness Lele Chowdhury is a 69 year old male comes in with abdominal pain fevers chills starting Sunday. Temperature was 100.4. He had a Port-A-Cath and a biliary stent placed on Sunday, November 28, 2024 at [facility] in [place]. Patient states that prior to the stent he had orange urine white stool and his eyes were yellow. That is all improved but he has developed the pain and fever day preceding admission and he had not had that even before the stent. Since the stent was placed his jaundice has been improving Today saturations in the high 80s on room air temperature 100.4. In the ER he is has been afebrile In July he had abdominal pain periumbilical but normal LFTs. With Dr. Manzanares he had moderately differentiated adeno CA and he had a colon adeno CA June 26, 2019. This is presumed to represent a recurrence with retroperitoneal nodes. Endoscopy November 24 showed gastritis. Patient is receiving chemo for colon cancer recurrence with FOLFOX and Avastin. Review of Systems 2 Narrative: General positive for fevers chills GI positive for abdominal pain negative Hematologic negative for clots or bleeding disorder Medications/Allergies Home Medications ?Medication ?Instructions ?Recorded ?Confirmed ?Last Taken ?Type omeprazole 40 mg capsule,delayed mg PO 10/28/24 Unknown History release hydrocodone 7.5 mg-acetaminophen tab PO 11/24/2412/02 Unknown History 325 mg tablet ondansetron HCl 4 mg tablet 4 mg PO Q6H PRN nausea and 11/26/24 12/02/24 Unknown Rx vomiting #30 tabs prochlorperazine maleate 10 mg 10 mg PO Q4H PRN mild n ausea #30 11/26/24 12/02/24 Unknown Rx tablet (Compazine) tabs Allergies Allergy/AdvReac Type Severity Reaction Status Date / Time morphine Allergy Unknown Verified 12/03/24 22:50 NSAIDS (Non-Steroidal Allergy Unknown Verified 12/03/24 22:50 Anti-Inflamma PFSH Acute 2 PFSH: Medical History Postoperative seroma Pneumonia Pleurisy Acute hypoxic respiratory failure Pulmonary embolism Colon cancer Status post hemicolectomy, currently in remission Colon polyps Surgical History S/P appendectomy H/O right hemicolectomy Social History (Updated 12/04/24 @ 03:54 by Jorge Fuentes MD) Smoking and tobacco/nicotine status: former use of tobacco/nicotine Quit status (tobacco/nicotine): has quit using Year quit tobacco: October 2024 Former quit date comment: He had been smoking only 3 cigarettes a day for the last 1 to 2 years Alcohol intake: current Alcohol intake frequency: few times a month Additional social history: Patient in the presence of his states he wants full code as discussed with Jorge Fuentes MD on 12/04/2024 Marital status: Vitals/I&O/Wt Last Vital Signs Temp 98.8 F 12/03/24 22:50 Pulse 65 12/04/24 03:40 Resp 18 12/04/24 03:40 BP 128/70 12/04/24 03:40 Pulse Ox 94 12/04/24 03:40 O2 Del Method Room Air 12/04/24 03:40 12/03/24 12/03/24 12/04/24 14:59 22:59 06:59 Intake Total 0 / 0 Balance 0 / 0 Weight last 48 hrs Weight 74.389 kg Physical Exam 2 Narrative: General Well-developed well-nourished male in no acute cardiopulmonary distress HEENT sclera not icteric CV regular rate and rhythm Lungs clear to auscultation bilaterally Abdomen positive bowel tones soft he has intermittent leave reproducible epigastric pain with palpation but this is not persistent and is transient and mild. No rebound tenderness. Back not currently tender to percussion. Calves no tenderness he has trace pretibial edema Data 12/03/24 23:32 12/03/24 23:30 Micro: Microbiology 12/03/24 23:32 Blood Culture - Preliminary Blood SPECIMEN COLLECTED 12/03/24 23:30 Blood Culture - Preliminary Blood SPECIMEN COLLECTED A&P Assessment and plan (1) Cholangitis: We have placed a call to the GI service at [facility] to see if stent needs to be changed or not. 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
[2024-12-04 12:54] LABS: Acinetobacter baumannii Not Detected (NOT DETECT); Bacteroides fragilis Not Detected (NOT DETECT); CTX-M Not Detected (NOT DETECT); Citrobacter Not Detected (NOT DETECT); Cronobacter sakazakii Not Detected (NOT DETECT); Enterobacter cloacae complex Not Detected (NOT DETECT); Enterobacter non cloacae Detected (NOT DETECT); Fusobacterium necrophorum Not Detected (NOT DETECT); Fusobacterium nucleatum Not Detected (NOT DETECT); Haemophilus influenzae Not Detected (NOT DETECT); IMP Resistance Gene Not Detected (NOT DETECT); KPC Resistance Gene Not Detected (NOT DETECT); Klebsiella pneumoniae group Not Detected (NOT DETECT); Morganella morganii Not Detected (NOT DETECT); NDM Resistance Gene Not Detected (NOT DETECT); Neisseria meningitidis Not Detected (NOT DETECT); OXA Resistance Gene Not Detected (NOT DETECT); Pan Candida Not Detected (NOT DETECT); Pan Gram-Positive Not Detected (NOT DETECT); Proteus mirabilis Not Detected (NOT DETECT); Pseudomonas aeruginosa Not Detected (NOT DETECT); Salmonella Not Detected (NOT DETECT); Serratia Not Detected (NOT DETECT); Serratia marcescens Not Detected (NOT DETECT); Stenotrophomonas maltophilia Not Detected (NOT DETECT); VIM Resistance Gene Not Detected (NOT DETECT)
== END 2024-12-04 09:17 | disposition short-term general hospital (02) ==
PROVIDERS: Emergency Provider Emergency Medicine; PCP Family Medicine
DX: C18.9 Malignant neoplasm of colon, unspecified (principal); C77.2 Secondary and unspecified malignant neoplasm of intra-abdominal lymph nodes; R06.02 Shortness of breath; R50.9 Fever, unspecified; E86.0 Dehydration; K83.09 Other cholangitis; R10.9 Unspecified abdominal pain; Z87.891 Personal history of nicotine dependence; Z11.52 Encounter for screening for COVID-19
CPT/HCPCS: 36415; 71275; 74177; 80053; 81001; 83605; 83690; 84145; 85025; 86140; 87040; 87077; 87150; 87186; 87205; 87637; 96365; 96375; 99285; J0456; J0692; J1171; J2405; J7030; J7050

== ENCOUNTER 2025-01-05 08:00 | Oncology outpatient (recurring) (ONCR) | payer MEDICARE, SELFPAY ==
[2024-12-08 08:13] LABS: Basophils % 0.7 %; Eosinophils # 0.2 10^3/uL (0.0-0.8); Eosinophils % 2.8 %; Hematocrit 40.7 % (37-53); Lymphocytes # 1.6 10^3/uL (0.8-4.8); Lymphocytes % 27.2 %; Mean Corpuscular HGB Conc 33.2 g/dL (30-55); Mean Corpuscular Hemoglobin 31.6 pg (27-33); Mean Corpuscular Volume 95.3 fl (82-101); Mean Platelet Volume 9.4 fL (7.4-10.4); Monocytes % 16.8 %; Neutrophils # 2.95 10^3/uL (1.8-7.7); Neutrophils % 51.8 %; Nucleated Red Blood Cells % 0 %; Platelet Count 214 10^3/cmm (157-399); Red Blood Count 4.27 10^6/uL (3.85-5.65); Red Cell Distribution Width 12.2 % (12.1-15.1)
[2024-12-08 08:18] LABS: Bilirubin Urine Negative (Negative); Blood Urine Negative (Negative); Glucose Urine UA Negative (Normal); Ketones Urine Negative (Negative); Leukocyte Esterase Urine Negative (Negative); Nitrate Urine Negative (Negative); Protein Urine Negative (Negative); Specific Gravity, Urine 1.013 (1.005-1.030); Urine Appearance Clear (CLEAR); Urine Color Yellow (Yellow); Urobilinogen Urine 0.2 mg/dL (Negative)
[2024-12-08 08:20] LABS: Add Urine Microscopic? YES; Bacteria Urine None Seen /hpf; Hyaline Casts Urine 0-4 /lpf; RBC Urine 0-2 /hpf (0-2); Squamous Epithelial Cell Urine 0-5 /hpf (0-5); WBC Urine 0-5 /hpf (0-5)
[2024-12-08 08:46] LABS: Slide Review Slide Review Perform
[2024-12-08 08:49] LABS: Carcinoembryonic Antigen 7.9 ng/mL (0.0-4.7)
[2024-12-08 09:00] LABS: Alanine Aminotransferase 151 U/L (0-41); Albumin Level 3.6 g/dL (3.5-5.2); Alkaline Phosphatase 192 U/L (40-130); Anion Gap 14.8 (5-19); Aspartate Amino Transferase 122 U/L (0-40); Blood Urea Nitrogen 13 mg/dL (8-23); Calcium 8.6 mg/dL (8.5-10.5); Carbon Dioxide 25 mmol/L (22-29); Chloride 99 mmol/L (98-107); Glomerular Filtration Rate 112.1 mL/min (90-130); Glucose 115 mg/dL (65-115); Magnesium 1.9 mg/dL (1.7-2.3); Osmolality Calculated 281 mOsm/kg (285-295); Potassium 3.8 mmol/L (3.5-5.1); Sodium 135 mmol/L (136-145); Total Bilirubin 0.8 mg/dL (0.15-1.2); Total Protein 6.6 g/dL (6.6-8.7)
[2024-12-08] MEDS: sodium chloride 0.9% 250 ML 75 ML IV (10:05)
[2024-12-08] MEDS: palonosetron 0.25 mg/5 mL SDV IVP (10:07)
[2024-12-08] MEDS: famotidine 20 mg/2 mL INJ IVP (10:07)
[2024-12-08] MEDS: dexamethasone 4 mg/mL INJ 5 mL 12 MG IVP (10:11)
[2024-12-08] MEDS: diphenhydrAMINE 50 mg/mL SDV 1mL 25 MG IVP (10:17)
[2024-12-08] MEDS: SODIUM CHLORIDE 0.9% IV (10:38)
[2024-12-08] MEDS: BEVACIZUMAB BVZR IV (10:38)
[2024-12-08] MEDS: dextrose 5% 250 ML 75 ML IV (12:10)
[2024-12-08] MEDS: leucovorin 750 MG in dextrose 5% 250 ML 140 MG IV (12:13)
[2024-12-08] MEDS: oxaliplatin 100 MG, oxaliplatin 60 MG in dextrose 5% 250 ML 141 MG IV (12:14)
[2024-12-08] MEDS: fluorouraciL 50 mg/ml MDV 100 mL 750 MG IVP (14:28)
[2024-12-08] MEDS: fluorouraciL 4,500 MG, elastomeric pump 1 PUMP in sodium chloride 0.9% (100 ml) 2 ML IV (14:29)
[2024-12-08 14:51] VITALS: BP 147/76; PULSE 67; RESP 16; TEMP 36.4; O2SAT 96
[2024-12-15 09:35] VITALS: BP 127/76; PULSE 65; RESP 16; TEMP 36.6; O2SAT 95
[2024-12-15 10:12] LABS: Basophils # 0.1 10^3/uL (0.0-0.1); Basophils % 0.9 %; Eosinophils # 0.3 10^3/uL (0.0-0.8); Eosinophils % 5.6 %; Hematocrit 43.1 % (37-53); Lymphocytes % 35.8 %; Mean Corpuscular HGB Conc 33.4 g/dL (30-55); Mean Corpuscular Volume 92.9 fl (82-101); Mean Platelet Volume 8.7 fL (7.4-10.4); Monocytes # 0.3 10^3/uL (0.2-0.9); Monocytes % 5.6 %; Neutrophils # 2.88 10^3/uL (1.8-7.7); Neutrophils % 51.7 %; Nucleated Red Blood Cells % 0 %; Platelet Count 269 10^3/cmm (157-399); Red Blood Count 4.64 10^6/uL (3.85-5.65); Red Cell Distribution Width 11.8 % (12.1-15.1); White Blood Count 5.56 10^3/uL (3.29-11.43)
[2024-12-15 10:31] LABS: Alanine Aminotransferase 62 U/L (0-41); Albumin Level 3.9 g/dL (3.5-5.2); Alkaline Phosphatase 196 U/L (40-130); Anion Gap 13.3 (5-19); Aspartate Amino Transferase 27 U/L (0-40); Blood Urea Nitrogen 14 mg/dL (8-23); Calcium 8.6 mg/dL (8.5-10.5); Carbon Dioxide 23 mmol/L (22-29); Chloride 101 mmol/L (98-107); Globulin 2.9 g/dL (1.3-4.6); Glucose 143 mg/dL (65-115); Osmolality Calculated 279 mOsm/kg (285-295); Potassium 4.3 mmol/L (3.5-5.1); Sodium 133 mmol/L (136-145); Total Bilirubin 0.6 mg/dL (0.15-1.2); Total Protein 6.8 g/dL (6.6-8.7)
[2024-12-22 07:47] LABS: Basophils # 0.1 10^3/uL (0.0-0.1); Eosinophils # 0.1 10^3/uL (0.0-0.8); Eosinophils % 2.5 %; Hematocrit 40.5 % (37-53); Lymphocytes # 1.7 10^3/uL (0.8-4.8); Mean Corpuscular HGB Conc 34.3 g/dL (30-55); Mean Corpuscular Hemoglobin 31.4 pg (27-33); Mean Corpuscular Volume 91.4 fl (82-101); Mean Platelet Volume 8.7 fL (7.4-10.4); Monocytes # 0.7 10^3/uL (0.2-0.9); Monocytes % 13.8 %; Neutrophils # 2.26 10^3/uL (1.8-7.7); Neutrophils % 47.5 %; Nucleated Red Blood Cells % 0 %; Platelet Count 175 10^3/cmm (157-399); Red Blood Count 4.43 10^6/uL (3.85-5.65); Red Cell Distribution Width 12.6 % (12.1-15.1); White Blood Count 4.77 10^3/uL (3.29-11.43)
[2024-12-22 08:11] LABS: Alanine Aminotransferase 46 U/L (0-41); Albumin Level 3.7 g/dL (3.5-5.2); Alkaline Phosphatase 177 U/L (40-130); Aspartate Amino Transferase 27 U/L (0-40); Blood Urea Nitrogen 10 mg/dL (8-23); Calcium 8.6 mg/dL (8.5-10.5); Carbon Dioxide 22 mmol/L (22-29); Chloride 104 mmol/L (98-107); Globulin 2.8 g/dL (1.3-4.6); Glomerular Filtration Rate 112.1 mL/min (90-130); Glucose 100 mg/dL (65-115); Osmolality Calculated 287 mOsm/kg (285-295); Sodium 139 mmol/L (136-145); Total Bilirubin 0.5 mg/dL (0.15-1.2); Total Protein 6.5 g/dL (6.6-8.7)
[2024-12-22] MEDS: sodium chloride 0.9% 250 ML 75 ML IV (08:49)
[2024-12-22] MEDS: palonosetron 0.25 mg/5 mL SDV IVP (08:52)
[2024-12-22] MEDS: dexamethasone 4 mg/mL INJ 5 mL 12 MG IVP (08:56)
[2024-12-22] MEDS: BEVACIZUMAB BVZR IV (09:38)
[2024-12-22] MEDS: SODIUM CHLORIDE 0.9% IV (09:38)
[2024-12-22 10:15] LABS: Bilirubin Urine Negative (Negative); Blood Urine Negative (Negative); Glucose Urine UA Negative (Normal); Ketones Urine Negative (Negative); Leukocyte Esterase Urine Negative (Negative); Nitrate Urine Negative (Negative); Protein Urine Negative (Negative); Specific Gravity, Urine 1.023 (1.005-1.030); Urine Appearance Cloudy (CLEAR); Urine Color Dark Yellow (Yellow)
[2024-12-22 10:21] LABS: Add Urine Microscopic? YES; Bacteria Urine None Seen /hpf; Hyaline Casts Urine 1.21 /lpf; Squamous Epithelial Cell Urine 0-5 /hpf (0-5); WBC Urine 0-5 /hpf (0-5)
[2024-12-22] MEDS: oxaliplatin 160 MG in dextrose 5% 250 ML 141 MG IV (10:51)
[2024-12-22] MEDS: leucovorin 740 MG in dextrose 5% 250 ML 62.5 MG IV (10:52)
[2024-12-22] MEDS: fluorouraciL 50 mg/ml MDV 100 mL 750 MG IVP (13:15)
[2024-12-22] MEDS: fluorouraciL 4,400 MG, elastomeric pump 1 PUMP in sodium chloride 0.9% (100 ml) 4 ML IV (13:22)
[2024-12-22 13:37] VITALS: BP 175/78; PULSE 60; TEMP 36.6; O2SAT 96
[2024-12-22] MEDS: dextrose 5% 250 ML 75 ML IV (14:04)
[2025-01-05 08:47] LABS: Basophils % 0.7 %; Eosinophils # 0.1 10^3/uL (0.0-0.8); Eosinophils % 1.1 %; Hematocrit 43.5 % (37-53); Lymphocytes # 2.2 10^3/uL (0.8-4.8); Lymphocytes % 35.5 %; Mean Corpuscular HGB Conc 34.5 g/dL (30-55); Mean Corpuscular Hemoglobin 32.4 pg (27-33); Mean Platelet Volume 8.9 fL (7.4-10.4); Monocytes # 1.2 10^3/uL (0.2-0.9); Monocytes % 20.1 %; Neutrophils # 2.58 10^3/uL (1.8-7.7); Neutrophils % 42.3 %; Nucleated Red Blood Cells % 0 %; Platelet Count 129 10^3/cmm (157-399); Red Blood Count 4.63 10^6/uL (3.85-5.65); Red Cell Distribution Width 14.6 % (12.1-15.1); White Blood Count 6.11 10^3/uL (3.29-11.43)
[2025-01-05 09:02] LABS: Alanine Aminotransferase 42 U/L (0-41); Albumin Level 3.8 g/dL (3.5-5.2); Alkaline Phosphatase 151 U/L (40-130); Anion Gap 17.4 (5-19); Aspartate Amino Transferase 25 U/L (0-40); Blood Urea Nitrogen 16 mg/dL (8-23); Calcium 8.7 mg/dL (8.5-10.5); Carbon Dioxide 23 mmol/L (22-29); Chloride 101 mmol/L (98-107); Globulin 2.8 g/dL (1.3-4.6); Glomerular Filtration Rate 96.1 mL/min (90-130); Glucose 91 mg/dL (65-115); Osmolality Calculated 285 mOsm/kg (285-295); Potassium 4.4 mmol/L (3.5-5.1); Sodium 137 mmol/L (136-145); Total Bilirubin 0.4 mg/dL (0.15-1.2); Total Protein 6.6 g/dL (6.6-8.7)
[2025-01-05 09:30] LABS: Bilirubin Urine Negative (Negative); Blood Urine Negative (Negative); Glucose Urine UA Negative (Normal); Ketones Urine Negative (Negative); Leukocyte Esterase Urine Negative (Negative); Nitrate Urine Negative (Negative); Protein Urine Negative (Negative); Specific Gravity, Urine 1.022 (1.005-1.030); Urine Appearance Clear (CLEAR); Urine Color Yellow (Yellow)
[2025-01-05 09:34] LABS: Add Urine Microscopic? YES
[2025-01-05] MEDS: sodium chloride 0.9% 250 ML 75 ML IV (09:53)
[2025-01-05] MEDS: palonosetron 0.25 mg/5 mL SDV IVP (09:54)
[2025-01-05] MEDS: dexamethasone 4 mg/mL INJ 5 mL 12 MG IVP (09:54)
[2025-01-05] MEDS: BEVACIZUMAB BVZR IV (10:21)
[2025-01-05] MEDS: SODIUM CHLORIDE 0.9% IV (10:21)
[2025-01-05 10:55] LABS: UA Manual Slide Review YES; UA Slide Review UA Slide Review Perf
[2025-01-05 10:58] LABS: Carcinoembryonic Antigen 13.3 ng/mL (0.0-4.7)
[2025-01-05 11:00] LABS: Bacteria Urine TRACE /hpf; Hyaline Casts Urine 0-4 /lpf; RBC Urine 0-4 /hpf (0-2); Squamous Epithelial Cell Urine 0-4 /hpf (0-5); WBC Urine 0-4 /hpf (0-5)
[2025-01-05] MEDS: dextrose 5% 250 ML 75 ML IV (11:22)
[2025-01-05] MEDS: oxaliplatin 160 MG in dextrose 5% 250 ML 141 MG IV (11:23)
[2025-01-05] MEDS: leucovorin 740 MG in dextrose 5% 250 ML 140 MG IV (11:24)
[2025-01-05] MEDS: fluorouraciL 50 mg/ml MDV 100 mL 750 MG IVP (13:46)
[2025-01-05] MEDS: fluorouraciL 4,400 MG, elastomeric pump 1 PUMP in sodium chloride 0.9% (100 ml) 4 ML IV (14:01)
[2025-01-05 14:09] VITALS: BP 157/84; PULSE 59; RESP 17; TEMP 36.2; O2SAT 97
== END 2025-01-05 23:59 | disposition home or self-care (01) ==
PROVIDERS: Internal Medicine Medical Oncology; PCP Family Medicine; Visit Provider Nurse Practitioner
DX: Z53.9 Procedure and treatment not carried out, unspecified reason; Z51.11 Encounter for antineoplastic chemotherapy; C77.2 Secondary and unspecified malignant neoplasm of intra-abdominal lymph nodes; C78.6 Secondary malignant neoplasm of retroperitoneum and peritoneum; Z85.038 Personal history of other malignant neoplasm of large intestine; Z87.891 Personal history of nicotine dependence; G89.3 Neoplasm related pain (acute) (chronic); D69.6 Thrombocytopenia, unspecified; Z79.899 Other long term (current) drug therapy; Z90.49 Acquired absence of other specified parts of digestive tract; Z79.631 Long term (current) use of antimetabolite agent
CPT/HCPCS: 36591; 80053; 81001; 82378; 83735; 85025; 96365; 96366; 96368; 96375; 96411; 96413; 96415; 96416; 96417; 96523; 99214; J0640; J1100; J1200; J2469; J3490; J7050; J7060; J9190; J9263; Q5118

== ENCOUNTER 2025-02-04 11:03 | Oncology outpatient (recurring) (ONCR) | payer MEDICARE, SELFPAY ==
[2025-01-19 08:33] LABS: Hematocrit 40.1 % (37-53); Hemoglobin 14.00 g/dL (11.27-16.99); Mean Corpuscular HGB Conc 34.9 g/dL (30-55); Mean Corpuscular Hemoglobin 32.0 pg (27-33); Mean Corpuscular Volume 91.6 fl (82-101); Nucleated Red Blood Cells % 0 %; Platelet Count 95 10^3/cmm (157-399); Red Blood Count 4.38 10^6/uL (3.85-5.65); White Blood Count 5.98 10^3/uL (3.29-11.43)
[2025-01-19 08:49] LABS: Glucose Urine UA Negative (Normal); Nitrate Urine Negative (Negative); Specific Gravity, Urine 1.016 (1.005-1.030)
[2025-01-19 08:52] LABS: Add Urine Microscopic? YES
[2025-01-19 08:59] LABS: Carcinoembryonic Antigen 13.9 ng/mL (0.0-4.7)
[2025-01-19 09:10] LABS: Alanine Aminotransferase 27 U/L (0-41); Albumin Level 3.7 g/dL (3.5-5.2); Alkaline Phosphatase 125 U/L (40-130); Anion Gap 16.8 (5-19); Aspartate Amino Transferase 22 U/L (0-40); Blood Urea Nitrogen 9 mg/dL (8-23); Calcium 8.9 mg/dL (8.5-10.5); Carbon Dioxide 22 mmol/L (22-29); Chloride 100 mmol/L (98-107); Creatinine Clr Calc Pharmacy 86.9070; Globulin 2.8 g/dL (1.3-4.6); Glucose 94 mg/dL (65-115); Osmolality Calculated 278 mOsm/kg (285-295); Potassium 3.8 mmol/L (3.5-5.1); Sodium 135 mmol/L (136-145); Total Protein 6.5 g/dL (6.6-8.7)
[2025-01-19 09:32] LABS: UA Slide Review UA Slide Review Perf
[2025-01-19] MEDS: dexamethasone 4 mg/mL INJ 5 mL 12 MG IVP (10:54)
[2025-01-19] MEDS: SODIUM CHLORIDE 0.9% IV (11:18)
[2025-01-19] MEDS: BEVACIZUMAB BVZR IV (11:18)
[2025-01-19] MEDS: leucovorin 740 MG in dextrose 5% 250 ML 62.5 MG IV (12:02)
[2025-01-19] MEDS: fluorouraciL 50 mg/ml MDV 100 mL 750 MG IVP (14:30)
[2025-01-19] MEDS: fluorouraciL 4,400 MG, elastomeric pump 1 PUMP in sodium chloride 0.9% (100 ml) 4 ML IV (14:30)
[2025-01-19 14:46] VITALS: BP 180/88; PULSE 62; RESP 17; TEMP 36.3; O2SAT 96
[2025-02-02 07:48] LABS: Hematocrit 36.6 % (37-53); Hemoglobin 12.60 g/dL (11.27-16.99); Mean Corpuscular HGB Conc 34.4 g/dL (30-55); Mean Corpuscular Hemoglobin 32.6 pg (27-33); Mean Corpuscular Volume 94.6 fl (82-101); Nucleated Red Blood Cells % 0 %; Platelet Count 111 10^3/cmm (157-399); Red Blood Count 3.87 10^6/uL (3.85-5.65); White Blood Count 4.46 10^3/uL (3.29-11.43)
[2025-02-02 08:04] LABS: Alanine Aminotransferase 21 U/L (0-41); Albumin Level 3.6 g/dL (3.5-5.2); Alkaline Phosphatase 114 U/L (40-130); Anion Gap 16.0 (5-19); Aspartate Amino Transferase 19 U/L (0-40); Blood Urea Nitrogen 10 mg/dL (8-23); Calcium 8.5 mg/dL (8.5-10.5); Carbon Dioxide 22 mmol/L (22-29); Chloride 103 mmol/L (98-107); Creatinine Clr Calc Pharmacy 86.9070; Globulin 2.4 g/dL (1.3-4.6); Glucose 93 mg/dL (65-115); Osmolality Calculated 283 mOsm/kg (285-295); Potassium 4.0 mmol/L (3.5-5.1); Sodium 137 mmol/L (136-145); Total Protein 6.0 g/dL (6.6-8.7)
[2025-02-02] MEDS: dexamethasone 4 mg/mL INJ 5 mL 12 MG IVP (09:11)
[2025-02-02] MEDS: BEVACIZUMAB BVZR IV (09:54)
[2025-02-02] MEDS: SODIUM CHLORIDE 0.9% IV (09:54)
[2025-02-02] MEDS: leucovorin 740 MG in dextrose 5% 250 ML 62.5 MG IV (10:34)
[2025-02-02] MEDS: fluorouraciL 4,400 MG, elastomeric pump 1 PUMP in sodium chloride 0.9% (100 ml) 4 ML IV (12:57)
[2025-02-02] MEDS: fluorouraciL 50 mg/ml MDV 100 mL 750 MG IVP (12:58)
[2025-02-02 13:28] VITALS: BP 151/91; PULSE 67; RESP 18; TEMP 37.1; O2SAT 97
== END 2025-02-05 23:59 | disposition home or self-care (01) ==
PROVIDERS: Internal Medicine Medical Oncology; Nurse Practitioner Family; PCP Family Medicine; Visit Provider Nurse Practitioner
DX: Z53.9 Procedure and treatment not carried out, unspecified reason; Z45.1 Encounter for adjustment and management of infusion pump
CPT/HCPCS: 80053; 81001; 82378; 85025; 96367; 96375; 96409; 96413; 96415; 96416; 96417; 96523; 99214; J0640; J1100; J2469; J7050; J7060; J9190; J9263; Q5118

== ENCOUNTER 2025-03-02 07:34 | Oncology outpatient (recurring) (ONCR) | payer MEDICARE, SELFPAY ==
[2025-02-16 08:32] LABS: Hematocrit 37.4 % (37-53); Hemoglobin 12.90 g/dL (11.27-16.99); Mean Corpuscular HGB Conc 34.5 g/dL (30-55); Mean Corpuscular Hemoglobin 33.6 pg (27-33); Mean Corpuscular Volume 97.4 fl (82-101); Nucleated Red Blood Cells % 0 %; Platelet Count 141 10^3/cmm (157-399); Red Blood Count 3.84 10^6/uL (3.85-5.65); White Blood Count 6.66 10^3/uL (3.29-11.43)
[2025-02-16 09:04] LABS: Carcinoembryonic Antigen 15.7 ng/mL (0.0-4.7)
[2025-02-16 09:15] LABS: Glucose Urine UA Negative (Normal); Nitrate Urine Negative (Negative); Specific Gravity, Urine 1.020 (1.005-1.030)
[2025-02-16 09:15] LABS: Alanine Aminotransferase 23 U/L (0-41); Albumin Level 3.7 g/dL (3.5-5.2); Alkaline Phosphatase 109 U/L (40-130); Anion Gap 13.8 (5-19); Aspartate Amino Transferase 23 U/L (0-40); Blood Urea Nitrogen 8 mg/dL (8-23); Calcium 8.4 mg/dL (8.5-10.5); Carbon Dioxide 22 mmol/L (22-29); Chloride 105 mmol/L (98-107); Creatinine Clr Calc Pharmacy 86.2265; Globulin 2.4 g/dL (1.3-4.6); Glucose 86 mg/dL (65-115); Osmolality Calculated 282 mOsm/kg (285-295); Potassium 3.8 mmol/L (3.5-5.1); Sodium 137 mmol/L (136-145); Total Protein 6.1 g/dL (6.6-8.7)
[2025-02-16 09:20] LABS: Add Urine Microscopic? YES; Universal Test for UA Present (0)
[2025-02-16] MEDS: dexamethasone 4 mg/mL INJ 5 mL 12 MG IVP (09:32)
[2025-02-16 09:35] LABS: UA Slide Review UA Slide Review Perf
[2025-02-16] MEDS: BEVACIZUMAB BVZR IV (09:44)
[2025-02-16] MEDS: SODIUM CHLORIDE 0.9% IV (09:44)
[2025-02-16] MEDS: leucovorin 730 MG in dextrose 5% 250 ML 62.5 MG IV (10:37)
[2025-02-16] MEDS: fluorouraciL 50 mg/ml MDV 100 mL 750 MG IVP (13:07)
[2025-02-16] MEDS: fluorouraciL 4,400 MG, elastomeric pump 1 PUMP in sodium chloride 0.9% (100 ml) 4 ML IV (13:07)
[2025-02-16 13:21] VITALS: BP 175/93; PULSE 64; RESP 17; TEMP 36.4; O2SAT 96
[2025-02-18 11:45] VITALS: BP 123/71; PULSE 56; RESP 16; TEMP 36.6; O2SAT 96
[2025-03-02 08:15] LABS: Hematocrit 39.4 % (37-53); Hemoglobin 13.30 g/dL (11.27-16.99); Mean Corpuscular HGB Conc 33.8 g/dL (30-55); Mean Corpuscular Hemoglobin 33.7 pg (27-33); Mean Corpuscular Volume 99.7 fl (82-101); Nucleated Red Blood Cells % 0 %; Platelet Count 118 10^3/cmm (157-399); Red Blood Count 3.95 10^6/uL (3.85-5.65); White Blood Count 6.00 10^3/uL (3.29-11.43)
[2025-03-02 08:47] LABS: Carcinoembryonic Antigen 16.5 ng/mL (0.0-4.7)
[2025-03-02 08:58] LABS: Alanine Aminotransferase 22 U/L (0-41); Albumin Level 3.9 g/dL (3.5-5.2); Alkaline Phosphatase 124 U/L (40-130); Anion Gap 15.7 (5-19); Aspartate Amino Transferase 22 U/L (0-40); Blood Urea Nitrogen 7 mg/dL (8-23); Calcium 8.8 mg/dL (8.5-10.5); Carbon Dioxide 22 mmol/L (22-29); Chloride 105 mmol/L (98-107); Creatinine Clr Calc Pharmacy 85.3195; Globulin 2.4 g/dL (1.3-4.6); Glucose 107 mg/dL (65-115); Osmolality Calculated 286 mOsm/kg (285-295); Potassium 3.7 mmol/L (3.5-5.1); Sodium 139 mmol/L (136-145); Total Protein 6.3 g/dL (6.6-8.7)
[2025-03-02 10:08] LABS: C.Diff PCR (Lab) NEGATIVE (Negative)
== END 2025-03-08 23:59 | disposition home or self-care (01) ==
PROVIDERS: Internal Medicine Medical Oncology; Nurse Practitioner Family; PCP Family Medicine; Visit Provider Nurse Practitioner
DX: C78.6 Secondary malignant neoplasm of retroperitoneum and peritoneum; C77.2 Secondary and unspecified malignant neoplasm of intra-abdominal lymph nodes; C18.9 Malignant neoplasm of colon, unspecified; R19.7 Diarrhea, unspecified; Z79.899 Other long term (current) drug therapy; Z87.891 Personal history of nicotine dependence; Z53.9 Procedure and treatment not carried out, unspecified reason
CPT/HCPCS: 80053; 81001; 82378; 85025; 87493; 96360; 96375; 96411; 96413; 96415; 96416; 96417; 96523; 99214; J0640; J1100; J2469; J7030; J7050; J7060; J9190; J9263; Q5118

== ENCOUNTER 2025-04-06 08:30 | Oncology outpatient (recurring) (ONCR) | payer MEDICARE, SELFPAY ==
[2025-03-10 09:03] LABS: Hematocrit 43.7 % (37-53); Hemoglobin 14.40 g/dL (11.27-16.99); Mean Corpuscular HGB Conc 33.0 g/dL (30-55); Mean Corpuscular Hemoglobin 33.7 pg (27-33); Mean Corpuscular Volume 102.3 fl (82-101); Nucleated Red Blood Cells % 0 %; Platelet Count 193 10^3/cmm (157-399); Red Blood Count 4.27 10^6/uL (3.85-5.65); White Blood Count 5.99 10^3/uL (3.29-11.43)
[2025-03-10 09:17] LABS: Alanine Aminotransferase 28 U/L (0-41); Albumin Level 4.0 g/dL (3.5-5.2); Alkaline Phosphatase 134 U/L (40-130); Anion Gap 15.0 (5-19); Aspartate Amino Transferase 25 U/L (0-40); Blood Urea Nitrogen 12 mg/dL (8-23); Calcium 8.8 mg/dL (8.5-10.5); Carbon Dioxide 22 mmol/L (22-29); Chloride 103 mmol/L (98-107); Globulin 3.0 g/dL (1.3-4.6); Glucose 137 mg/dL (65-115); Osmolality Calculated 284 mOsm/kg (285-295); Potassium 4.0 mmol/L (3.5-5.1); Sodium 136 mmol/L (136-145); Total Protein 7.0 g/dL (6.6-8.7)
[2025-03-10 09:24] LABS: Creatinine Clr Calc Pharmacy 85.5460
[2025-03-16 08:20] VITALS: BP 128/82; PULSE 67; TEMP 36.6; O2SAT 97
[2025-03-16] MEDS: dexamethasone 4 mg/mL INJ 5 mL 12 MG IVP (09:47)
[2025-03-16] MEDS: SODIUM CHLORIDE 0.9% IV (09:56)
[2025-03-16] MEDS: BEVACIZUMAB BVZR IV (09:56)
[2025-03-16] MEDS: leucovorin 720 MG in dextrose 5% 250 ML 62.5 MG IV (10:44)
[2025-03-16] MEDS: fluorouraciL 4,350 MG, elastomeric pump 1 PUMP in sodium chloride 0.9% (100 ml) 5 ML IV (11:25)
[2025-03-16 11:36] VITALS: BP 160/88; PULSE 53; RESP 17; TEMP 36.4; O2SAT 97
[2025-04-06 08:54] LABS: Hematocrit 42.8 % (37-53); Hemoglobin 14.20 g/dL (11.27-16.99); Mean Corpuscular HGB Conc 33.2 g/dL (30-55); Mean Corpuscular Hemoglobin 34.1 pg (27-33); Mean Corpuscular Volume 102.6 fl (82-101); Nucleated Red Blood Cells % 0 %; Platelet Count 189 10^3/cmm (157-399); Red Blood Count 4.17 10^6/uL (3.85-5.65); White Blood Count 3.68 10^3/uL (3.29-11.43)
[2025-04-06 09:22] LABS: Alanine Aminotransferase 27 U/L (0-41); Albumin Level 3.9 g/dL (3.5-5.2); Alkaline Phosphatase 118 U/L (40-130); Anion Gap 17.1 (5-19); Aspartate Amino Transferase 26 U/L (0-40); Blood Urea Nitrogen 15 mg/dL (8-23); Calcium 8.7 mg/dL (8.5-10.5); Carbon Dioxide 23 mmol/L (22-29); Chloride 103 mmol/L (98-107); Creatinine Clr Calc Pharmacy 84.6517; Globulin 2.7 g/dL (1.3-4.6); Glucose 115 mg/dL (65-115); Osmolality Calculated 290 mOsm/kg (285-295); Potassium 4.1 mmol/L (3.5-5.1); Sodium 139 mmol/L (136-145); Total Protein 6.6 g/dL (6.6-8.7)
[2025-04-06 09:35] LABS: Add Urine Microscopic? NO
[2025-04-06 09:43] LABS: Glucose Urine UA Negative (Normal); Nitrate Urine Negative (Negative); Specific Gravity, Urine 1.022 (1.005-1.030)
[2025-04-06 09:46] LABS: Charge for UA Resulting for Rev
[2025-04-06] MEDS: dexamethasone 4 mg/mL INJ 5 mL 12 MG IVP (10:24)
[2025-04-06 10:31] VITALS: BP 133/81; PULSE 54; RESP 16; TEMP 36.4; O2SAT 97
[2025-04-06] MEDS: SODIUM CHLORIDE 0.9% IV (10:51)
[2025-04-06] MEDS: BEVACIZUMAB BVZR IV (10:51)
[2025-04-06] MEDS: leucovorin 730 MG in dextrose 5% 250 ML 62.5 MG IV (11:46)
[2025-04-06] MEDS: fluorouraciL 4,350 MG, elastomeric pump 1 PUMP in sodium chloride 0.9% (100 ml) 5 ML IV (12:25)
[2025-04-06 12:40] VITALS: BP 122/73; PULSE 64; RESP 17; TEMP 36.3; O2SAT 98
== END 2025-04-07 23:59 | disposition home or self-care (01) ==
PROVIDERS: Internal Medicine Medical Oncology; Nurse Practitioner Family; PCP Family Medicine; Visit Provider Nurse Practitioner
DX: Z51.11 Encounter for antineoplastic chemotherapy; Z51.12 Encounter for antineoplastic immunotherapy; C18.9 Malignant neoplasm of colon, unspecified; C78.6 Secondary malignant neoplasm of retroperitoneum and peritoneum; C77.2 Secondary and unspecified malignant neoplasm of intra-abdominal lymph nodes; R19.7 Diarrhea, unspecified; Z79.52 Long term (current) use of systemic steroids; Z79.631 Long term (current) use of antimetabolite agent; Z79.899 Other long term (current) drug therapy; Z87.891 Personal history of nicotine dependence; Z96.89 Presence of other specified functional implants; Z53.9 Procedure and treatment not carried out, unspecified reason
CPT/HCPCS: 80053; 81003; 85025; 96360; 96365; 96375; 96413; 96416; 96417; 96523; 99214; J0640; J1100; J2469; J7030; J7050; J7060; J9190; J9999; Q5118

== ENCOUNTER 2025-04-29 10:05 | Oncology outpatient (recurring) (ONCR) | payer MEDICARE, SELFPAY ==
[2025-04-27 09:02] LABS: Hematocrit 41.6 % (37-53); Hemoglobin 14.20 g/dL (11.27-16.99); Mean Corpuscular HGB Conc 34.1 g/dL (30-55); Mean Corpuscular Hemoglobin 34.8 pg (27-33); Mean Corpuscular Volume 102.0 fl (82-101); Nucleated Red Blood Cells % 0 %; Platelet Count 238 10^3/cmm (157-399); Red Blood Count 4.08 10^6/uL (3.85-5.65); White Blood Count 4.70 10^3/uL (3.29-11.43)
[2025-04-27 09:23] LABS: Glucose Urine UA Negative (Normal); Nitrate Urine Negative (Negative); Specific Gravity, Urine 1.027 (1.005-1.030)
[2025-04-27 09:29] LABS: Carcinoembryonic Antigen 11.1 ng/mL (0.0-4.7)
[2025-04-27 09:40] LABS: Alanine Aminotransferase 25 U/L (0-41); Albumin Level 4.0 g/dL (3.5-5.2); Alkaline Phosphatase 96 U/L (40-130); Anion Gap 15.8 (5-19); Aspartate Amino Transferase 21 U/L (0-40); Blood Urea Nitrogen 12 mg/dL (8-23); Calcium 8.5 mg/dL (8.5-10.5); Carbon Dioxide 23 mmol/L (22-29); Chloride 102 mmol/L (98-107); Creatinine Clr Calc Pharmacy 85.0289; Globulin 2.2 g/dL (1.3-4.6); Glucose 103 mg/dL (65-115); Osmolality Calculated 284 mOsm/kg (285-295); Potassium 3.8 mmol/L (3.5-5.1); Sodium 137 mmol/L (136-145); Total Protein 6.2 g/dL (6.6-8.7)
[2025-04-27 09:47] LABS: Add Urine Microscopic? YES; UA Manual Slide Review YES; UA Slide Review UA Slide Review Perf
[2025-04-27] MEDS: dexamethasone 4 mg/mL INJ 5 mL 12 MG IVP (10:11)
[2025-04-27] MEDS: SODIUM CHLORIDE 0.9% IV (10:39)
[2025-04-27] MEDS: BEVACIZUMAB BVZR IV (10:39)
[2025-04-27] MEDS: leucovorin 730 MG in dextrose 5% 250 ML 80.75 MG IV (11:20)
[2025-04-27] MEDS: fluorouraciL 4,400 MG, elastomeric pump 1 PUMP in sodium chloride 0.9% (100 ml) 4 ML IV (12:01)
[2025-04-27 12:05] VITALS: BP 146/79; PULSE 57; RESP 17; TEMP 36.3; O2SAT 96
== END 2025-05-08 23:59 | disposition home or self-care (01) ==
PROVIDERS: Nurse Practitioner Family; PCP Family Medicine; Visit Provider Nurse Practitioner
DX: Z45.1 Encounter for adjustment and management of infusion pump; Z95.828 Presence of other vascular implants and grafts; Z53.9 Procedure and treatment not carried out, unspecified reason
CPT/HCPCS: 80053; 81001; 82378; 85025; 96375; 96413; 96416; 96417; 96523; 99214; J0640; J1100; J2469; J7050; J7060; J9190; Q5118

== ENCOUNTER 2025-05-27 12:30 | Oncology outpatient (recurring) (ONCR) | payer MEDICARE, SELFPAY ==
[2025-05-11 07:46] LABS: Hematocrit 47.2 % (37-53); Hemoglobin 16.00 g/dL (11.27-16.99); Mean Corpuscular HGB Conc 33.9 g/dL (30-55); Mean Corpuscular Hemoglobin 33.9 pg (27-33); Mean Corpuscular Volume 100.0 fl (82-101); Nucleated Red Blood Cells % 0 %; Platelet Count 169 10^3/cmm (157-399); Red Blood Count 4.72 10^6/uL (3.85-5.65); White Blood Count 6.28 10^3/uL (3.29-11.43)
[2025-05-11 08:14] LABS: Carcinoembryonic Antigen 12.7 ng/mL (0.0-4.7)
[2025-05-11 08:25] LABS: Alanine Aminotransferase 46 U/L (0-41); Albumin Level 4.2 g/dL (3.5-5.2); Alkaline Phosphatase 123 U/L (40-130); Anion Gap 18.0 (5-19); Aspartate Amino Transferase 41 U/L (0-40); Blood Urea Nitrogen 17 mg/dL (8-23); Calcium 9.2 mg/dL (8.5-10.5); Carbon Dioxide 22 mmol/L (22-29); Chloride 101 mmol/L (98-107); Globulin 3.1 g/dL (1.3-4.6); Glucose 168 mg/dL (65-115); Osmolality Calculated 289 mOsm/kg (285-295); Potassium 4.0 mmol/L (3.5-5.1); Sodium 137 mmol/L (136-145); Total Protein 7.3 g/dL (6.6-8.7)
[2025-05-11 08:54] VITALS: BP 158/92; PULSE 100; RESP 18; TEMP 36.6; O2SAT 98
[2025-05-11] MEDS: dexamethasone 4 mg/mL INJ 5 mL 12 MG IVP (09:18)
[2025-05-11] MEDS: SODIUM CHLORIDE 0.9% IV (09:25)
[2025-05-11] MEDS: BEVACIZUMAB BVZR IV (09:25)
[2025-05-11] MEDS: leucovorin 730 MG in dextrose 5% 250 ML 80.75 MG IV (10:03)
[2025-05-11] MEDS: fluorouraciL 4,350 MG, elastomeric pump 1 PUMP in sodium chloride 0.9% (100 ml) 5 ML IV (10:40)
[2025-05-11 10:45] VITALS: BP 154/79; PULSE 90; RESP 16; TEMP 35.5; O2SAT 96
[2025-05-11 11:26] LABS: Glucose Urine UA 1+ (Normal); Nitrate Urine Negative (Negative); Specific Gravity, Urine 1.030 (1.005-1.030)
[2025-05-11 11:28] LABS: Add Urine Microscopic? YES
[2025-05-11 11:58] LABS: UA Slide Review UA Slide Review Perf
[2025-05-25 07:58] LABS: Hematocrit 44.4 % (37-53); Hemoglobin 15.10 g/dL (11.27-16.99); Mean Corpuscular HGB Conc 34.0 g/dL (30-55); Mean Corpuscular Hemoglobin 33.9 pg (27-33); Mean Corpuscular Volume 99.8 fl (82-101); Nucleated Red Blood Cells % 0 %; Platelet Count 186 10^3/cmm (157-399); Red Blood Count 4.45 10^6/uL (3.85-5.65); White Blood Count 6.22 10^3/uL (3.29-11.43)
[2025-05-25 08:03] LABS: Alanine Aminotransferase 28 U/L (0-41); Albumin Level 4.3 g/dL (3.5-5.2); Alkaline Phosphatase 102 U/L (40-130); Anion Gap 14.8 (5-19); Aspartate Amino Transferase 22 U/L (0-40); Blood Urea Nitrogen 13 mg/dL (8-23); Calcium 9.0 mg/dL (8.5-10.5); Carbon Dioxide 25 mmol/L (22-29); Chloride 100 mmol/L (98-107); Globulin 2.6 g/dL (1.3-4.6); Glucose 137 mg/dL (65-115); Osmolality Calculated 284 mOsm/kg (285-295); Potassium 3.8 mmol/L (3.5-5.1); Sodium 136 mmol/L (136-145); Total Protein 6.9 g/dL (6.6-8.7)
[2025-05-25] MEDS: dexamethasone 4 mg/mL INJ 5 mL 12 MG IVP (09:01)
[2025-05-25] MEDS: BEVACIZUMAB BVZR IV (09:23)
[2025-05-25] MEDS: SODIUM CHLORIDE 0.9% IV (09:23)
[2025-05-25] MEDS: leucovorin 720 MG in dextrose 5% 250 ML 80.5 MG IV (10:14)
[2025-05-25] MEDS: fluorouraciL 4,350 MG, elastomeric pump 1 PUMP in sodium chloride 0.9% (100 ml) 5 ML IV (10:51)
[2025-05-27 13:26] VITALS: BP 123/74; PULSE 84; RESP 18; TEMP 36.6; O2SAT 97
[2025-05-27 13:51] LABS: Glucose Urine UA Negative (Normal); Nitrate Urine Negative (Negative); Specific Gravity, Urine 1.023 (1.005-1.030)
[2025-05-27 13:56] LABS: Add Urine Microscopic? YES
[2025-05-27 14:46] LABS: C.Diff PCR (Lab) NEGATIVE (Negative)
[2025-05-27 15:03] LABS: UA Slide Review UA Slide Review Perf
[2025-05-27 15:49] LABS: Add Urine Microscopic? YES; Glucose Urine UA Negative (Normal); Nitrate Urine Negative (Negative); Specific Gravity, Urine 1.023 (1.005-1.030)
[2025-05-27 15:50] LABS: UA Slide Review UA Slide Review Perf
== END 2025-06-07 23:59 | disposition home or self-care (01) ==
PROVIDERS: Internal Medicine Medical Oncology; Nurse Practitioner Family; PCP Family Medicine; Visit Provider Nurse Practitioner
DX: Z45.1 Encounter for adjustment and management of infusion pump; Z95.828 Presence of other vascular implants and grafts; C78.6 Secondary malignant neoplasm of retroperitoneum and peritoneum; R19.7 Diarrhea, unspecified; Z53.9 Procedure and treatment not carried out, unspecified reason
CPT/HCPCS: 80053; 81001; 82274; 82378; 85025; 87045; 87427; 87449; 87493; 96375; 96413; 96416; 96417; 96523; 99214; J0640; J1100; J2469; J7050; J7060; J9190; Q5118

== ENCOUNTER 2025-06-19 14:26 | Outpatient (CLI) | payer MEDICARE, SELFPAY | END 2025-06-19 14:27 | disposition home or self-care (01) | LOC: LAB 14:28 | PROVIDERS: PCP Family Medicine; Visit Provider Nurse Practitioner Family | DX: R19.7 Diarrhea, unspecified (principal) | CPT/HCPCS: 82705; 87045; 87177; 87209; 87328; 87329; 87427; 87449 ==

== ENCOUNTER 2025-07-06 09:30 | Oncology outpatient (recurring) (ONCR) | payer MEDICARE, SELFPAY ==
[2025-06-08 08:12] LABS: Hematocrit 43.4 % (37-53); Hemoglobin 15.00 g/dL (11.27-16.99); Mean Corpuscular HGB Conc 34.6 g/dL (30-55); Mean Corpuscular Hemoglobin 34.5 pg (27-33); Mean Corpuscular Volume 99.8 fl (82-101); Nucleated Red Blood Cells % 0 %; Platelet Count 158 10^3/cmm (157-399); Red Blood Count 4.35 10^6/uL (3.85-5.65); White Blood Count 5.63 10^3/uL (3.29-11.43)
[2025-06-08 08:35] LABS: Alanine Aminotransferase 19 U/L (0-41); Albumin Level 3.9 g/dL (3.5-5.2); Alkaline Phosphatase 91 U/L (40-130); Anion Gap 14.3 (5-19); Aspartate Amino Transferase 18 U/L (0-40); Blood Urea Nitrogen 11 mg/dL (8-23); Calcium 8.8 mg/dL (8.5-10.5); Carbon Dioxide 24 mmol/L (22-29); Chloride 103 mmol/L (98-107); Globulin 2.5 g/dL (1.3-4.6); Glucose 81 mg/dL (65-115); Osmolality Calculated 282 mOsm/kg (285-295); Potassium 4.3 mmol/L (3.5-5.1); Sodium 137 mmol/L (136-145); Total Protein 6.4 g/dL (6.6-8.7)
[2025-06-08] MEDS: dexamethasone 4 mg/mL INJ 5 mL 12 MG IVP (09:44)
[2025-06-08] MEDS: SODIUM CHLORIDE 0.9% IV (10:02)
[2025-06-08] MEDS: BEVACIZUMAB BVZR IV (10:02)
[2025-06-08] MEDS: leucovorin 730 MG in dextrose 5% 250 ML 62.5 MG IV (11:02)
[2025-06-08] MEDS: fluorouraciL 4,350 MG, elastomeric pump 1 PUMP in sodium chloride 0.9% (100 ml) 5 ML IV (11:45)
[2025-06-08 11:51] VITALS: BP 178/91; PULSE 50; RESP 18; TEMP 36.1; O2SAT 96
[2025-06-22 07:45] LABS: Hematocrit 45.2 % (37-53); Hemoglobin 15.30 g/dL (11.27-16.99); Mean Corpuscular HGB Conc 33.8 g/dL (30-55); Mean Corpuscular Hemoglobin 34.4 pg (27-33); Mean Corpuscular Volume 101.6 fl (82-101); Nucleated Red Blood Cells % 0 %; Platelet Count 168 10^3/cmm (157-399); Red Blood Count 4.45 10^6/uL (3.85-5.65); White Blood Count 6.67 10^3/uL (3.29-11.43)
[2025-06-22 08:05] LABS: Alanine Aminotransferase 24 U/L (0-41); Albumin Level 4.2 g/dL (3.5-5.2); Alkaline Phosphatase 100 U/L (40-130); Aspartate Amino Transferase 21 U/L (0-40); Blood Urea Nitrogen 14 mg/dL (8-23); Calcium 8.9 mg/dL (8.5-10.5); Carbon Dioxide 23 mmol/L (22-29); Chloride 105 mmol/L (98-107); Globulin 2.4 g/dL (1.3-4.6); Glucose 125 mg/dL (65-115); Osmolality Calculated 290 mOsm/kg (285-295); Sodium 139 mmol/L (136-145); Total Protein 6.6 g/dL (6.6-8.7)
[2025-06-22 08:11] LABS: Anion Gap 14.9 (5-19); Potassium 3.9 mmol/L (3.5-5.1)
[2025-06-22] MEDS: dexamethasone 4 mg/mL INJ 5 mL 12 MG IVP (09:30)
[2025-06-22] MEDS: BEVACIZUMAB BVZR IV (10:01)
[2025-06-22] MEDS: SODIUM CHLORIDE 0.9% IV (10:01)
[2025-06-22] MEDS: leucovorin 730 MG in dextrose 5% 250 ML 62.5 MG IV (10:46)
[2025-06-22] MEDS: fluorouraciL 4,350 MG, elastomeric pump 1 PUMP in sodium chloride 0.9% (100 ml) 5 ML IV (11:25)
[2025-06-22 11:29] VITALS: BP 144/72; PULSE 59; O2SAT 98
[2025-06-22 11:51] LABS: Glucose Urine UA Negative (Normal); Nitrate Urine Negative (Negative); Specific Gravity, Urine 1.019 (1.005-1.030)
[2025-06-22 11:57] LABS: Add Urine Microscopic? YES; Universal Test for UA Present (0)
[2025-06-22 12:07] LABS: UA Slide Review UA Slide Review Perf
[2025-07-06 09:58] LABS: Hematocrit 40.2 % (37-53); Hemoglobin 13.30 g/dL (11.27-16.99); Mean Corpuscular HGB Conc 33.1 g/dL (30-55); Mean Corpuscular Hemoglobin 33.5 pg (27-33); Mean Corpuscular Volume 101.3 fl (82-101); Nucleated Red Blood Cells % 0 %; Platelet Count 173 10^3/cmm (157-399); Red Blood Count 3.97 10^6/uL (3.85-5.65); White Blood Count 7.58 10^3/uL (3.29-11.43)
[2025-07-06 10:07] LABS: Glucose Urine UA Negative (Normal); Nitrate Urine Negative (Negative); Specific Gravity, Urine 1.021 (1.005-1.030)
[2025-07-06 10:12] LABS: Add Urine Microscopic? YES; Universal Test for UA Present (0)
[2025-07-06 10:23] LABS: UA Manual Slide Review YES; UA Slide Review UA Slide Review Perf
[2025-07-06 10:32] LABS: Carcinoembryonic Antigen 9.8 ng/mL (0.0-4.7)
[2025-07-06 10:45] LABS: Alanine Aminotransferase 22 U/L (0-41); Albumin Level 3.8 g/dL (3.5-5.2); Alkaline Phosphatase 125 U/L (40-130); Anion Gap 15.0 (5-19); Aspartate Amino Transferase 22 U/L (0-40); Blood Urea Nitrogen 10 mg/dL (8-23); Calcium 8.5 mg/dL (8.5-10.5); Carbon Dioxide 24 mmol/L (22-29); Chloride 102 mmol/L (98-107); Globulin 2.3 g/dL (1.3-4.6); Glucose 86 mg/dL (65-115); Osmolality Calculated 282 mOsm/kg (285-295); Potassium 4.0 mmol/L (3.5-5.1); Sodium 137 mmol/L (136-145); Total Protein 6.1 g/dL (6.6-8.7)
[2025-07-06] MEDS: dexamethasone 4 mg/mL INJ 5 mL 12 MG IVP (11:22)
[2025-07-06] MEDS: BEVACIZUMAB BVZR IV (11:40)
[2025-07-06] MEDS: SODIUM CHLORIDE 0.9% IV (11:40)
[2025-07-06] MEDS: leucovorin 730 MG in dextrose 5% 250 ML 62.5 MG IV (12:20)
[2025-07-06] MEDS: fluorouraciL 4,350 MG, elastomeric pump 1 PUMP in sodium chloride 0.9% (100 ml) 5 ML IV (13:21)
[2025-07-06 14:36] VITALS: BP 150/71; PULSE 58; TEMP 36.3; O2SAT 97
== END 2025-07-06 23:59 | disposition home or self-care (01) ==
PROVIDERS: Internal Medicine Medical Oncology; PCP Family Medicine; Visit Provider Nurse Practitioner Family
DX: Z51.11 Encounter for antineoplastic chemotherapy; Z51.12 Encounter for antineoplastic immunotherapy; C18.9 Malignant neoplasm of colon, unspecified; C78.6 Secondary malignant neoplasm of retroperitoneum and peritoneum; C77.2 Secondary and unspecified malignant neoplasm of intra-abdominal lymph nodes; G89.3 Neoplasm related pain (acute) (chronic); R19.7 Diarrhea, unspecified; K92.1 Melena; R03.0 Elevated blood-pressure reading, without diagnosis of hypertension; Z79.899 Other long term (current) drug therapy; Z79.52 Long term (current) use of systemic steroids; Z79.631 Long term (current) use of antimetabolite agent; Z87.891 Personal history of nicotine dependence; Z53.9 Procedure and treatment not carried out, unspecified reason
CPT/HCPCS: 80053; 81001; 82378; 85025; 96365; 96366; 96367; 96375; 96413; 96416; 96523; 99214; J0640; J1100; J2469; J7050; J7060; J9190; Q5118

== ENCOUNTER 2025-07-08 12:11 | Oncology outpatient (recurring) (ONCR) | payer MEDICARE, SELFPAY | END 2025-07-08 23:59 | disposition home or self-care (01) | PROVIDERS: PCP Family Medicine; Visit Provider Nurse Practitioner Family | DX: Z51.11 Encounter for antineoplastic chemotherapy (principal); Z51.12 Encounter for antineoplastic immunotherapy; C18.9 Malignant neoplasm of colon, unspecified; C78.6 Secondary malignant neoplasm of retroperitoneum and peritoneum; C77.2 Secondary and unspecified malignant neoplasm of intra-abdominal lymph nodes; G89.3 Neoplasm related pain (acute) (chronic); R19.7 Diarrhea, unspecified; K92.1 Melena; R03.0 Elevated blood-pressure reading, without diagnosis of hypertension; Z79.899 Other long term (current) drug therapy; Z79.52 Long term (current) use of systemic steroids; Z79.631 Long term (current) use of antimetabolite agent; Z87.891 Personal history of nicotine dependence; Z53.9 Procedure and treatment not carried out, unspecified reason; Z45.1 Encounter for adjustment and management of infusion pump; Z95.828 Presence of other vascular implants and grafts | CPT/HCPCS: 96523 ==